=== PATIENT | male | born 1965 | race Caucasian/White ===

== ENCOUNTER 2016-05-14 14:32 | Inpatient (IN) | payer OTHER ==
[2016-05-14] MEDS ORDERED: RX INFO: IV CONTRAST WAS GIVEN 1 EACH MISC MISCELLANE PRN (15:06)
--- NOTE | 2016-05-14 15:10 | ED ---
General Adult HPI - General Chief complaint: Shortness of Breath Stated complaint: SOB Time Seen by Provider: 05/14/16 14:45 Source: EMS, RN notes reviewed, old records reviewed Mode of arrival: ambulatory Limitations: altered mental status - History of Present Illness Initial comments: This is a 50-year-old male who comes to us from [facility]. Patient was sent was because they diagnosed him with pneumonia and altered mental status. According to the report that I received the patient to breathing and staff stated though he is mentally delayed he is altered mentally to them. Patient is unable to give any history because of his condition and there is no family or caregiver with the patient. Patient's x-ray results and lab work were sent with him I will review those. - Related Data Home Medications Medication Instructions Recorded Confirmed Benztropine Mesylate 0.5 mg PO TID 05/14/16 05/14/16 Cetirizine HCl [Zyrtec] 10 mg PO DAILY 05/14/16 05/14/16 Cholecalciferol [Vitamin D3] 2,000 unit PO BID 05/14/16 05/14/16 Gemfibrozil [Lopid] 600 mg PO BID 05/14/16 05/14/16 Multivitamins, Thera [Multivitamin] 1 tab PO DAILY 05/14/16 05/14/16 Propranolol [Inderal] 40 mg PO BID 05/14/16 05/14/16 QUEtiapine FUMARATE [SEROquel] 400 mg PO HS 05/14/16 05/14/16 Ranitidine HCl [Zantac] 150 mg PO BID 05/14/16 05/14/16 clonazePAM [KlonoPIN] 1 mg PO TID@0900,1600,199905/14/16 05/14/16 Allergies Allergy/AdvReac Type Severity Reaction Status Date / Time No Known Allergies Allergy Verified 05/14/16 15:43 Review of Systems ROS Statement: Those systems with pertinent positive or pertinent negative responses have been documented in the HPI. ROS Other: All systems not noted in ROS Statement are negative. General Exam - General Exam Comments Initial Comments: GENERAL: Patient is well-developed and well-nourished. Patient is nontoxic and well- hydrated and is in no acute distress. Patient is somewhat lethargic but does wake up with some stimulation he is unable to answer any questions or ENT: Neck is soft and supple. No significant lymphadenopathy is noted. Oropharynx is clear. Moist mucous membranes. Neck has full range of motion without eliciting any pain. EYES: The sclera were anicteric and conjunctiva were pink and moist. Extraocular movements were intact and pupils were equal round and reactive to light. Eyelids were unremarkable. PULMONARY: Patient is significantly diminished breath sounds on the right side CARDIOVASCULAR: There is a regular rate and rhythm without any murmurs gallops or rubs. ABDOMEN: Soft and nontender with normal bowel sounds. SKIN: Skin is clear with no lesions or rashes and otherwise unremarkable. NEUROLOGIC: Patient is alert and oriented 0. Cranial nerves II through XII are grossly intact. MUSCULOSKELETAL: Normal extremities with adequate strength and full range of motion. No lower extremity swelling or edema. No calf tenderness. PSYCHIATRIC: Unable to assess Limitations: altered mental status Course Vital Signs 05/14/16 05/14/16 05/14/16 14:39 14:48 16:17 Temperature 98.3 F 99.2 F Pulse Rate 80 80 Respiratory 14 14 18 Rate Blood Pressure 112/61 114/58 O2 Sat by Pulse 94 L 95 Oximetry Medical Decision Making - Medical Decision Making I did a computed tomography scan to rule out PE there was no PE found however they saw bilateral infiltrates. - Lab Data Lab Results 05/14/16 Range/Units 15:40 Sample Site rbrach ABG pH 7.36 (7.35-7.45) ABG pCO2 47 H (35-45) mmHg ABG pO2 89 (83-108) mmHg ABG HCO3 26 H (21-25) mmol/L ABG Total CO2 27 H (19-24) mmol/L ABG O2 Saturation 96.0 (94-97) % ABG Base Excess 1.0 mmol/L FiO2 50 % Disposition Clinical Impression: Pneumonia Disposition: ADMITTED IP TO THIS [facility] Time of Disposition: 16:32
[2016-05-14 15:47] LABS: ABG PCO2 47 mmHg (35-45); ABG PH 7.36 (7.35-7.45); ABG PO2 89 mmHg (83-108)
[2016-05-14 15:48] LABS: ABG HCO3 26 mmol/L (21-25); ABG TCO2 27 mmol/L (19-24)
--- NOTE | 2016-05-14 16:21 | CT ---
CT CHEST FOR PULMONARY EMBOLISM. EXAMINATION TYPE: CT chest angio for PE DATE OF EXAM: 05/14/2016 4:02 PM INDICATION: Patient poor historian (special needs). Patient unable to follow directions. Patient le thargic. CT DLP: 672 mGycm, Automated exposure control for dose reduction was used. CONTRAST: Patient injected with 100 mL of Omnipaque 350. COMPARISON: NONE TECHNIQUE: CT of the chest is performed on a spiral scan at 2 mm thick sections. Study is performed with intravenous contrast timed for evaluation for pulmonary embolism. This will limit additional po rtions of the evaluation. 3-D MIP images reconstructed by the technologist are reviewed on the compu ter in the coronal and sagittal planes. FINDINGS: No persistent filling defects are evident to suggest an acute pulmonary embolism. No mediastinal or hilar adenopathy enlarged by CT criteria is evident. Mediastinum shifted to the le ft. There is elevation of the right diaphragm. There are small pretracheal lymph nodes present not la rger than 1 cm. The ascending aorta diameter at the level of the main pulmonary artery is 3.4 cm. Th e main pulmonary artery diameter at the bifurcation is 3.7 cm. Correlate for pulmonary hypertension There is a 1.3 cm density in the posterior right apex. This appears pleural-based. There is a large c onsolidation in the right lower lobe. Correlate for atelectasis and pneumonia. There is a left lower lobe consolidation. Correlate for pneumonia Limited CT section through the upper abdomen are unremarkable. IMPRESSIONS: 1. No acute pulmonary embolism. 2. Bibasilar consolidations. Correlate for pneumonia. 3. There are some additional subtle areas of increased density such as a 1.3 cm density adjacent to t he pleural margin at the right apex. Underlying abnormality such as neoplasm cannot be excluded. Foll ow-up can be performed.
[2016-05-14] MEDS ORDERED: PNEUMONIA PROTOCOL UTILIZED 1 EACH MISC PO PRN (16:33)
[2016-05-14] MEDS: IPRATROPIUM-ALBUTEROL 3 ML NEB INHALATION PRN (16:59)
[2016-05-14] MEDS ORDERED: ACETAMINOPHEN TAB 500 MG TAB PO STA (19:47)
[2016-05-14] MEDS: PROPRANOLOL 40 MG TAB PO SCH (21:30)
[2016-05-14] MEDS: GEMFIBROZIL 600 MG TAB PO SCH (21:30)
[2016-05-14] MEDS: FAMOTIDINE 20 MG TAB PO SCH (21:30)
[2016-05-14] MEDS: CHOLECALCIFEROL 1,000 UNIT TAB PO SCH (21:30)
[2016-05-14] MEDS: TERAZOSIN 5 MG CAP PO SCH (21:30)
[2016-05-14] MEDS: QUEtiapine 400 MG TAB PO SCH (21:32)
[2016-05-15] MEDS ORDERED: FUROSEMIDE 10 MG/ML 4 ML VIAL IV STA ×2 (00:45→18:25)
[2016-05-15 00:50] LABS: Basophils % (A) 0 %; CH 29.4; CHCM 33.5; Eosinophils % (A) 0 %; HDW 3.07; Luc # (Auto) 0.11; Luc % (Auto) 2; Lymphocytes # (A) 0.7 k/uL (1.0-4.8); Lymphocytes % (A) 14 %; MCH 29.6 pg (25.0-35.0); MCHC 33.4 g/dL (31.0-37.0); MCV 88.4 fL (80.0-100.0); Mean Platelet Volume 8.7; Monocytes # (A) 0.1 k/uL (0-1.0); Monocytes % (A) 2 %; Neutrophils # (A) 4.2 k/uL (1.3-7.7); Neutrophils % (A) 82 %; RDW 14.1 % (11.5-15.5); WBC 5.1 k/uL (3.8-10.6); WBC (Perox) 5.21
[2016-05-15 00:54] LABS: Glucose,Whole Blood 146 mg/dL (75-99)
[2016-05-15 00:58] LABS: Anion Gap 13 mmol/L; Blood Urea Nitrogen 18 mg/dL (9-20); Calcium 7.1 mg/dL (8.4-10.2); Carbon Dioxide 27 mmol/L (22-30); Chloride 98 mmol/L (98-107); Glucose 151 mg/dL (74-99); Non-African American GFR(MDRD) >60 (>60 ml/min/1.73 sqM); Sodium 138 mmol/L (137-145)
[2016-05-15 01:08] LABS: Manual Review Performed
[2016-05-15 01:11] LABS: ABG HCO3 29 mmol/L (21-25); ABG PCO2 64 mmHg (35-45); ABG PH 7.27 (7.35-7.45); ABG PO2 81 mmHg (83-108); ABG TCO2 31 mmol/L (19-24)
[2016-05-15 01:12] LABS: ABG Base Excess 2.3 mmol/L; ABG Oxygen Saturation 93.8 % (94-97)
[2016-05-15] MEDS: GEMFIBROZIL 600 MG TAB PO SCH ×2 (06:04→16:43)
--- NOTE | 2016-05-15 07:47 | XR ---
EXAMINATION TYPE: XR chest 2V DATE OF EXAM: 05/15/2016 6:49 AM HISTORY: Pneumonia. REFERENCE: Previous study dated 05/14/2016. FINDINGS: There is apparent elevation of the right hemidiaphragm. There is colonic interposition on t he right. There is right basilar airspace disease. This likely represents atelectasis. The left lung is clear. Heart size is obscured. No definite pleural fluid is seen. IMPRESSION: 1. MARKED ELEVATION RIGHT HEMIDIAPHRAGM. THIS MAY BE DUE TO DIAPHRAGMATIC PARALYSIS. 2. RIGHT BASILAR AIRSPACE DISEASE EITHER REPRESENTING ATELECTASIS OR PNEUMONIA. THIS HAS WORSENED FRO M PREVIOUS.
[2016-05-15] MEDS: LORATADINE 10 MG TAB PO SCH (09:33)
[2016-05-15] MEDS: CHOLECALCIFEROL 1,000 UNIT TAB PO SCH ×2 (09:33→21:24)
[2016-05-15] MEDS: FAMOTIDINE 20 MG TAB PO SCH ×2 (09:33→21:24)
[2016-05-15] MEDS: clonazePAM 1 MG TAB PO SCH ×3 (09:33→20:29)
[2016-05-15] MEDS: MULTIVITAMINS, THERA 1 EACH TAB PO SCH (09:33)
[2016-05-15] MEDS: PROPRANOLOL 40 MG TAB PO SCH ×2 (09:33→21:24)
--- NOTE | 2016-05-15 12:34 | P.CNPUL ---
History of Present Illness Consult date: 05/15/16 Reason for consult: dyspnea, cough, pneumonia Chief complaint: Shortness of breath History of present illness: This is a 50-year-old gentleman with a history of COPD exacerbation and right basilar pneumonia. He was transferred down from [facility]. I was called last night. We recommended some BiPAP therapy for him. Apparently did not want to wear the mask. He is not a particularly good historian. He rambles on and on. Takes a long time to answer questions. The patient is apparently mentally delayed and that explains his poor history. Anyway does not appear to be in any distress at all. Again his chest x-ray shows some right basilar infiltrate in the chronically elevated right hemidiaphragm. It was not clear to us what his complaints were. No additional history can be reliably obtained from this patient. Review of Systems ROS unobtainable: due to mental status Past Medical History Past Medical History: Hypertension Additional Past Medical History / Comment(s): developmentally delayed History of Any Multi-Drug Resistant Organisms: None Reported Past Surgical History: Hernia Repair Additional Past Surgical History / Comment(s): breast reconstructive surgery, hernia surgery x4 Past Anesthesia/Blood Transfusion Reactions: No Reported Reaction Past Psychological History: No Psychological Hx Reported Smoking Status: Former smoker Medications and Allergies Home Medications Medication Instructions Recorded Confirmed Type Cetirizine HCl [Zyrtec] 10 mg PO DAILY 05/14/16 05/14/16 History Cholecalciferol [Vitamin D3] 2,000 unit PO BID 05/14/16 05/14/16 History Gemfibrozil [Lopid] 600 mg PO BID 05/14/16 05/14/16 History Multivitamins, Thera [Multivitamin] 1 tab PO DAILY 05/14/16 05/14/16 History Propranolol [Inderal] 40 mg PO BID 05/14/16 05/14/16 History QUEtiapine FUMARATE [SEROquel] 400 mg PO HS 05/14/16 05/14/16 History Ranitidine HCl [Zantac] 150 mg PO BID 05/14/16 05/14/16 History Terazosin [Hytrin] 5 mg PO HS 05/14/16 05/14/16 History clonazePAM [KlonoPIN] 1 mg PO TID@0900,1600,199905/14/16 05/14/16 History Allergies Allergy/AdvReac Type Severity Reaction Status Date / Time No Known Allergies Allergy Verified 05/14/16 15:43 Physical Exam Osteopathic Statement: *. No significant issues noted on an osteopathic structural exam other than those noted in the History and Physical/Consult. Vitals: Vital Signs Temp Pulse Pulse Resp BP BP Pulse Ox 05/15/16 08:00 98.5 F 76 25 H 123/73 83 L 05/15/16 04:00 98.3 F 67 20 110/62 89 L 05/15/16 02:15 20 90 L 05/15/16 00:45 68 20 104/70 94 L 05/15/16 00:00 97.1 F L 69 20 109/78 97 05/14/16 20:00 97.6 F 86 20 127/80 90 L 05/14/16 19:42 101.5 F H 83 20 123/73 95 05/14/16 18:37 97.8 F 84 14 123/73 95 05/14/16 17:10 78 05/14/16 17:00 98.9 F 80 14 118/67 96 Intake and Output 05/14/16 05/15/16 05/15/16 22:59 06:59 14:59 Intake Total 150 Output Total 1650 Balance -1500 Intake: Intake, IV Titration 150 Amount Levofloxacin 750Mg-D5w 150 Pmx 750 mg In Dextrose/ Water 1 150ml.bag @ 100 mls/hr IVPB Q24H [facility] Rx#: [id number] Output: Urine 1650 Other: Voiding Method Toilet Toilet Toilet Urinal Urinal Urinal # Voids 1 Weight 94.2 kg 94.2 kg No acute distress, oriented 2. No respiratory distress. No audible wheezing. HEENT examination is grossly unremarkable. Neck is Supple. Full range of motion. Cardiovascular examination reveals regular rhythm rate. S1 and S2 normal. Lungs reveal diminished breath sounds on the right. A few scattered rhonchi. No wheezes. Abdomen soft. Extremities are intact. He's getting a well-healed scar over his right breast area. Results - Laboratory Findings CBC and BMP: 05/15/16 00:35 05/15/16 00:35 ABG ABG pH 7.27 (7.35-7.45) L 05/15/16 00:58 ABG pCO2 64 mmHg (35-45) H 05/15/16 00:58 ABG pO2 81 mmHg (83-108) L 05/15/16 00:58 ABG O2 Saturation 93.8 % (94-97) L 05/15/16 00:58 Abnormal lab findings: Abnormal Labs 05/15/16 05/15/16 05/15/16 00:35 00:35 00:42 Plt Count 99 L Lymphocytes # 0.7 L ABG pH ABG pCO2 ABG pO2 ABG HCO3 ABG Total CO2 ABG O2 Saturation Glucose 151 H POC Glucose (mg/dL) 146 H Calcium 7.1 L 05/15/16 00:58 Plt Count Lymphocytes # ABG pH 7.27 L ABG pCO2 64 H ABG pO2 81 L ABG HCO3 29 H ABG Total CO2 31 H ABG O2 Saturation 93.8 L Glucose POC Glucose (mg/dL) Calcium - Diagnostic Findings Chest x-ray: image reviewed Assessment and Plan (1) COPD (chronic obstructive pulmonary disease) Status: Acute (2) Pneumonia Status: Acute Plan: Plan Medications are reviewed. We'll make sure that he is on appropriate medications including DuoNeb and performance with Pulmicort. Also he should be on antibiotics either ceftriaxone and azithromycin or another appropriate combination for community-acquired pneumonia. He is not Particularly Bronchospastic so Steroids Are Not Indicated. We'll Continue to Follow. Follow -Up Chest X-Ray Should Be on a Day or so. Time with Patient: Greater than 30
[2016-05-15] MEDS ORDERED: ACETAMINOPHEN TAB 500 MG TAB PO PRN (14:04)
[2016-05-15] MEDS ORDERED: HYDROcodone/APAP 5-325MG 1 EACH TAB PO PRN (14:04)
--- NOTE | 2016-05-15 14:30 | HP ---
DATE OF ADMISSION: 05/15/2016 CHIEF COMPLAINT: Shortness of breath and cough. HISTORY OF PRESENT ILLNESS: This 50-year-old gentleman with past medical history of multiple medical problems including hypertension, history of developmental delay, history of hernia repair, in the [facility] home was being followed by Dr. Guzmán in the outpatient setting. The patient presented to [facility] with fever, cough, shortness of breath and change in mental status. Patient was diagnosed to have pneumonia. The patient was subsequently transferred to [facility] and admitted for further evaluation and treatment. The patient unable to give a coherent history. The patient had features of respiratory failure. Dr. Hoang was consulted. BIPAP was recommended but apparently the patient refused and the patient trying to take the oxygen away also. Pulse ox was 83 on room air last night. PAST MEDICAL HISTORY: History of hypertension, history of developmental delay, history of hernia repair. Medications prior to admission include home medications are: 1. Hytrin 5 mg p.o. q.h.s. 2. Klonopin 1 mg p.o. t.i.d. 3. Multivitamin 1 p.o. daily. 4. Lopid 600 mg p.o. b.i.d. 6. Zantac 150 mg p.o. b.i.d. 7. Seroquel 400 mg p.o. q.h.s. 8. Vitamin D3 2000 b.i.d. 9. Inderal 40 mg p.o. b.i.d. ALLERGIES: None. FAMILY HISTORY: No history of heart disease or strokes in the family. SOCIAL HISTORY: Previous history of smoking. No history of alcohol intake. REVIEW OF SYSTEMS: Could not be taken at length because of the patient change in mental status and developmental delay. PHYSICAL EXAMINATION: Patient is conscious, confused. Pulse 76, blood pressure 120/70, respirations 16, temperature 98.5. Pulse ox is 90% on 2 liters and down up to 83 on room air. HEENT: Conjunctivae normal. Oral mucosa moist. NECK: no jugular venous distention. No carotid bruit. No lymph node enlargement. CARDIOVASCULAR: S1, S2 muffled. No S3, no S4. RESPIRATORY: Breath sounds diminished at the bases. Breathing efforts are marked increased. Bilateral scattered rhonchi and crackles. Respiratory wheezing also present. ABDOMEN: Soft, nontender. No mass palpable. Legs: No edema. No swelling. Nervous system: Higher function as mentioned. Moves all 4 limbs. No focal motor or sensory deficits. LYMPHATICS: No lymph nodes palpable in the neck, axillae or groin. SKIN: No ulcer, rash or bleeding. LABS: WBC 5.1, hemoglobin is 13. Otherwise, ABGs noted. BMP glucose 146, calcium 7.1. ASSESSMENT: 1. Chronic obstructive pulmonary disease, acute exacerbation, with bibasilar pneumonia, possibly gram-negative with acute hypoxic hypercarbic respiratory failure. 2. Acute respiratory acidosis. 3. Noncompliance with treatment. 4. Thrombocytopenia undetermined etiology. 5. History of hypertension. 6. History of developmental delay. 7. History of hernia repair. 8. History of breast reconstruction surgery. 9. Remote history of nicotine dependence. 10. FULL CODE. RECOMMENDATIONS AND DISCUSSION: In this 50-year-old male who presented with multiple complex medical issues, we will monitor the patient closely. Continue the current medications and continue symptomatic treatment. We will optimize bronchodilator treatment. Consult Dr. Hoang. Empiric antibiotics. DVT prophylaxis. Otherwise, I would also recommend resume the home medications. Follow cultures. Repeat labs will be ordered. ABG's noted. Guarded prognosis because of multiple complex medical issues. Further recommendations to follow. A copy of dictation forwarded to Dr. Guzmán who is the primary care physician. RA
[2016-05-15] MEDS: IPRATROPIUM-ALBUTEROL 3 ML NEB INHALATION SCH ×2 (15:57→19:18)
[2016-05-15] MEDS: LEVOFLOXACIN 750MG-D5W PMX 750 MG in DEXTROSE/WATER 1 150ML.BAG IVPB SCH (16:48)
[2016-05-15 18:56] LABS: ABG Base Excess 5.2 mmol/L; ABG HCO3 29 mmol/L (21-25); ABG PCO2 45 mmHg (35-45); ABG PH 7.43 (7.35-7.45); ABG PO2 58 mmHg (83-108); ABG TCO2 31 mmol/L (19-24)
[2016-05-15 18:59] LABS: Glucose,Whole Blood 192 mg/dL (75-99)
[2016-05-15] MEDS: BUDESONIDE 1 MG/2 ML NEBU INHALATION SCH (19:18)
[2016-05-15] MEDS: FORMOTEROL FUMARATE 20 MCG/2 ML NEBU INHALATION SCH (19:19)
[2016-05-15] MEDS ORDERED: NALOXONE 0.4 MG/ML 1 ML VIAL IV PRN (19:20)
[2016-05-15] MEDS ORDERED: ONDANSETRON 4 MG/2 ML VIAL IVP PRN (19:24)
[2016-05-15] MEDS: methylPREDNISolone SOD SUCCI 40 MG/ML 1 ML VIAL IV SCH ×2 (20:13→23:10)
[2016-05-15 20:34] LABS: Appearance,Urine Clear (Clear); Bilirubin,Urine Negative (Negative); Glucose,Urine (UA) Negative (Negative); Ketones,Urine Negative (Negative); Leukocyte Esterase,Urine Negative (Negative); Mucus,Urine Rare /hpf; Nitrite,Urine Negative (Negative); Particle Count 5187; Protein,Urine Trace (Negative); Specific Gravity,Urine 1.006 (1.001-1.035); Squamous Epithelial Cell,Urine <1 /hpf (0-4); UA Billing (MACRO vs. MICRO) MICRO; Urobilinogen,Urine <2.0 mg/dL (<2.0)
[2016-05-15] MEDS: ALPRAZolam 0.25 MG TAB PO PRN (20:53)
[2016-05-15] MEDS: TERAZOSIN 5 MG CAP PO SCH (21:24)
[2016-05-15] MEDS: QUEtiapine 400 MG TAB PO SCH (21:24)
[2016-05-16] MEDS: ALPRAZolam 0.25 MG TAB PO PRN (04:15)
[2016-05-16 05:07] LABS: Basophils % (A) 1 %; CH 29.5; CHCM 32.5; Eosinophils % (A) 0 %; HCT 43.2 % (39.0-53.0); HDW 2.93; Luc # (Auto) 0.15; Luc % (Auto) 3; Lymphocytes # (A) 0.5 k/uL (1.0-4.8); Lymphocytes % (A) 11 %; MCH 29.6 pg (25.0-35.0); MCHC 32.5 g/dL (31.0-37.0); MCV 91.3 fL (80.0-100.0); Mean Platelet Volume 9.7; Monocytes # (A) 0.2 k/uL (0-1.0); Monocytes % (A) 4 %; Neutrophils # (A) 3.5 k/uL (1.3-7.7); Neutrophils % (A) 80 %; RBC 4.73 m/uL (4.30-5.90); RDW 14.2 % (11.5-15.5); WBC 4.3 k/uL (3.8-10.6); WBC (Perox) 4.52
[2016-05-16 05:12] LABS: Anion Gap 16 mmol/L; Blood Urea Nitrogen 19 mg/dL (9-20); Calcium 7.8 mg/dL (8.4-10.2); Carbon Dioxide 27 mmol/L (22-30); Chloride 99 mmol/L (98-107); Glucose 153 mg/dL (74-99); Magnesium 2.3 mg/dL (1.6-2.3); Non-African American GFR(MDRD) >60 (>60 ml/min/1.73 sqM); Phosphorous 2.8 mg/dL (2.5-4.5); Sodium 142 mmol/L (137-145)
[2016-05-16 05:14] LABS: Potassium 4.6 mmol/L (3.5-5.1)
[2016-05-16] MEDS: methylPREDNISolone SOD SUCCI 40 MG/ML 1 ML VIAL IV SCH ×3 (06:18→18:18)
--- NOTE | 2016-05-16 07:06 | XR ---
EXAMINATION TYPE: XR chest 1V DATE OF EXAM: 05/16/2016 6:42 AM CLINICAL HISTORY: Difficulty breathing an pneumonia progress study. TECHNIQUE: Single AP portable upright view of the chest is obtained. COMPARISON: Chest x-ray from one day earlier. CTA chest 2 days earlier. FINDINGS: There is persistent markedly elevated right hemidiaphragm. There is persistent right media l basilar atelectasis and/or consolidation. There is new right midlung linear atelectasis. There is p ersistent left perihilar opacity. No new pleural effusion or pneumothorax is seen bilaterally. Cardia c silhouette size is within normal limits. Osseous structures are intact. IMPRESSION: There is elevated right hemidiaphragm with right medial basilar atelectasis and/or consol idation and left perihilar infiltrate all redemonstrated. New right midlung lateral linear atelectasi s is noted.
[2016-05-16] MEDS ORDERED: PANTOPRAZOLE 40 MG TABLET PO SCH (07:30)
[2016-05-16] MEDS: PROPRANOLOL 40 MG TAB PO SCH ×2 (08:11→22:06)
[2016-05-16] MEDS: CHOLECALCIFEROL 1,000 UNIT TAB PO SCH ×2 (08:11→22:06)
[2016-05-16] MEDS: LORATADINE 10 MG TAB PO SCH (08:12)
[2016-05-16] MEDS: FAMOTIDINE 20 MG TAB PO SCH ×2 (08:12→22:06)
[2016-05-16] MEDS: GEMFIBROZIL 600 MG TAB PO SCH ×2 (08:12→18:17)
[2016-05-16] MEDS: IPRATROPIUM-ALBUTEROL 3 ML NEB INHALATION SCH ×4 (08:23→19:29)
[2016-05-16] MEDS: FORMOTEROL FUMARATE 20 MCG/2 ML NEBU INHALATION SCH ×2 (08:23→19:29)
[2016-05-16] MEDS: BUDESONIDE 1 MG/2 ML NEBU INHALATION SCH ×2 (08:23→19:29)
--- NOTE | 2016-05-16 09:20 | P.PN ---
Subjective Progress note dated 05/16/2016 This is a 50-year-old gentleman that we moved over here from the sixth floor yesterday. He apparently was very agitated and confused. He is a mentally delayed anyway and the patient was a pulling off his oxygen point office BiPAP. His saturations were low. I moved him over here just for closer monitoring and observation. Currently he is either between room air in 2 L. His saturations are okay today. He is getting appointment 9 IV at [facility]. I came to the ICU yesterday on the . Currently we place him on DuoNeb's. He's also on Perforomist and Pulmicort updrafts twice a day Solu-Medrol 40 every 6. He received Lasix yesterday. His head CT was initially negative. He seemed to be a bit more comfortable right now. Chest x-ray shows bibasilar and bilateral infiltrates. Objective - Vital Signs Vital signs: Vital Signs Temp 98.9 F 05/16/16 04:00 Pulse 79 05/16/16 08:48 Resp 20 05/16/16 07:00 BP 104/58 05/16/16 07:00 Pulse Ox 92 L 05/16/16 07:00 Intake & Output 05/15/16 05/16/16 05/16/16 18:59 06:59 18:59 Intake Total 422 240 Output Total 1830 Balance 422 -1590 Weight 91.6 kg Intake: IV 240 0.9 240 Oral 422 Output: Urine 1830 Other: Voiding Method Toilet Indwelling Catheter Urinal # Voids 2 2 - Exam No acute distress. Lying on his side. No respiratory difficulty. No audible wheezing. HEENT examination is grossly unremarkable. Mucous membranes are moist. No oral lesions. Neck supple. Full range of motion. No adenopathy or thyromegaly. Cardiovascular examination reveals regular rhythm rate. Not tachycardic. His heart rates regular. Lungs reveal some mild coarse rhonchi. No wheezes. A few crackles. Doesn't take deep breaths. Abdomen soft bowel sounds are heard. Extremities are intact. - Labs CBC & Chem 7: 05/16/16 04:39 05/16/16 04:39 Labs: Abnormal Lab Results - Last 24 Hours (Table) 05/15/16 05/15/16 05/15/16 Range/Units 18:08 18:42 20:00 Plt Count (150-450) k/uL Lymphocytes # (1.0-4.8) k/uL ABG pO2 58 L (83-108) mmHg ABG HCO3 29 H (21-25) mmol/L ABG Total CO2 31 H (19-24) mmol/L ABG O2 Saturation 90.0 L (94-97) % Glucose (74-99) mg/dL POC Glucose (mg/dL) 192 H (75-99) mg/dL Calcium (8.4-10.2) mg/dL Urine Protein Trace H (Negative) Urine Blood Trace H (Negative) Urine Mucus Rare H (None) /hpf 05/16/16 05/16/16 Range/Units 04:39 04:39 Plt Count 102 L (150-450) k/uL Lymphocytes # 0.5 L (1.0-4.8) k/uL ABG pO2 (83-108) mmHg ABG HCO3 (21-25) mmol/L ABG Total CO2 (19-24) mmol/L ABG O2 Saturation (94-97) % Glucose 153 H (74-99) mg/dL POC Glucose (mg/dL) (75-99) mg/dL Calcium 7.8 L (8.4-10.2) mg/dL Urine Protein (Negative) Urine Blood (Negative) Urine Mucus (None) /hpf Microbiology - Last 24 Hours (Table) 05/15/16 20:00 Urine Culture - Preliminary Urine,Catheterized 05/14/16 20:33 Blood Culture - Preliminary Blood No Growth after 24 hours 05/14/16 20:09 Blood Culture - Preliminary Blood No Growth after 24 hours Assessment and Plan (1) COPD (chronic obstructive pulmonary disease) Status: Acute (2) Pneumonia Status: Acute Plan: Plan Medications are reviewed. We'll make sure that he is on appropriate medications including DuoNeb and performance with Pulmicort. Also he should be on antibiotics either ceftriaxone and azithromycin or another appropriate combination for community-acquired pneumonia. He is not Particularly Bronchospastic so Steroids Are Not Indicated. We'll Continue to Follow. Follow -Up Chest X-Ray Should Be on a Day or so. Plan dated 05/16/2016 Medications are reviewed. Additional recommendations suggestions are forthcoming. Later today. Remained stable we consented back out to the floor. No additional recommendations are made. We'll continue to follow. We'll review the x-rays labs and medications. Prognosis is guarded. Time with Patient: Greater than 30
[2016-05-16] MEDS: clonazePAM 1 MG TAB PO SCH ×3 (12:30→20:23)
[2016-05-16] MEDS: MULTIVITAMINS, THERA 1 EACH TAB PO SCH (12:44)
[2016-05-16] MEDS: LEVOFLOXACIN 750MG-D5W PMX 750 MG in DEXTROSE/WATER 1 150ML.BAG IVPB SCH (16:13)
--- NOTE | 2016-05-16 19:39 | PN ---
DATE OF SERVICE: 05/16/2016 This 50-year-old gentleman admitted with COPD, acute exacerbation, as well as acute hypoxic hypercarbic respiratory failure also has a feeling of being restless. The patient also is developing delirium. The patient keeps on taking the oxygen away. Patient had desaturation last night and was transferred to ICU and is being closely monitored. Chest x-ray showed elevated right hemidiaphragm as well as right basilar lesions and consolidation. Dr. Hoang's evaluation is in progress at this time. The patient is confused and sedated at this time. Patient is on IV steroids as well. Past medical history reviewed. Review of systems could not be taken. Current medications are reviewed and include: 1. Tylenol 500 mg q.6 p.r.n. 2. DuoNeb q.i.d. and p.r.n. 3. Pulmicort 1 mg b.i.d. 4. Vitamin D3 2000 b.i.d. 5. Klonopin 1 mg p.o. t.i.d. 6. Pepcid 20 mg p.o. b.i.d. 7. Perforomist 20 mcg b.i.d. 8. Lopid 600 mg daily. 9. Levaquin 750 q.24 hours. 10. Solu-Medrol 40 IV q.6. 11. Multivitamins 1 p.o. daily. 12. Narcan. 13. Zofran. 14. Inderal. 15. Seroquel 400 mg at bedtime. 16. Hytrin 5 mg p.o. at bedtime. PHYSICAL EXAMINATION: Patient is confused. Pulse is 60. Blood pressure is 94/48, respiration 18, temperature normal, pulse ox 94% on 2 L. Last night the ABG showed pH of 7.27, pCO2 of 64, and pO2 of 81. HEENT: Conjunctivae normal. Oral mucosa moist. NECK: No jugular venous distention. No carotid bruit. No lymph node enlargement. CARDIOVASCULAR SYSTEM: S1, S2 muffled. No S3. No S4. RESPIRATORY SYSTEM: Breath sounds diminished at the bases. Bilateral scattered rhonchi and crackles. ABDOMEN: Soft, non-tender. No mass palpable. LEGS: No edema. No swelling. NERVOUS SYSTEM: Diffusely weak. LABS: CBC within normal limits. Platelets are 102. Other labs are noted. UA noted. ASSESSMENT: 1. Chronic obstructive pulmonary disease, acute exacerbation, with acute bibasilar pneumonia, possibly Gram-negative, with acute hypoxic hypercarbic respiratory failure. 2. Acute respiratory acidosis. 3. Noncompliance with treatment. 4. Thrombocytopenia, mild, of undetermined etiology. 5. History of hypertension. 6. History of developmental delay. 7. History of hernia repair. 8. History of breast reconstruction surgery. 9. Remote history of nicotine dependence. 10. Change in mental status, metabolic encephalopathy, multifactorial. 11. Gait dysfunction. 12. FULL CODE. RECOMMENDATIONS AND DISCUSSION: In this 50-year-old gentleman who presented with multiple complex medical issues, we will monitor the patient closely, continue the current medications, continue symptomatic treatment, continue with bronchodilators, antibiotics as well as IV steroids. Closely follow with Dr. Hoang. Monitor closely in ICU. Guarded prognosis because of multiple complex medical issues. Further recommendations to follow.
[2016-05-16] MEDS: QUEtiapine 400 MG TAB PO SCH (22:05)
[2016-05-16] MEDS: TERAZOSIN 5 MG CAP PO SCH (22:05)
[2016-05-17] MEDS: methylPREDNISolone SOD SUCCI 40 MG/ML 1 ML VIAL IV SCH ×2 (01:34→06:59)
[2016-05-17 01:39] LABS: Glucose,Whole Blood 138 mg/dL (75-99)
[2016-05-17] MEDS ORDERED: RX INFO: IV CONTRAST WAS GIVEN 1 EACH MISC MISCELLANE PRN (02:39)
--- NOTE | 2016-05-17 04:34 | CT ---
EXAMINATION TYPE: CT brain wo con DATE OF EXAM: 05/17/2016 4:11 AM COMPARISON: 05/14/2016 CT brain outside exam. HISTORY: AMS CT DLP: 1998.10 mGycm Automated exposure control for dose reduction was used. FINDINGS: There is no acute intracranial hemorrhage, mass effect, or midline shift identified. The ventricles and sulci are within normal limits in size. The globes are intact. Mucosal thickening is noted in th e ethmoid sinuses and maxillary sinuses with chronic sinusitis changes. IMPRESSION: No acute intracranial hemorrhage, mass effect, or midline shift is seen. If clinical symptoms persist a follow-up in [address] scan or MRI study would be helpful . The study is limited due to multiple artifacts.
--- NOTE | 2016-05-17 04:58 | CT ---
EXAMINATION TYPE: CT angio head neck DATE OF EXAM: 05/17/2016 4:11 AM COMPARISON: CT brain 05/17/2016. HISTORY: AMS CT DLP: 1997.10 mGycm CONTRAST: Performed with IV Contrast, patient injected with 100 mL of Omnipaque 350. Combination Contrast CTA cervical carotids and [place] of [place] CTA cervical carotids with 3-D recons truction Contrast CTA of the cervical carotids was performed 3-D reconstruction imaging obtained at a separate workstation. FINDINGS: THE STUDY IS EXTREMELY LIMITED DUE TO MOTION ARTIFACTS ESPECIALLY INVOLVING [place] OF WILLI S STUDY. Right carotid system: No significant plaque is seen of the right common carotid artery. There is no significant plaque is noted at the carotid bulb and proximal ICA. No significant diameter reduction. ECA is patent. Right vertebral artery appears unremarkable. Left carotid system: No significant plaque is seen of the left common carotid artery. There is mild plaque also noted at the carotid bulb and proximal ICS. No significant diameter reduction. ECA is p atent. Left vertebral artery appears unremarkable. Others: Mild emphysematous changes are suggested in the upper lung madrigal. There is evidence of mild- to-moderate right-sided pleural effusion and atelectatic changes in the visualized right upper lung f ield. Faint benign-appearing nodularity is noted in the right upper lung field. Mild left-sided pleur al effusion and scarring is suggested. Moderate degenerative changes are present in the cervical spine with reversal of normal cervical lord osis. IMPRESSION: 1. No significant diameter reduction to account for the patient's symptoms in this limited study. CTA [place] with 3-D reconstruction Contrast CTA of the [place] was performed 3-D reconstruction imaging obtained at a separate workstation. Vertebrobasilar system as well as intracranial portions of the internal carotid arteries and their ma harjinder tributaries are patent. I do not see evidence for sizable aneurysm or vascular malformation. Pl ease note MRI provides greater sensitivity and specificity. Visualized brain appears grossly unremar kable. IMPRESSION: 1. No siginificant abnormality in this limited study of the [place]. A repeat study is recom mended.
[2016-05-17 05:05] LABS: Aty Lym Flag Slight; CHCM 31.7; HCT 44.9 % (39.0-53.0); HDW 2.89; HGB 14.1 gm/dL (13.0-17.5); Hypochromasia Slight; MCH 28.8 pg (25.0-35.0); MCHC 31.3 g/dL (31.0-37.0); MCV 91.9 fL (80.0-100.0); Mean Platelet Volume 9.4; RBC 4.89 m/uL (4.30-5.90); RDW 13.8 % (11.5-15.5); WBC 4.1 k/uL (3.8-10.6)
[2016-05-17 05:17] LABS: Anion Gap 10 mmol/L; Calcium 7.9 mg/dL (8.4-10.2); Carbon Dioxide 35 mmol/L (22-30); Chloride 98 mmol/L (98-107); Glucose 146 mg/dL (74-99); Non-African American GFR(MDRD) >60 (>60 ml/min/1.73 sqM); Sodium 143 mmol/L (137-145)
[2016-05-17 05:20] LABS: Blood Urea Nitrogen 21 mg/dL (9-20); Potassium 5.1 mmol/L (3.5-5.1)
[2016-05-17 05:21] LABS: Magnesium 2.8 mg/dL (1.6-2.3); Phosphorous 2.7 mg/dL (2.5-4.5)
[2016-05-17 05:32] LABS: Add Differential Manual Differential
[2016-05-17 05:34] LABS: Manual Review Performed; Nucleated Red Blood Cells 0 /100 WBC (0-0); Total Cells Counted 100
[2016-05-17] MEDS: FORMOTEROL FUMARATE 20 MCG/2 ML NEBU INHALATION SCH ×2 (07:25→19:22)
[2016-05-17] MEDS: IPRATROPIUM-ALBUTEROL 3 ML NEB INHALATION SCH ×4 (07:25→19:22)
[2016-05-17] MEDS: BUDESONIDE 1 MG/2 ML NEBU INHALATION SCH ×2 (07:25→19:22)
--- NOTE | 2016-05-17 08:03 | XR ---
EXAMINATION TYPE: XR chest 1V portable DATE OF EXAM: 05/17/2016 6:51 AM CLINICAL HISTORY: Difficulty breathing progress study. TECHNIQUE: Single AP portable upright view of the chest is obtained. COMPARISON: Chest x-ray from one day earlier FINDINGS: There is persistent markedly elevated right hemidiaphragm. There is persistent right media l basilar atelectasis and/or consolidation. There is improved right midlung linear atelectasis. There is worsening central left lung opacity. No new pleural effusion or pneumothorax is seen bilaterally. Cardiac silhouette size is within normal limits. Osseous structures are intact. IMPRESSION: Elevated right hemidiaphragm with associated right basilar atelectasis and/or infiltrate redemonstrated. Worsening central left lung edema and/or infiltrate is felt present.
[2016-05-17 08:10] LABS: ABG Base Excess 10.6 mmol/L; ABG HCO3 36 mmol/L (21-25); ABG PCO2 62 mmHg (35-45); ABG PH 7.38 (7.35-7.45); ABG PO2 69 mmHg (83-108); ABG TCO2 38 mmol/L (19-24)
[2016-05-17 08:31] LABS: Glucose,Whole Blood 165 mg/dL (75-99)
[2016-05-17] MEDS: INSULIN LISPRO (humaLOG) 300 UNIT/3 ML VIAL SQ SCH ×4 (09:11→22:15)
[2016-05-17] MEDS: ENOXAPARIN 40 MG/0.4 ML SYRINGE SQ SCH (10:32)
--- NOTE | 2016-05-17 10:42 | P.PN ---
Subjective Progress note dated 05/16/2016 This is a 50-year-old gentleman that we moved over here from the sixth floor yesterday. He apparently was very agitated and confused. He is a mentally delayed anyway and the patient was a pulling off his oxygen point office BiPAP. His saturations were low. I moved him over here just for closer monitoring and observation. Currently he is either between room air in 2 L. His saturations are okay today. He is getting appointment 9 IV at [facility]. I came to the ICU yesterday on the . Currently we place him on DuoNeb's. He's also on Perforomist and Pulmicort updrafts twice a day Solu-Medrol 40 every 6. He received Lasix yesterday. His head CT was initially negative. He seemed to be a bit more comfortable right now. Chest x-ray shows bibasilar and bilateral infiltrates. Progress note dated 05/17/2016 This 50-year-old male was moved to the ICU a couple days back. He became very agitated and confused and had some difficulty was respiratory status. Currently though, his mental status is declined significantly. I asked the nurse to go ahead and get a neurology consult and also an EEG. Anyway the patient's very hypoactive at this time. I'm not sure whether or not it represents delirium or some other more ominous process. The patient is currently on oxygen at 4 L. Also getting appointment 9 IV at [facility]. Blood gases were done last night. It was apparently ordered by the primary service. PO2 is 69 pCO2 of 62 and pH was essentially normal. Objective - Vital Signs Vital signs: Vital Signs Temp 99.9 F H 05/17/16 08:00 Pulse 83 05/17/16 09:00 Resp 20 05/17/16 07:00 BP 144/73 05/17/16 09:00 Pulse Ox 92 L 05/17/16 09:00 Intake & Output 05/16/16 05/17/16 05/17/16 18:59 06:59 18:59 Intake Total 340 260 60 Output Total 094 7935 250 Balance -475 -855 -190 Weight 86.4 kg Intake: IV 240 260 60 0.9 240 260 60 Intake, IV Titration 100 Amount Levofloxacin 750Mg-D5w 100 Pmx 750 mg In Dextrose/ Water 1 150ml.bag @ 100 mls/hr IVPB Q24H [facility] Rx#: [id number] Output: Urine 815 1115 250 Other: Voiding Method Indwelling Catheter Indwelling Catheter # Bowel Movements 1 - Exam No acute distress. Lying on his side. No respiratory difficulty. No audible wheezing. HEENT examination is grossly unremarkable. Mucous membranes are moist. No oral lesions. Neck supple. Full range of motion. No adenopathy or thyromegaly. Cardiovascular examination reveals regular rhythm rate. Not tachycardic. His heart rates regular. Lungs reveal some mild coarse rhonchi. No wheezes. A few crackles. Doesn't take deep breaths. Abdomen soft bowel sounds are heard. Extremities are intact. - Labs CBC & Chem 7: 05/17/16 04:33 05/17/16 04:33 Labs: Abnormal Lab Results - Last 24 Hours (Table) 05/17/16 05/17/16 05/17/16 Range/Units 01:36 04:33 04:33 Plt Count 131 L (150-450) k/uL Lymphocytes # (Manual) 0.9 L (1.0-4.8) k/uL ABG pCO2 (35-45) mmHg ABG pO2 (83-108) mmHg ABG HCO3 (21-25) mmol/L ABG Total CO2 (19-24) mmol/L ABG O2 Saturation (94-97) % Carbon Dioxide 35 H (22-30) mmol/L BUN 21 H (9-20) mg/dL Glucose 146 H (74-99) mg/dL POC Glucose (mg/dL) 138 H (75-99) mg/dL Calcium 7.9 L (8.4-10.2) mg/dL Magnesium 2.8 H (1.6-2.3) mg/dL 05/17/16 05/17/16 Range/Units 08:05 08:23 Plt Count (150-450) k/uL Lymphocytes # (Manual) (1.0-4.8) k/uL ABG pCO2 62 H (35-45) mmHg ABG pO2 69 L (83-108) mmHg ABG HCO3 36 H (21-25) mmol/L ABG Total CO2 38 H (19-24) mmol/L ABG O2 Saturation 92.0 L (94-97) % Carbon Dioxide (22-30) mmol/L BUN (9-20) mg/dL Glucose (74-99) mg/dL POC Glucose (mg/dL) 165 H (75-99) mg/dL Calcium (8.4-10.2) mg/dL Magnesium (1.6-2.3) mg/dL Microbiology - Last 24 Hours (Table) 05/14/16 20:33 Blood Culture - Preliminary Blood No Growth after 48 hours 05/14/16 20:09 Blood Culture - Preliminary Blood No Growth after 48 hours 05/15/16 20:00 Urine Culture - Final Urine,Catheterized Assessment and Plan (1) COPD (chronic obstructive pulmonary disease) Status: Acute (2) Pneumonia Status: Acute Plan: Plan Medications are reviewed. We'll make sure that he is on appropriate medications including DuoNeb and performance with Pulmicort. Also he should be on antibiotics either ceftriaxone and azithromycin or another appropriate combination for community-acquired pneumonia. He is not Particularly Bronchospastic so Steroids Are Not Indicated. We'll Continue to Follow. Follow -Up Chest X-Ray Should Be on a Day or so. Plan dated 05/16/2016 Medications are reviewed. Additional recommendations suggestions are forthcoming. Later today. Remained stable we consented back out to the floor. No additional recommendations are made. We'll continue to follow. We'll review the x-rays labs and medications. Prognosis is guarded. Plan dated 05/17/2016 The patient will have a neurology consult and and also an EEG. He may benefit from a lumbar puncture. A CT of the brain was not really diagnostic. The patient's mental status has declined. I'm not sure whether it's drug-related or encephalopathic. It could be infectious as well. Anyway neurology will help sort that out. We'll continue on current medications. Labs x-rays medications are all reviewed. We'll hold all sedatives hypnotics narcotics tranquilizers so that he doesn't confuse the picture. Time with Patient: Less than 30
[2016-05-17 12:39] LABS: Glucose,Whole Blood 149 mg/dL (75-99)
[2016-05-17] MEDS: MULTIVITAMINS, THERA 1 EACH TAB PO SCH (12:59)
[2016-05-17] MEDS: CHOLECALCIFEROL 1,000 UNIT TAB PO SCH ×2 (12:59→21:48)
[2016-05-17] MEDS: PROPRANOLOL 40 MG TAB PO SCH ×2 (12:59→21:48)
[2016-05-17] MEDS: GEMFIBROZIL 600 MG TAB PO SCH ×2 (12:59→17:34)
[2016-05-17] MEDS: FAMOTIDINE 20 MG TAB PO SCH ×2 (12:59→22:11)
--- NOTE | 2016-05-17 16:29 | MR ---
MR brain without contrast HISTORY: Altered mental status, right facial droop Multiplanar multisequence imaging through the brain and correlated to CT brain same date There is motion on the exam, fast brain protocol was utilized. There is no restricted diffusion. There is no hemorrhage or hydrocephalus. Corpus callosum, pituitary , cervical medullary junction, cerebellopontine angles are within normal limits. There are normal vas cular flow voids. Inflammatory change noted in the maxillary sinus right greater than left. Orbits sh ow symmetric appearance. IMPRESSION: Exam somewhat limited. Sinus disease. No acute brain abnormality evident
[2016-05-17 17:31] LABS: Glucose,Whole Blood 138 mg/dL (75-99)
[2016-05-17] MEDS: LEVOFLOXACIN 750MG-D5W PMX 750 MG in DEXTROSE/WATER 1 150ML.BAG IVPB SCH (17:34)
--- NOTE | 2016-05-17 19:32 | PN ---
DATE OF SERVICE: 05/17/2016 This 50-year-old gentleman who presented with COPD acute exacerbation as well as bibasilar pneumonia with acute respiratory failure, also had some change in mental status, metabolic encephalopathy. The patient also had history of noncompliance. Not wearing oxygen mask. Subsequently patient was transferred to ICU and currently the patient is off any multiple sedations and the patient is still drowsy and not arousable. Neurology has been consulted. CAT scan and other neurovascular work-up is also underway. Dr. Hoang is following the patient closely. The patient did have features of hypercarbic respiratory failure in the ABGs, but most of the ABGs interestingly are improving. The patient is sating about 97% on 2 to 3 L oxygen. Past medical history reviewed. Review of systems could not be taken, the patient is sedated. Current medications are: 1. Tylenol 500 mg q.6 p.r.n. 2. DuoNeb q.i.d. and p.r.n. 3. Pulmicort 1 mg b.i.d. 4. Vitamin D3 2000 b.i.d. 5. Lovenox 40 mg subcu daily. 6. Pepcid 20 mg p.o. b.i.d. 7. Perforomist 20 mg b.i.d. 8. Lopid 600 mg b.i.d. 9. Humalog scale. 10. Levaquin 750 q.24 hours. 11. Multivitamins 1 p.o. daily. 12. Narcan 0.2 q.2 p.r.n. 13. Zofran 4 mg q.6 p.r.n. 14. Inderal 40 mg p.o. b.i.d. 15. Seroquel 400 mg q.h.s. 16. Terazosin. 17. Hytrin 5 mg p.o. q.h.s. PHYSICAL EXAMINATION: The patient is sedated. Pulse 75, blood pressure 104/61. Respiratory rate 15, temperature 95.8, temperature is normal, pulse ox 95% on 2 liters. HEENT: Conjunctivae normal. Pupils are constricted. CARDIOVASCULAR SYSTEM: S1, S2 muffled. No S3, no S4. RESPIRATORY: Breath sounds diminished at the bases. A few scattered rhonchi and crackles. No jugular venous distention. ABDOMEN: Soft. Nontender. No mass palpable. No hepatosplenomegaly. LEGS: No edema. No swelling. CENTRAL NERVOUS SYSTEM: Higher functions as mentioned earlier. Moves all four limbs. No focal deficits. LYMPHATICS: No lymph nodes palpable in the neck, axillae or groin. SKIN: No ulcer, rash or bleeding. LABS: Platelets 131. ABGs noted. pH 7.38, and PCO2 62. Otherwise, Accu-Cheks 165, magnesium is 2.8. Chest x-ray noted. ASSESSMENT: 1. Chronic obstructive pulmonary disease, acute exacerbation, with acute bibasilar pneumonia, possibly gram-negative with acute hypoxic hypercarbic respiratory failure, status post BiPAP. 2. Acute respiratory acidosis. 3. Noncompliance with treatment. 4. Thrombocytopenia, mild, undetermined etiology. 5. History of hypertension. 6. History of developmental delay. 7. History of hernia repair. 8. History of surgery. 9. Remote history nicotine dependence. 10. Change in mental status, metabolic encephalopathy, multifactorial. 11. Gait dysfunction. 12. Elevated right hemidiaphragm. 13. FULL CODE. RECOMMENDATIONS AND DISCUSSION: In this 50-year-old gentleman who presented with multiple complex medical issues, we will monitor the patient closely. Continue with current medications. Continue symptomatic treatment. Continue the bronchodilators. Continue with the rest of the medications. Follow closely with Dr. Hoang. Otherwise, neurovascular evaluation. CT angio showed no significant abnormality in the [place] of Max. Chest x-ray noted, still showed persistent elevated right hemidiaphragm and infiltrates . Otherwise, see orders for details. Repeat labs will be ordered. Guarded prognosis. Further recommendations to follow. [facility]
[2016-05-17] MEDS ORDERED: ACETAMINOPHEN IV (For NPO) 1,000 MG in EMPTY BAG 1 BAG IVPB PRN (21:40)
[2016-05-17] MEDS: TERAZOSIN 5 MG CAP PO SCH (21:48)
[2016-05-17] MEDS: QUEtiapine 400 MG TAB PO SCH (21:48)
[2016-05-17 22:17] LABS: Glucose,Whole Blood 130 mg/dL (75-99)
[2016-05-17] MEDS: clonazePAM 1 MG TAB PO SCH (22:21)
[2016-05-17] MEDS ORDERED: SODIUM CHLORIDE 0.65% NASAL SPRAY 44 ML BTL NASAL PRN (23:27)
[2016-05-18 05:17] LABS: Aty Lym Flag Slight; CH 28.9; HCT 39.7 % (39.0-53.0); HDW 2.85; HGB 12.6 gm/dL (13.0-17.5); Hypochromasia Slight; MCH 28.8 pg (25.0-35.0); MCHC 31.7 g/dL (31.0-37.0); MCV 90.9 fL (80.0-100.0); Mean Platelet Volume 8.5; RBC 4.37 m/uL (4.30-5.90); RDW 13.7 % (11.5-15.5); WBC (Perox) 4.17
[2016-05-18 05:28] LABS: Anion Gap 10 mmol/L; Blood Urea Nitrogen 26 mg/dL (9-20); Calcium 8.3 mg/dL (8.4-10.2); Carbon Dioxide 38 mmol/L (22-30); Chloride 101 mmol/L (98-107); Glucose 158 mg/dL (74-99); Magnesium 2.9 mg/dL (1.6-2.3); Non-African American GFR(MDRD) >60 (>60 ml/min/1.73 sqM); Phosphorous 2.4 mg/dL (2.5-4.5); Sodium 149 mmol/L (137-145)
[2016-05-18 06:11] LABS: Add Differential Manual Differential
[2016-05-18] MEDS ORDERED: Phosphorus Replacement Protoco 1 EACH MISC MISCELLANE PRN (06:21)
[2016-05-18] MEDS ORDERED: SODIUM PHOSPHATE 10 MMOL in SODIUM CHLORIDE 0.9% 250 ML IVPB ONE (06:21)
[2016-05-18 06:23] LABS: Large Platelets Present; Manual Review Performed; Nucleated Red Blood Cells 0 /100 WBC (0-0); Total Cells Counted 100
[2016-05-18 06:24] LABS: Reactive Lymphocytes Present
--- NOTE | 2016-05-18 07:33 | XR ---
EXAMINATION TYPE: XR chest 1V portable DATE OF EXAM: 05/18/2016 6:42 AM COMPARISON: Prior chest x-ray April 2016 HISTORY: Abnormal chest x-ray, follow-up TECHNIQUE: Single frontal view of the chest is obtained. FINDINGS: Patient is rotated and there are overlying cardiac leads persistent elevation of the right hemidiaphragm. Bibasilar density is again noted, central vascularity is prominent. Interstitium may be slightly improved. No evident pneumothorax. IMPRESSION: Similar findings. There may be basilar atelectasis or pneumonia versus edema, there may be some slight interval improvement in aeration. Additional follow-up recommended.
[2016-05-18] MEDS: BUDESONIDE 1 MG/2 ML NEBU INHALATION SCH (07:34)
[2016-05-18] MEDS: FORMOTEROL FUMARATE 20 MCG/2 ML NEBU INHALATION SCH (07:34)
[2016-05-18] MEDS: IPRATROPIUM-ALBUTEROL 3 ML NEB INHALATION SCH ×5 (07:34→19:23)
[2016-05-18] MEDS: CHOLECALCIFEROL 1,000 UNIT TAB PO SCH ×2 (08:07→21:44)
[2016-05-18] MEDS: GEMFIBROZIL 600 MG TAB PO SCH ×2 (08:07→19:02)
[2016-05-18] MEDS: PROPRANOLOL 40 MG TAB PO SCH ×2 (08:08→21:44)
[2016-05-18] MEDS: ENOXAPARIN 40 MG/0.4 ML SYRINGE SQ SCH (08:08)
[2016-05-18 08:11] LABS: Glucose,Whole Blood 129 mg/dL (75-99)
[2016-05-18 08:12] LABS: Glucose,Whole Blood 138 mg/dL (75-99)
[2016-05-18] MEDS: INSULIN LISPRO (humaLOG) 300 UNIT/3 ML VIAL SQ SCH ×4 (08:12→21:44)
[2016-05-18] MEDS ORDERED: FAMOTIDINE 20 MG/2 ML VIAL IV SCH (09:00)
--- NOTE | 2016-05-18 10:56 | P.PN ---
Subjective Progress note dated 05/16/2016 This is a 50-year-old gentleman that we moved over here from the sixth floor yesterday. He apparently was very agitated and confused. He is a mentally delayed anyway and the patient was a pulling off his oxygen point office BiPAP. His saturations were low. I moved him over here just for closer monitoring and observation. Currently he is either between room air in 2 L. His saturations are okay today. He is getting appointment 9 IV at [facility]. I came to the ICU yesterday on the . Currently we place him on DuoNeb's. He's also on Perforomist and Pulmicort updrafts twice a day Solu-Medrol 40 every 6. He received Lasix yesterday. His head CT was initially negative. He seemed to be a bit more comfortable right now. Chest x-ray shows bibasilar and bilateral infiltrates. Progress note dated 05/17/2016 This 50-year-old male was moved to the ICU a couple days back. He became very agitated and confused and had some difficulty was respiratory status. Currently though, his mental status is declined significantly. I asked the nurse to go ahead and get a neurology consult and also an EEG. Anyway the patient's very hypoactive at this time. I'm not sure whether or not it represents delirium or some other more ominous process. The patient is currently on oxygen at 4 L. Also getting appointment 9 IV at [facility]. Blood gases were done last night. It was apparently ordered by the primary service. PO2 is 69 pCO2 of 62 and pH was essentially normal. Progress note dated 05/18/2016 This 50-year-old male was moved to the ICU couple days back because of mental status changes agitation and confusion. He also some abnormal respiratory issues which have improved. His mental status actually has improved over the last 24 hours. I had neurology come and see him. A CT of the head was negative. An MRI did not show anything acute. Anyway he is improved somewhat from the mental status standpoint. I did ask them to consider a lumbar puncture. Other than that the patient's getting O2 at 4 L. Getting appointment 9 IV at 50 mL an hour. Chest x-ray has improved. He's got some bibasilar infiltrates which have improved. This may be on the basis of some fluid overload and/or some infiltrate/pneumonia. One consideration to him might be posterior reversible encephalopathy syndrome. Objective - Vital Signs Vital signs: Vital Signs Temp 97.5 F L 05/18/16 08:00 Pulse 91 05/18/16 08:00 Resp 18 05/18/16 08:00 BP 138/88 05/18/16 08:00 Pulse Ox 93 L 05/18/16 08:00 Intake & Output 05/17/16 05/18/16 05/18/16 18:59 06:59 18:59 Intake Total 240 340 70 Output Total 825 865 115 Balance -585 -525 -45 Weight 84.6 kg Intake: IV 240 240 70 0.9 240 240 70 Intake, IV Titration 100 Amount ACETAMINOPHEN IV (For NPO 100 ) 1,000 mg In Empty Bag 1 bag @ 400 mls/hr IVPB Q6HR [facility] Rx#:[id number] Output: Urine 825 865 115 Other: Voiding Method Indwelling Catheter Indwelling Catheter # Voids 2 - Exam No acute distress. Lying on his side. No respiratory difficulty. No audible wheezing. HEENT examination is grossly unremarkable. Mucous membranes are moist. No oral lesions. Neck supple. Full range of motion. No adenopathy or thyromegaly. Cardiovascular examination reveals regular rhythm rate. Not tachycardic. His heart rates regular. Lungs reveal some mild coarse rhonchi. No wheezes. A few crackles. Doesn't take deep breaths. Abdomen soft bowel sounds are heard. Extremities are intact. - Labs CBC & Chem 7: 05/18/16 04:45 05/18/16 04:45 Labs: Abnormal Lab Results - Last 24 Hours (Table) 05/17/16 05/17/16 05/17/16 Range/Units 12:16 17:27 22:15 Hgb (13.0-17.5) gm/dL Lymphocytes # (Manual) (1.0-4.8) k/uL Sodium (137-145) mmol/L Carbon Dioxide (22-30) mmol/L BUN (9-20) mg/dL Creatinine (0.66-1.25) mg/dL Glucose (74-99) mg/dL POC Glucose (mg/dL) 149 H 138 H 130 H (75-99) mg/dL Calcium (8.4-10.2) mg/dL Phosphorus (2.5-4.5) mg/dL Magnesium (1.6-2.3) mg/dL 05/18/16 05/18/16 05/18/16 Range/Units 04:45 04:45 07:42 Hgb 12.6 L (13.0-17.5) gm/dL Lymphocytes # (Manual) 0.5 L (1.0-4.8) k/uL Sodium 149 H (137-145) mmol/L Carbon Dioxide 38 H (22-30) mmol/L BUN 26 H (9-20) mg/dL Creatinine 0.64 L (0.66-1.25) mg/dL Glucose 158 H (74-99) mg/dL POC Glucose (mg/dL) 129 H (75-99) mg/dL Calcium 8.3 L (8.4-10.2) mg/dL Phosphorus 2.4 L (2.5-4.5) mg/dL Magnesium 2.9 H (1.6-2.3) mg/dL 05/18/16 Range/Units 08:10 Hgb (13.0-17.5) gm/dL Lymphocytes # (Manual) (1.0-4.8) k/uL Sodium (137-145) mmol/L Carbon Dioxide (22-30) mmol/L BUN (9-20) mg/dL Creatinine (0.66-1.25) mg/dL Glucose (74-99) mg/dL POC Glucose (mg/dL) 138 H (75-99) mg/dL Calcium (8.4-10.2) mg/dL Phosphorus (2.5-4.5) mg/dL Magnesium (1.6-2.3) mg/dL Microbiology - Last 24 Hours (Table) 05/14/16 20:33 Blood Culture - Preliminary Blood No Growth after 72 hours 05/14/16 20:09 Blood Culture - Preliminary Blood No Growth after 72 hours Assessment and Plan (1) COPD (chronic obstructive pulmonary disease) Status: Acute (2) Pneumonia Status: Acute Plan: Plan Medications are reviewed. We'll make sure that he is on appropriate medications including DuoNeb and performance with Pulmicort. Also he should be on antibiotics either ceftriaxone and azithromycin or another appropriate combination for community-acquired pneumonia. He is not Particularly Bronchospastic so Steroids Are Not Indicated. We'll Continue to Follow. Follow -Up Chest X-Ray Should Be on a Day or so. Plan dated 05/16/2016 Medications are reviewed. Additional recommendations suggestions are forthcoming. Later today. Remained stable we consented back out to the floor. No additional recommendations are made. We'll continue to follow. We'll review the x-rays labs and medications. Prognosis is guarded. Plan dated 05/17/2016 The patient will have a neurology consult and and also an EEG. He may benefit from a lumbar puncture. A CT of the brain was not really diagnostic. The patient's mental status has declined. I'm not sure whether it's drug-related or encephalopathic. It could be infectious as well. Anyway neurology will help sort that out. We'll continue on current medications. Labs x-rays medications are all reviewed. We'll hold all sedatives hypnotics narcotics tranquilizers so that he doesn't confuse the picture. Plan dated 05/18/2016 The patient will have a possible lumbar puncture today. We asked for an EEG as well. MRI was not too remarkable. CT was negative. I'm considering posterior reversible encephalopathy syndrome is one possibility. Other than that the patient seemed to be a bit more stable and a bit more awake and alert. Chest x- rays improved. His hemodynamic status is stable. We'll continue to follow closely. Time with Patient: Less than 30
[2016-05-18] MEDS: MULTIVITAMINS, THERA 1 EACH TAB PO SCH (14:05)
[2016-05-18 14:09] LABS: Glucose,Whole Blood 135 mg/dL (75-99)
--- NOTE | 2016-05-18 14:19 | P.CONS ---
History of Present Illness - Reason for Consult Consult date: 05/17/16 Altered mental status - History of Present Illness This 50-year-old male being evaluated by the neurology service for worsening mental status. He was transferred from [facility] on May 14, where he was being treated for pneumonia and altered mental status. She has a history of mental delay and has a caregiver. She was initially admitted to an observation floor where he was pulling off his oxygen and is saturations became low he was then brought up to the ICU on the . He became very agitated and confused and his mental status declined significantly. An initial CT of the brain was done, and showed no acute intracranial abnormalities and a CTA was also done that showed no significant abnormalities, although there was significant movement artifact. His mental status is due to continued to decline. Or nursing staff says that he is no longer responding to commands. He is being treated with broad-spectrum antibiotics for pneumonia. Review of Systems All systems: negative Past Medical History Past Medical History: Hypertension Additional Past Medical History / Comment(s): developmentally delayed History of Any Multi-Drug Resistant Organisms: None Reported Past Surgical History: Hernia Repair Additional Past Surgical History / Comment(s): breast reconstructive surgery, hernia surgery x4 Past Anesthesia/Blood Transfusion Reactions: No Reported Reaction Past Psychological History: No Psychological Hx Reported Smoking Status: Former smoker Medications and Allergies Home Medications Medication Instructions Recorded Confirmed Type Cetirizine HCl [Zyrtec] 10 mg PO DAILY 05/14/16 05/14/16 History Cholecalciferol [Vitamin D3] 2,000 unit PO BID 05/14/16 05/14/16 History Gemfibrozil [Lopid] 600 mg PO BID 05/14/16 05/14/16 History Multivitamins, Thera [Multivitamin] 1 tab PO DAILY 05/14/16 05/14/16 History Propranolol [Inderal] 40 mg PO BID 05/14/16 05/14/16 History QUEtiapine FUMARATE [SEROquel] 400 mg PO HS 05/14/16 05/14/16 History Ranitidine HCl [Zantac] 150 mg PO BID 05/14/16 05/14/16 History Terazosin [Hytrin] 5 mg PO HS 05/14/16 05/14/16 History clonazePAM [KlonoPIN] 1 mg PO TID@0900,1600,199905/14/16 05/14/16 History Allergies Allergy/AdvReac Type Severity Reaction Status Date / Time No Known Allergies Allergy Verified 05/14/16 15:43 Physical Exam Vitals: Vital Signs Temp Pulse Pulse Resp BP Pulse Ox 05/17/16 13:00 75 15 104/61 95 05/17/16 12:00 75 86 15 146/72 96 05/17/16 11:06 77 05/17/16 11:00 85 18 94 L 05/17/16 10:49 68 05/17/16 10:00 98.2 F 100 19 144/73 93 L 05/17/16 09:00 83 144/73 92 L 05/17/16 08:00 99.9 F H 82 86 20 146/80 95 05/17/16 07:55 80 05/17/16 07:36 80 05/17/16 07:28 81 05/17/16 07:00 85 20 127/63 98 05/17/16 06:00 93 18 136/71 89 L 05/17/16 05:00 89 14 104/65 96 05/17/16 04:00 99.4 F 82 86 18 135/70 92 L 05/17/16 03:34 16 91 L 05/17/16 01:00 79 24 106/49 93 L 05/17/16 00:00 97.0 F L 82 16 112/53 94 L 05/16/16 23:13 78 19 123/67 93 L 05/16/16 23:00 81 20 123/67 94 L 05/16/16 22:00 73 24 120/60 92 L 05/16/16 21:00 74 15 130/66 93 L 05/16/16 20:00 98.3 F 79 20 98/53 93 L 05/16/16 19:39 69 05/16/16 19:30 69 18 111/50 95 05/16/16 19:29 69 05/16/16 19:23 67 05/16/16 19:00 67 17 107/62 95 05/16/16 18:30 75 22 119/53 75 L 05/16/16 18:00 28 H 125/66 90 L 05/16/16 17:30 76 29 H 119/66 92 L 05/16/16 17:00 73 23 126/63 93 L 05/16/16 16:30 72 20 124/67 93 L 05/16/16 16:00 72 86 43 H 118/62 94 L 05/16/16 15:31 73 05/16/16 15:30 73 35 H 113/49 92 L 05/16/16 15:21 71 05/16/16 15:00 69 33 H 118/66 95 05/16/16 14:30 68 107/54 87 L Intake and Output 05/16/16 05/17/16 05/17/16 22:59 06:59 14:59 Intake Total 300 160 140 Output Total 735 805 450 Balance -435 -645 -310 Intake: IV 200 160 140 0.9 200 160 140 Intake, IV Titration 100 Amount Levofloxacin 750Mg-D5w 100 Pmx 750 mg In Dextrose/ Water 1 150ml.bag @ 100 mls/hr IVPB Q24H [facility] Rx#: [id number] Output: Urine 735 805 450 Other: Voiding Method Indwelling Catheter Indwelling Catheter Indwelling Catheter # Bowel Movements 1 Weight 86.4 kg - Constitutional General appearance: average body habitus - EENT Eyes: no abnormal pupil, PERRLA, no ptosis - Neck Neck: rigidity - Respiratory Respiratory: negative: prolonged expiration, prolonged inspiration - Cardiovascular Rhythm: regular - Gastrointestinal General gastrointestinal: no distended, no tenderness - Neurologic The patient is lying still in bed and seems in no acute distress. He does not respond to commands. He does withdraw from painful stimuli. Plantar reflexes downgoing. No lateralizing weakness is appreciated. There is a possible mild right facial droop, although nursing staff is unsure if this is his baseline or not. Upon manipulation of the head and neck, he does wince a bit with palpation of the posterior cervical area and there is some nuchal rigidity. Results CBC & Chem 7: 05/17/16 04:33 05/17/16 04:33 Labs: Abnormal Lab Results - Last 24 Hours (Table) 05/17/16 05/17/16 05/17/16 Range/Units 01:36 04:33 04:33 Plt Count 131 L (150-450) k/uL Lymphocytes # (Manual) 0.9 L (1.0-4.8) k/uL ABG pCO2 (35-45) mmHg ABG pO2 (83-108) mmHg ABG HCO3 (21-25) mmol/L ABG Total CO2 (19-24) mmol/L ABG O2 Saturation (94-97) % Carbon Dioxide 35 H (22-30) mmol/L BUN 21 H (9-20) mg/dL Glucose 146 H (74-99) mg/dL POC Glucose (mg/dL) 138 H (75-99) mg/dL Calcium 7.9 L (8.4-10.2) mg/dL Magnesium 2.8 H (1.6-2.3) mg/dL 05/17/16 05/17/16 05/17/16 Range/Units 08:05 08:23 12:16 Plt Count (150-450) k/uL Lymphocytes # (Manual) (1.0-4.8) k/uL ABG pCO2 62 H (35-45) mmHg ABG pO2 69 L (83-108) mmHg ABG HCO3 36 H (21-25) mmol/L ABG Total CO2 38 H (19-24) mmol/L ABG O2 Saturation 92.0 L (94-97) % Carbon Dioxide (22-30) mmol/L BUN (9-20) mg/dL Glucose (74-99) mg/dL POC Glucose (mg/dL) 165 H 149 H (75-99) mg/dL Calcium (8.4-10.2) mg/dL Magnesium (1.6-2.3) mg/dL Microbiology - Last 24 Hours (Table) 05/14/16 20:33 Blood Culture - Preliminary Blood No Growth after 48 hours 05/14/16 20:09 Blood Culture - Preliminary Blood No Growth after 48 hours 05/15/16 20:00 Urine Culture - Final Urine,Catheterized Assessment and Plan (1) Nuchal rigidity Status: Acute (2) Unresponsiveness Status: Chronic (3) Acute encephalopathy Status: Acute (4) Mental deficiency Status: Chronic (5) Pneumonia Status: Acute Plan: 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 Mention was made of ordering lumbar puncture with CSF studies. We do recommend proceeding with this to rule out meningitis. Continue respiratory support as needed continue neurological checks. Continue treatment for his infectious process. His prognosis is guarded. We will continue to follow and make further recommendations based on the above studies. I have performed a history and physical on the above patient. I have reviewed the above note, and agree.
--- NOTE | 2016-05-18 14:30 | P.PN ---
Subjective Principal diagnosis: Altered mental status This 50-year-old male being evaluated by the neurology service for worsening mental status. He was transferred from [facility] on May 14, where he was being treated for pneumonia and altered mental status. He has a history of mental delay and has a caregiver. He was initially admitted to an observation floor where he was pulling off his oxygen and his saturations became low. He was then brought up to the ICU on the . He became very agitated and confused and his mental status declined significantly. An initial CT of the brain was done, and showed no acute intracranial abnormalities and a CTA was also done that showed no significant abnormalities, although there was significant movement artifact. His mental status continued to decline, the lumbar puncture was ordered to rule out meningitis. In the last 24 hours his mental status is significantly better, and possibly close to baseline. He has been afebrile with a normal white count at last check. He is being treated with antibiotics for pneumonia. At the time of my exam he is laying on his right side in bed slightly agitated, and in no acute distress. Objective - Vital Signs Vital signs: Vital Signs Temp 97.5 F L 05/18/16 12:00 Pulse 62 05/18/16 14:00 Resp 26 H 05/18/16 14:00 BP 140/78 05/18/16 14:00 Pulse Ox 92 L 05/18/16 14:00 Intake & Output 05/17/16 05/18/16 05/18/16 18:59 06:59 18:59 Intake Total 240 340 520 Output Total 825 865 515 Balance -585 -525 5 Weight 84.6 kg Intake: IV 240 240 520 0.9 240 240 520 Intake, IV Titration 100 Amount ACETAMINOPHEN IV (For NPO 100 ) 1,000 mg In Empty Bag 1 bag @ 400 mls/hr IVPB Q6HR [facility] Rx#:[id number] Output: Urine 825 865 515 Other: Voiding Method Indwelling Catheter Indwelling Catheter Indwelling Catheter # Voids 2 - Constitutional General appearance: Present: average body habitus, no acute distress. Absent: cooperative - EENT Eyes: Present: EOMI, PERRLA. Absent: abnormal pupil, ptosis - Neck Neck: Present: normal ROM. Absent: rigidity - Respiratory Respiratory: negative: prolonged expiration, prolonged inspiration - Cardiovascular Rhythm: regular - Gastrointestinal General gastrointestinal: Absent: distended, tenderness - Neurologic Neurologic Comment(s): Patient is awake and will respond to simple commands intermittently. He will look when his name is called. He is agitated somewhat but overall in no acute distress. There is no lateralizing weakness seen no response to painful stimuli. Plantar reflex downgoing. - Labs CBC & Chem 7: 05/18/16 04:45 05/18/16 04:45 Labs: Abnormal Lab Results - Last 24 Hours (Table) 05/17/16 05/17/16 05/18/16 Range/Units 17:27 22:15 04:45 Hgb 12.6 L (13.0-17.5) gm/dL Lymphocytes # (Manual) 0.5 L (1.0-4.8) k/uL Sodium (137-145) mmol/L Carbon Dioxide (22-30) mmol/L BUN (9-20) mg/dL Creatinine (0.66-1.25) mg/dL Glucose (74-99) mg/dL POC Glucose (mg/dL) 138 H 130 H (75-99) mg/dL Calcium (8.4-10.2) mg/dL Phosphorus (2.5-4.5) mg/dL Magnesium (1.6-2.3) mg/dL 05/18/16 05/18/16 05/18/16 Range/Units 04:45 07:42 08:10 Hgb (13.0-17.5) gm/dL Lymphocytes # (Manual) (1.0-4.8) k/uL Sodium 149 H (137-145) mmol/L Carbon Dioxide 38 H (22-30) mmol/L BUN 26 H (9-20) mg/dL Creatinine 0.64 L (0.66-1.25) mg/dL Glucose 158 H (74-99) mg/dL POC Glucose (mg/dL) 129 H 138 H (75-99) mg/dL Calcium 8.3 L (8.4-10.2) mg/dL Phosphorus 2.4 L (2.5-4.5) mg/dL Magnesium 2.9 H (1.6-2.3) mg/dL 05/18/16 Range/Units 14:08 Hgb (13.0-17.5) gm/dL Lymphocytes # (Manual) (1.0-4.8) k/uL Sodium (137-145) mmol/L Carbon Dioxide (22-30) mmol/L BUN (9-20) mg/dL Creatinine (0.66-1.25) mg/dL Glucose (74-99) mg/dL POC Glucose (mg/dL) 135 H (75-99) mg/dL Calcium (8.4-10.2) mg/dL Phosphorus (2.5-4.5) mg/dL Magnesium (1.6-2.3) mg/dL Microbiology - Last 24 Hours (Table) 05/14/16 20:33 Blood Culture - Preliminary Blood No Growth after 72 hours 05/14/16 20:09 Blood Culture - Preliminary Blood No Growth after 72 hours Assessment and Plan (1) Nuchal rigidity Status: Resolved (2) Unresponsiveness Status: Chronic (3) Acute encephalopathy Status: Acute (4) Mental deficiency Status: Chronic (5) Pneumonia Status: Acute Plan: Given his significant improvement over the past 24 hours, and normal MRI of the brain , I will discontinue the order for lumbar puncture with CSF studies for now. An EEG has been ordered. Continue respiratory support as needed, and continue neurological checks. Continue treatment for his infectious process. His prognosis is guarded. We will continue to follow and make further recommendations based on the above studies. Suspecting acute encephalopathy due to his infection and other metabolic factors. We will continue to follow. I have performed a history and physical on the above patient. I have reviewed the above note, and agree.
[2016-05-18] MEDS ORDERED: LEVOFLOXACIN 750 MG TAB PO SCH (17:00)
[2016-05-18] MEDS: LEVOFLOXACIN 750MG-D5W PMX 750 MG in DEXTROSE/WATER 1 150ML.BAG IVPB SCH (19:03)
[2016-05-18] MEDS: DEXTROSE 5% IN WATER 1,000 ML IV SCH (19:05)
[2016-05-18 19:06] LABS: Glucose,Whole Blood 147 mg/dL (75-99)
--- NOTE | 2016-05-18 19:09 | PN ---
DATE OF SERVICE: 05/18/2016 This 50-year-old gentleman was admitted with COPD acute exacerbation as well as possible pneumonia and acute hypoxic hypercarbic respiratory failure, also change in mental status also. The patient was more yesterday. Today, the patient is much more alert and restless per staff. Currently, the patient is slightly more sedated. A brain MRI was done per Neurology. Recommendations showed no acute lesions. A chest x-ray was also done, which showed similar findings. Patient will be closely monitored in the ICU. Dr. Hoang is following the patient closely. PAST MEDICAL HISTORY: Reviewed. REVIEW OF SYSTEMS: Could not be taken, the patient is . Medications are reviewed and include: 1. Tylenol 500 mg q.6 p.r.n. 2. DuoNeb q.i.d. and p.r.n. 3. Vitamin D3 two thousand b.i.d. 4. Lovenox 40 mg subQ daily. 5. Pepcid 20 mg b.i.d. 6. Lopid 600 mg p.o. b.i.d. 7. Humalog scale a.c. and at bedtime. 8. Levaquin 750 mg p.o. daily. 9. Replacement protocol. 10. Multivitamin 1 p.o. daily. 11. Narcan 0.2 q.2 p.r.n. 12. Zofran. 13. Intolerance of regular Seroquel. 14. Sodium chloride. 15. Hytrin 5 mg p.o. q.h.s. PHYSICAL EXAMINATION: Patient is stuporous. Pulse is 96, blood pressure 140/78, respiration 30, temperatures is 97.4, pulse ox 94% on 2 L nasal cannula. HEENT: Conjunctivae normal, oral mucosal moist. NECK: No jugular venous distention. No carotid bruit, no lymph node enlargement. CARDIOVASCULAR SYSTEM: S1, S2, muffled. No S3, no S4. LUNGS: Breath sounds diminished at the bases, bilateral scattered rhonchi, no crackles. ABDOMEN: Soft, nontender. No mass palpable. EXTREMITIES: Legs no edema, no swelling. NERVOUS SYSTEM: Higher functions as mentioned earlier, moves all 4 limbs. No focal motor or sensory deficits. LYMPHATICS: No lymph node enlargement in the neck, axillae or groin. SKIN: No ulcer, rash, bleeding. LABS: WBC is 4, hemoglobin is 12.6. Sodium is 149. Accu-Cheks are noted. ASSESSMENT: 1. Chronic obstructive pulmonary disease acute exacerbation, with acute bibasilar pneumonia, possibly gram-negative with acute hypoxic hypercarbic respiratory failure, status post BiPAP with change in mental status, metabolic encephalopathy, multifactorial. 2. Acute respiratory acidosis and noncompliance with treatment. 3. Thrombocytopenia, mild, undetermined etiology. 4. Hypernatremia. 5. History of hypertension. 6. History of developmental delay. 7. History of hernia surgery. 8. Remote history nicotine dependence. 9. Gait dysfunction. 10. Elevated right hemidiaphragm. 11. FULL CODE. RECOMMENDATION: In this 50-year-old gentleman who presented with multiple complex medical issues, will monitor the patient closely. Continue with the current medication and symptomatic treatment. Otherwise, at this time, continue the bronchodilators, empiric antibiotics, continue the rest of the medications. Otherwise, I would also recommend a psychiatry consultation as well. See orders for further details. I would recommend repeat labs in the morning and continue to monitor. Guarded prognosis. Further recommendations to follow. MTDD
[2016-05-18 21:44] LABS: Glucose,Whole Blood 121 mg/dL (75-99)
[2016-05-18] MEDS: TERAZOSIN 5 MG CAP PO SCH (21:44)
[2016-05-18] MEDS: QUEtiapine 400 MG TAB PO SCH (21:44)
[2016-05-18] MEDS: FAMOTIDINE 20 MG TAB PO SCH (21:44)
[2016-05-19 05:04] LABS: Basophils % (A) 1 %; CH 29.1; CHCM 31.4; Eosinophils % (A) 0 %; HCT 40.4 % (39.0-53.0); HDW 2.68; HGB 12.6 gm/dL (13.0-17.5); Hypochromasia Slight; Luc # (Auto) 0.17; Luc % (Auto) 4; Lymphocytes # (A) 0.7 k/uL (1.0-4.8); Lymphocytes % (A) 15 %; MCHC 31.2 g/dL (31.0-37.0); MCV 92.9 fL (80.0-100.0); Mean Platelet Volume 8.9; Monocytes # (A) 0.5 k/uL (0-1.0); Monocytes % (A) 10 %; Neutrophils # (A) 3.4 k/uL (1.3-7.7); Neutrophils % (A) 72 %; RBC 4.35 m/uL (4.30-5.90); RDW 13.7 % (11.5-15.5); WBC 4.8 k/uL (3.8-10.6); WBC (Perox) 4.92
[2016-05-19 05:12] LABS: Anion Gap 11 mmol/L; Blood Urea Nitrogen 19 mg/dL (9-20); Calcium 8.3 mg/dL (8.4-10.2); Carbon Dioxide 38 mmol/L (22-30); Chloride 98 mmol/L (98-107); Glucose 144 mg/dL (74-99); Magnesium 2.4 mg/dL (1.6-2.3); Non-African American GFR(MDRD) >60 (>60 ml/min/1.73 sqM); Phosphorous 2.8 mg/dL (2.5-4.5); Potassium 3.7 mmol/L (3.5-5.1); Sodium 147 mmol/L (137-145)
[2016-05-19] MEDS ORDERED: Potassium Replacement Protocol 1 EACH MISC MISCELLANE PRN (05:58)
[2016-05-19] MEDS: POTASSIUM CHLORIDE 10 MEQ, LIDOCAINE 2% INJ 10 MG in SODIUM CHLORIDE 0.9% 100 ML IV SCH ×2 (06:23→12:53)
[2016-05-19] MEDS: DEXTROSE 5% IN WATER 1,000 ML IV SCH ×2 (06:23→19:50)
[2016-05-19] MEDS: IPRATROPIUM-ALBUTEROL 3 ML NEB INHALATION SCH ×5 (08:10→20:31)
[2016-05-19] MEDS: GEMFIBROZIL 600 MG TAB PO SCH ×2 (08:30→18:19)
[2016-05-19] MEDS: CHOLECALCIFEROL 1,000 UNIT TAB PO SCH ×2 (08:31→21:39)
[2016-05-19] MEDS: ENOXAPARIN 40 MG/0.4 ML SYRINGE SQ SCH (08:32)
[2016-05-19] MEDS: PROPRANOLOL 40 MG TAB PO SCH ×2 (08:33→21:39)
[2016-05-19] MEDS: FAMOTIDINE 20 MG TAB PO SCH ×2 (08:33→21:39)
[2016-05-19] MEDS: INSULIN LISPRO (humaLOG) 300 UNIT/3 ML VIAL SQ SCH ×4 (08:35→20:30)
[2016-05-19 08:37] LABS: Glucose,Whole Blood 128 mg/dL (75-99)
[2016-05-19 12:03] LABS: Glucose,Whole Blood 122 mg/dL (75-99)
[2016-05-19] MEDS: MULTIVITAMINS, THERA 1 EACH TAB PO SCH (12:49)
[2016-05-19] MEDS: PIPERACILLIN-TAZOBACTAM 3.375 GM in DEXTROSE/WATER 1 50ML.BAG IVPB SCH ×2 (12:52→20:33)
[2016-05-19] MEDS: LORazepam 2 MG/ML SYRINGE IV SCH ×2 (15:25→23:20)
--- NOTE | 2016-05-19 16:51 | P.PN ---
Subjective Principal diagnosis: Altered mental status This 50-year-old male continues to be evaluated by the neurology service for worsening mental status. He was transferred from [facility] on May 14, where he was being treated for pneumonia and altered mental status. He has a history of mental delay and has a caregiver. He was initially admitted to an observation floor where he was pulling off his oxygen and his saturations became low. He was then brought up to the ICU on the . He became very agitated and confused and his mental status declined significantly. An initial CT of the brain was done, and showed no acute intracranial abnormalities and a CTA was also done that showed no significant abnormalities, although there was significant movement artifact. His mental status continued to decline. In the last 24 hours his mental status is slightly better, but after talking with his caregiver is not back to baseline. He has been afebrile with a normal white count at last check. He is being treated with antibiotics for pneumonia. At the time of my exam he is lying in bed and in no acute distress. An EEG was performed and showed mild encephalopathy and some rare sharp waves. He is on no antiepileptic medication either here or at home. Objective - Vital Signs Vital signs: Vital Signs Temp 97.8 F 05/19/16 16:00 Pulse 68 05/19/16 16:00 Resp 23 05/19/16 16:00 BP 153/82 05/19/16 16:00 Pulse Ox 99 05/19/16 16:00 Intake & Output 05/18/16 05/19/16 05/19/16 18:59 06:59 18:59 Intake Total 920 1300 1150 Output Total 770 723 448 Balance 150 577 702 Weight 84.6 kg 83.7 kg Intake: IV 920 1300 900 0.9 920 Dextrose 5% in Water 1, 1300 900 000 ml @ 100 mls/hr IV . Q10H [facility] Rx#:[id number] Intake, IV Titration 250 Amount Piperacillin-Tazobactam 3 50 .375 gm In Dextrose/Water 1 50ml.bag @ 12.5 mls/hr IVPB Q8H [facility] Rx#: [id number] Potassium Chloride 10 meq 200 Lidocaine 2% Inj 10 mg In Sodium Chloride 0.9% 100 ml @ 100 mls/hr IV Q1HR [facility] Rx#:[id number] Output: Urine 770 723 448 Other: Voiding Method Indwelling Catheter Indwelling Catheter Indwelling Catheter # Voids 2 2 - Constitutional General appearance: Present: average body habitus - EENT Eyes: Present: PERRLA. Absent: abnormal pupil, ptosis - Neck Neck: Present: normal ROM. Absent: rigidity - Respiratory Respiratory: negative: prolonged expiration, prolonged inspiration - Cardiovascular Rhythm: regular - Gastrointestinal General gastrointestinal: Absent: distended, tenderness - Neurologic Neurologic Comment(s): Patient is awake. He will look when his name is called but is not following even simple commands. He has purposeful movements of his upper and lower extremities. When wanting to move his leg he did reach down to reposition his catheter and collection bag. Nursing staff do indicate he is spoken a couple words, but usually simple yes no to direct questions. There is no lateralizing weakness seen. There is no tremor or seizure-like activity seen. There is possibility of a mild right mouth droop. This is been present since admission and his CT and MRIs have been normal. Plantar reflexes downgoing. - Labs CBC & Chem 7: 05/19/16 04:39 05/19/16 04:39 Labs: Abnormal Lab Results - Last 24 Hours (Table) 05/18/16 05/18/16 05/19/16 Range/Units 19:04 21:42 04:39 Hgb 12.6 L (13.0-17.5) gm/dL Lymphocytes # 0.7 L (1.0-4.8) k/uL Sodium (137-145) mmol/L Carbon Dioxide (22-30) mmol/L Glucose (74-99) mg/dL POC Glucose (mg/dL) 147 H 121 H (75-99) mg/dL Calcium (8.4-10.2) mg/dL Magnesium (1.6-2.3) mg/dL 05/19/16 05/19/16 05/19/16 Range/Units 04:39 08:35 12:02 Hgb (13.0-17.5) gm/dL Lymphocytes # (1.0-4.8) k/uL Sodium 147 H (137-145) mmol/L Carbon Dioxide 38 H (22-30) mmol/L Glucose 144 H (74-99) mg/dL POC Glucose (mg/dL) 128 H 122 H (75-99) mg/dL Calcium 8.3 L (8.4-10.2) mg/dL Magnesium 2.4 H (1.6-2.3) mg/dL Microbiology - Last 24 Hours (Table) 05/14/16 20:33 Blood Culture - Preliminary Blood No Growth after 96 hours 05/14/16 20:09 Blood Culture - Preliminary Blood No Growth after 96 hours Assessment and Plan (1) Unresponsiveness Status: Chronic (2) Acute encephalopathy Status: Acute (3) Mental deficiency Status: Chronic (4) Pneumonia Status: Acute Plan: He is likely experiencing encephalopathy from his respiratory infection. Given his significant improvement and normal MRI of the brain , I did discontinue the order for lumbar puncture with CSF studies. Continue respiratory support as needed, and continue neurological checks. Continue treatment for his infectious process. His prognosis is guarded. If this neurological condition does not improve with resolution of his respiratory infection a repeat CT could be accomplished. We will continue to follow. I have performed a history and physical on the above patient. I have reviewed the above note, and agree.
[2016-05-19 17:15] LABS: Glucose,Whole Blood 120 mg/dL (75-99)
--- NOTE | 2016-05-19 18:03 | P.PN ---
Subjective This 50-year-old male continues to be evaluated by the neurology service for worsening mental status. He was transferred from [facility] on May 14, where he was being treated for pneumonia and altered mental status. He has a history of mental delay and has a caregiver. He was initially admitted to an observation floor where he was pulling off his oxygen and his saturations became low. He was then brought up to the ICU on the . He became very agitated and confused and his mental status declined significantly. An initial CT of the brain was done, and showed no acute intracranial abnormalities and a CTA was also done that showed no significant abnormalities, although there was significant movement artifact. His mental status continued to decline. In the last 24 hours his mental status is slightly better, but after talking with his caregiver is not back to baseline. He has been afebrile with a normal white count at last check. He is being treated with antibiotics for pneumonia. At the time of my exam he is lying in bed and in no acute distress. An EEG was performed and showed mild encephalopathy and some rare sharp waves. On 05/19/2016 the patient is being seen in follow-up in the intensive care unit. The patient has no significant rest or distress. 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 His mentation is not recovered yet. He is not fully comprehending although he was able to answer some short questions. He refused to take his oral antibiotics. I stressed this patient to a combination of IV Levaquin and IV Zosyn in regards to potential aspiration pneumonia. No fever. No chills. Hemodynamically stable. He is on Lovenox for DVT prophylaxis. Neurology is following up the case and there is no indication for any acute DETECTIVE SERGEANT infection or an acute stroke and his EKG showing some mild encephalopathy. Objective - Vital Signs Vital signs: Vital Signs Temp 97.8 F 05/19/16 16:00 Pulse 84 05/19/16 17:00 Resp 20 05/19/16 17:00 BP 151/77 05/19/16 17:00 Pulse Ox 95 05/19/16 17:00 Intake & Output 05/18/16 05/19/16 05/19/16 18:59 06:59 18:59 Intake Total 920 1300 1250 Output Total 770 723 478 Balance 150 577 772 Weight 84.6 kg 83.7 kg Intake: IV 920 1300 1000 0.9 920 Dextrose 5% in Water 1, 1300 1000 000 ml @ 100 mls/hr IV . Q10H [facility]I Rx#:[id number] Intake, IV Titration 250 Amount Piperacillin-Tazobactam 3 50 .375 gm In Dextrose/Water 1 50ml.bag @ 12.5 mls/hr IVPB Q8H [facility]STI Rx#: [id number] Potassium Chloride 10 meq 200 Lidocaine 2% Inj 10 mg In Sodium Chloride 0.9% 100 ml @ 100 mls/hr IV Q1HR K[facility]STI Rx#:[id number] Output: Urine 770 723 478 Other: Voiding Method Indwelling Catheter Indwelling Catheter Indwelling Catheter # Voids 2 2 - Exam Head exam was generally normal. There was no scleral icterus or corneal arcus. Mucous membranes were moist.Neck was supple and without jugular venous distension, thyromegaly, or carotid bruits. Carotids were easily palpable bilaterally. There was no adenopathy. Lung sounds are diminished on the right compared to the left along with some few bibasilar crackles.Cardiac exam revealed the PMI to be normally situated and sized. The rhythm was regular and no extrasystoles were noted during several minutes of auscultation. The first and second heart sounds were normal and physiologic splitting of the second heart sound was noted. There were no murmurs, rubs, clicks, or gallops.Abdominal exam revealed normal bowel sounds. The abdomen was soft, non- tender, and without masses, organomegaly, or appreciable enlargement of the abdominal aorta.Examination of the extremities revealed easily palpable radial, femoral and pedal pulses. There was no cyanosis, clubbing or edema. - Labs CBC & Chem 7: 05/19/16 04:39 05/19/16 04:39 Labs: Abnormal Lab Results - Last 24 Hours (Table) 05/18/16 05/18/16 05/19/16 Range/Units 19:04 21:42 04:39 Hgb 12.6 L (13.0-17.5) gm/dL Lymphocytes # 0.7 L (1.0-4.8) k/uL Sodium (137-145) mmol/L Carbon Dioxide (22-30) mmol/L Glucose (74-99) mg/dL POC Glucose (mg/dL) 147 H 121 H (75-99) mg/dL Calcium (8.4-10.2) mg/dL Magnesium (1.6-2.3) mg/dL 05/19/16 05/19/16 05/19/16 Range/Units 04:39 08:35 12:02 Hgb (13.0-17.5) gm/dL Lymphocytes # (1.0-4.8) k/uL Sodium 147 H (137-145) mmol/L Carbon Dioxide 38 H (22-30) mmol/L Glucose 144 H (74-99) mg/dL POC Glucose (mg/dL) 128 H 122 H (75-99) mg/dL Calcium 8.3 L (8.4-10.2) mg/dL Magnesium 2.4 H (1.6-2.3) mg/dL 05/19/16 Range/Units 17:13 Hgb (13.0-17.5) gm/dL Lymphocytes # (1.0-4.8) k/uL Sodium (137-145) mmol/L Carbon Dioxide (22-30) mmol/L Glucose (74-99) mg/dL POC Glucose (mg/dL) 120 H (75-99) mg/dL Calcium (8.4-10.2) mg/dL Magnesium (1.6-2.3) mg/dL Microbiology - Last 24 Hours (Table) 05/14/16 20:33 Blood Culture - Preliminary Blood No Growth after 96 hours 05/14/16 20:09 Blood Culture - Preliminary Blood No Growth after 96 hours Assessment and Plan Plan: Assessment 1 acute bilateral pneumonia with limited bibasilar pulmonary infiltrate and chronic elevation of the right hemidiaphragm 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 2 hypoxic respiratory failure, stable. 3 altered mental status, related to sepsis/metabolic encephalopathy. Workup has been completed including a normal MRI and some mild encephalopathy on the EEG without evidence of seizure activity. The patient was not found to be needing a lumbar puncture per neurology. 4 developmental delay/mental retardation 5 previous history of right breast reconstruction surgery Plan We'll put the patient IV antibiotics including a combination of IV Zosyn and Levaquin. Monitor the patient's history status. Monitor the patient's neurological status. The patient was placed on Seroquel high dose which is with used to take at home. Clonazepam was replaced with Ativan here in the hospital. Aspiration precautions. We'll continue to follow make further recommendations based on his progress.
[2016-05-19] MEDS: LEVOFLOXACIN 750MG-D5W PMX 750 MG in DEXTROSE/WATER 1 150ML.BAG IVPB SCH (19:05)
--- NOTE | 2016-05-19 20:13 | CONS ---
DATE OF CONSULTATION: REASON FOR CONSULTATION: Altered mental status condition. As the patient is very confused very restless in his bed and he could not answer any question. I did review all his records since this admission in addition, I did review records from previous admission to our mental health unit. HISTORY OF PRESENT ILLNESS: Patient is a 50 year old male who is developmentally disabled and was admitted with chief complaint of altered mental status and possibly pneumonia. Patient has a caregiver. Initially patient was admitted to the observation floor; however, he was pulling off his oxygen and his saturation was getting low. So he was transferred to the ICU on May 15. Patient became very agitated and confused and he did start refusing most of his oral medication since May 17. According to the record, his mental status has been declining since then. Neurology saw the patient on May [address] of the brain was done and does not show any acute intracranial hemorrhage and currently patient has been treated for pneumonia, and the chest x-ray shows he has acute bibasilar pneumonia, possibly gram-negative with acute hypoxic hypercarbic respiratory failure. His home medication was: 1. Klonopin 1 mg 1-3 times a day and he has been on Klonopin for more than one year. 2. Seroquel 400 mg at bedtime. 3. Zyrtec 10 mg daily. 4. Vitamin D3 2000 units twice a day. 5. Multivitamin. 6. Inderal 40 twice a day. 7. Hytrin 5 milligrams at bedtime. 8. Lopid 600 twice a day. 'Allergies. There no known allergy. Regarding his past psychiatric, patient had at least between 3 to 4 previous admission on the mental health unit. His last admission was in April 2012. Each time he was admitted for homicidal ideation. His previous diagnosis states schizoaffective disorder bipolar type with developmental disable and behavior disorder. He tried different psychotropic medication including Celexa, Risperdal, Lamictal, even he was on Depakote for behavior problem. Drug and alcohol history from the record: He denied any. Brief social history: Patient is developmentally disabled and he never had been and no children and he has been living in prison or with caregiver and he has a guardian. IMPRESSION: 1. Patient has multifactorial encephalopathy or delirious reaction. 2. Sedative hypnotic withdrawal symptoms. 3. Pneumonia. 4. Respiratory acidosis. PLAN: Please treat underlying reason for pneumonia and hypoplastic hypercarbia respiratory failure. I will start him on low dose of Ativan 0.5 IV 3 times a day and I will monitor his vital signs as his blood pressure currently is 163/98 with pulse 84. I will continue to follow up with you. I will not start him on any Seroquel for now until he will be more alert. Regarding benzodiazepine withdrawal. We will need to monitor vital signs every couple of hours, monitor any psychomotor agitation or seizure disorder and seizure problem, patient might experiencing some visual or tactile hallucinations with withdrawal; However, covering him with Ativan it will help him to get over this delirious reaction from benzodiazepine withdrawal. For now, I will continue to follow up as long as he is on the medical floor. Prognosis guarded.
[2016-05-19 20:29] LABS: Glucose,Whole Blood 120 mg/dL (75-99)
[2016-05-19] MEDS: TERAZOSIN 5 MG CAP PO SCH (21:39)
[2016-05-19] MEDS: QUEtiapine 400 MG TAB PO SCH (21:39)
[2016-05-20] MEDS: DEXTROSE 5% IN WATER 1,000 ML IV SCH ×3 (00:29→20:07)
[2016-05-20] MEDS: PIPERACILLIN-TAZOBACTAM 3.375 GM in DEXTROSE/WATER 1 50ML.BAG IVPB SCH ×3 (04:21→20:15)
[2016-05-20 05:03] LABS: Basophils % (A) 0 %; CH 29.1; CHCM 32.4; Eosinophils % (A) 0 %; HCT 43.5 % (39.0-53.0); HDW 2.69; HGB 13.9 gm/dL (13.0-17.5); Luc # (Auto) 0.14; Luc % (Auto) 4; Lymphocytes # (A) 0.7 k/uL (1.0-4.8); Lymphocytes % (A) 18 %; MCH 28.9 pg (25.0-35.0); MCV 90.2 fL (80.0-100.0); Mean Platelet Volume 7.9; Monocytes # (A) 0.3 k/uL (0-1.0); Monocytes % (A) 7 %; Neutrophils # (A) 2.8 k/uL (1.3-7.7); Neutrophils % (A) 70 %; RBC 4.82 m/uL (4.30-5.90); RDW 13.7 % (11.5-15.5); WBC (Perox) 4.44
[2016-05-20 05:12] LABS: Anion Gap 8 mmol/L; Blood Urea Nitrogen 18 mg/dL (9-20); Calcium 8.3 mg/dL (8.4-10.2); Carbon Dioxide 34 mmol/L (22-30); Chloride 98 mmol/L (98-107); Glucose 120 mg/dL (74-99); Magnesium 2.3 mg/dL (1.6-2.3); Non-African American GFR(MDRD) >60 (>60 ml/min/1.73 sqM); Phosphorous 3.1 mg/dL (2.5-4.5); Sodium 140 mmol/L (137-145)
[2016-05-20 05:20] LABS: Potassium 4.2 mmol/L (3.5-5.1)
--- NOTE | 2016-05-20 07:27 | XR ---
EXAMINATION TYPE: XR chest 1V portable DATE OF EXAM: 05/20/2016 6:14 AM HISTORY: Shortness of breath. COMPARISON: 05/18/2016 TECHNIQUE: Single view of the chest is submitted. FINDINGS: Demonstrated are scattered senescent parenchymal change. Continued moderate elevation right hemidiaphragm. Patchy infiltrate left lower lobe and to a lesser e xtent right lower lobe. Overall appearance is stable. The heart is stable. Hilar and mediastinal structures are within normal limits. Degenerative changes are seen of the dorsal spine. IMPRESSION: 1. Stable chest.
[2016-05-20] MEDS: IPRATROPIUM-ALBUTEROL 3 ML NEB INHALATION SCH ×4 (08:28→19:42)
[2016-05-20 08:45] LABS: Glucose,Whole Blood 113 mg/dL (75-99)
[2016-05-20] MEDS: GEMFIBROZIL 600 MG TAB PO SCH ×2 (09:11→17:32)
[2016-05-20] MEDS: INSULIN LISPRO (humaLOG) 300 UNIT/3 ML VIAL SQ SCH ×4 (09:11→23:11)
[2016-05-20] MEDS: PROPRANOLOL 40 MG TAB PO SCH ×2 (09:12→20:17)
[2016-05-20] MEDS: FAMOTIDINE 20 MG TAB PO SCH (09:12)
[2016-05-20] MEDS: CHOLECALCIFEROL 1,000 UNIT TAB PO SCH ×2 (09:12→20:16)
[2016-05-20] MEDS: LORazepam 2 MG/ML SYRINGE IV SCH (09:25)
[2016-05-20] MEDS: ENOXAPARIN 40 MG/0.4 ML SYRINGE SQ SCH (09:25)
[2016-05-20 09:58] VITALS: BMI 26.6
--- NOTE | 2016-05-20 09:58 | PN ---
DATE OF SERVICE: 05/19/2016 This 50-year-old gentleman who was admitted with COPD acute exacerbation, acute bibasilar pneumonia, also had acute respiratory acidosis. The patient also had noncompliance with treatment. The patient is sedated at this time. Dr. Solano and Neurology are following the patient closely. PAST MEDICAL HISTORY: Reviewed. Review of systems could not be taken; the patient is confused. The patient is monitored in ICU. Current medications are: 1. Tylenol 500 mg q.6 p.r.n. 2. DuoNeb q.i.d. and p.r.n. 3. Vitamin D3. 4. Lovenox 40 mg subcu daily. 5. Lopid. 6. Humalog. 7. Levaquin 750 q.24 hours. 8. Multivitamins. 9. Narcan. 10. Zosyn 3.375 IV q.8. 12. Seroquel. 13. Hytrin. PHYSICAL EXAMINATION: The patient is sedated. Pulse 89, blood point 155/85, respirations 14, temperature 97.8, pulse ox 96% on 2-L. HEENT: Conjunctivae normal. Oral mucosa moist. NECK: No jugular venous distention. No thyroid enlargement or carotid bruit. No lymph node enlargement. CARDIOVASCULAR: S1 and S2. No S1, S2. RESPIRATORY: Breath sounds diminished at the bases. Bilateral scattered rhonchi and crackles. ABDOMEN: Soft, nontender. LEGS: No edema, no swelling. NERVOUS SYSTEM: No focal deficits. LABS: WBC 4.8, hemoglobin 12.6, sodium 147. Accu-Cheks are noted. Magnesium 2.4. ASSESSMENT: 1. Chronic obstructive pulmonary disease, acute exacerbation with acute bibasilar pneumonia, possibly gram-negative with acute hypoxic hypercarbic respiratory failure, status post BiPAP. 2. Change in mental status, metabolic encephalopathy, multifactorial. 3. Acute respiratory acidosis. 4. Noncompliance with treatment. 5. Thrombocytopenia, mild, undetermined etiology. 6. Hypernatremia. 7. History of hypertension. 8. History of development delay. 9. History of hernia surgery. 10. Remote history of nicotine dependence. 11. Gait dysfunction. 12. Elevated right hemidiaphragm. 13. FULL CODE. RECOMMENDATIONS AND DISCUSSION: I recommend to continue the current medications, continue monitoring and symptomatic treatment. Continue with bronchodilators, continue antibiotics. Resume the rest of the medications. Ensure oxygenation. Neurology input appreciated. Closely follow with Dr. Solano. Guarded prognosis. Further recommendations to follow. MTDD
[2016-05-20] MEDS: FAMOTIDINE 20 MG/2 ML VIAL IV SCH ×2 (10:18→20:17)
--- NOTE | 2016-05-20 11:00 | EEG ---
DATE OF SERVICE: 05/19/2016 REASON FOR TESTING: Altered mental status. AGE: 50Y DESCRIPTION OF THE PROCEDURE: This EEG was performed using a 21-channel digital electroencephalograph, following the international 10 - 20 system. DESCRIPTION OF THE RECORDING: From the beginning of the tracing, and with the patient's eyes closed, the background rhythm was mostly consisting of 7 Hz theta frequency in the posterior occipital leads. No obvious asymmetry is seen. Photic stimulation was performed with a minimal driving response seen. No pathological waves were elicited. Hyperventilation was not performed. Frequent muscle and movement artifacts are seen. Rare sharp wave activity is noticed. No generalized epileptiform discharges were seen. The patient remains awake throughout the tracing. His EKG lead showed a regular rate and rhythm. INTERPRETATION: This awake EEG is abnormal due to the presence of generalized slowing of the background rhythm, mostly in the theta range. This is consistent with mild encephalopathy. Occasional sharp wave activity was seen. This could be consistent with a reduced seizure threshold. Clinical correlation is recommended.
[2016-05-20] MEDS: MULTIVITAMINS, THERA 1 EACH TAB PO SCH (11:51)
[2016-05-20 11:54] LABS: Glucose,Whole Blood 115 mg/dL (75-99)
--- NOTE | 2016-05-20 12:37 | XR ---
EXAMINATION TYPE: XR chest 1V portable DATE OF EXAM: 05/20/2016 11:50 AM COMPARISON: 05/20/2016 HISTORY: SOB, Follow Up FINDINGS: NG tube is noted coiled within the stomach. No change in bibasilar opacities. Stable appearance of the cardio-mediastinal structures at this time. Pleural effusion unchanged. IMPRESSION: 1. Stable portable chest. Clinical correlation and follow up until resolution is recommended. NG tu be appropriately placed.
--- NOTE | 2016-05-20 14:26 | P.PN ---
Subjective Principal diagnosis: Patient is a 50-year-old male who is being followed by the neurology service for altered mental status. Patient was previously being treated for pneumonia and altered mental status it another facility. He was transferred here for further evaluation. Patient does have history of mental delay and has a caregiver. Patient is being evaluated in the intensive care unit. Patient was noted to have mental status changes including confusion and agitation. His CT of the brain was negative for any acute intracranial process. CTA was also done which showed no significant abnormalities. On exam today, mentation appears to be slightly improved. Patient does respond to name by opening his eyes. He does not follow any commands. Patient remains afebrile with normal white count. He is currently being treated with antibiotics for pneumonia. At the time of my evaluation, patient is resting comfortably in bed and appears to be in no acute distress. Objective - Vital Signs Vital signs: Vital Signs Temp 98.2 F 05/20/16 12:00 Pulse 70 05/20/16 13:00 Resp 12 05/20/16 13:00 BP 164/87 05/20/16 13:00 Pulse Ox 96 05/20/16 13:00 Intake & Output 05/19/16 05/20/16 05/20/16 18:59 06:59 18:59 Intake Total 1350 1450 650 Output Total 513 715 246 Balance 837 735 404 Weight 86.5 kg 86.5 kg Intake: IV 1100 1300 600 Dextrose 5% in Water 1, 1100 1300 600 000 ml @ 100 mls/hr IV . Q10H [facility] Rx#:[id number] Intake, IV Titration 250 150 50 Amount Levofloxacin 750Mg-D5w 150 Pmx 750 mg In Dextrose/ Water 1 150ml.bag @ 100 mls/hr IVPB Q24H [facility] Rx#: [id number] Piperacillin-Tazobactam 3 50 50 .375 gm In Dextrose/Water 1 50ml.bag @ 12.5 mls/hr IVPB Q8H [facility]I Rx#: [id number] Potassium Chloride 10 meq 200 Lidocaine 2% Inj 10 mg In Sodium Chloride 0.9% 100 ml @ 100 mls/hr IV Q1HR [facility]I Rx#:[id number] Output: Urine 513 715 246 Other: Voiding Method Indwelling Catheter Indwelling Catheter Indwelling Catheter # Voids 2 2 - Exam PHYSICAL EXAM: GENERAL APPEARANCE: Patient is a well-developed, male who appears to be in no acute distress. HEENT: Normocephalic, atraumatic, mild right facial droop is seen. Neck is supple with no masses felt. CARDIOVASCULAR: Regular rate and rhythm. ABDOMEN: Nontender, nondistended. EXTREMITIES: Show no edema or clubbing. NEUROLOGICAL EXAM: Patient awakens to verbal stimulation. Patient does not follow simple commands. He does display purposeful movement of upper and lower extremities. Nursing staff reports he did speak few words to painful stimulation. No lateralizing weakness is seen. No tremors or seizure-like activity noted. A slight right sided facial droop is seen. This has been present since admission and his CT and MRIs been normal. Plantar reflexes downgoing. - Labs CBC & Chem 7: 05/20/16 04:35 05/20/16 04:35 Labs: Abnormal Lab Results - Last 24 Hours (Table) 05/19/16 05/19/16 05/20/16 Range/Units 17:13 20:08 04:35 Lymphocytes # 0.7 L (1.0-4.8) k/uL Carbon Dioxide (22-30) mmol/L Creatinine (0.66-1.25) mg/dL Glucose (74-99) mg/dL POC Glucose (mg/dL) 120 H 120 H (75-99) mg/dL Calcium (8.4-10.2) mg/dL 05/20/16 05/20/16 05/20/16 Range/Units 04:35 08:42 11:52 Lymphocytes # (1.0-4.8) k/uL Carbon Dioxide 34 H (22-30) mmol/L Creatinine 0.60 L (0.66-1.25) mg/dL Glucose 120 H (74-99) mg/dL POC Glucose (mg/dL) 113 H 115 H (75-99) mg/dL Calcium 8.3 L (8.4-10.2) mg/dL Microbiology - Last 24 Hours (Table) 05/14/16 20:33 Blood Culture - Preliminary Blood No Growth after 120 hours 05/14/16 20:09 Blood Culture - Preliminary Blood No Growth after 120 hours Assessment and Plan (1) Acute encephalopathy Status: Acute (2) Pneumonia Status: Acute (3) Mental deficiency Status: Chronic Plan: Patient's acute encephalopathy most likely from infectious process. As you recall, patient had normal MRI of the brain. Given patient's slow improvement in mentation, I will hold off on the lumbar puncture with CSF studies for now. No nuchal rigidity on exam. Continue respiratory support as needed and continue neurological checks. Continue antibiotics. Prognosis remains guarded. If any decline in neurological condition a repeat CT would be warranted and possibly go forward with lumbar puncture. I will continue to follow with you. Further recommendations to follow. I performed an examination of the patient and discussed the management with the INTERNATIONAL RECRUITER. I have reviewed the INTERNATIONAL RECRUITER notes and agree with the findings and plan of care.
--- NOTE | 2016-05-20 15:40 | P.PN ---
Progress Note - Text PATIENT WAS SEEN FOR PSYCHIATRIC FOLLOW_UP: As patient was sleeping , I talked with nursing staff and reviewed record: Patient is still confused ,difficult to wake him up ,not his basic function level ,no agitation or aggressive behavior ,CT of brain :no acute process Currently on feeding tube PLAN:Discontinue IV Ativan ,start oral Klonopin 0.5 mg BID ,I will discontinue his Seroquel for now to minimize sedation ,will continue to follow-up
[2016-05-20 17:37] LABS: Glucose,Whole Blood 129 mg/dL (75-99)
--- NOTE | 2016-05-20 17:50 | P.PN ---
Subjective This 50-year-old male continues to be evaluated by the neurology service for worsening mental status. He was transferred from [facility] on May 14, where he was being treated for pneumonia and altered mental status. He has a history of mental delay and has a caregiver. He was initially admitted to an observation floor where he was pulling off his oxygen and his saturations became low. He was then brought up to the ICU on the . He became very agitated and confused and his mental status declined significantly. An initial CT of the brain was done, and showed no acute intracranial abnormalities and a CTA was also done that showed no significant abnormalities, although there was significant movement artifact. His mental status continued to decline. In the last 24 hours his mental status is slightly better, but after talking with his caregiver is not back to baseline. He has been afebrile with a normal white count at last check. He is being treated with antibiotics for pneumonia. At the time of my exam he is lying in bed and in no acute distress. An EEG was performed and showed mild encephalopathy and some rare sharp waves. On 05/19/2016 the patient is being seen in follow-up in the intensive care unit. The patient has no significant rest or distress. 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 His mentation is not recovered yet. He is not fully comprehending although he was able to answer some short questions. He refused to take his oral antibiotics. I stressed this patient to a combination of IV Levaquin and IV Zosyn in regards to potential aspiration pneumonia. No fever. No chills. Hemodynamically stable. He is on Lovenox for DVT prophylaxis. Neurology is following up the case and there is no indication for any acute EDGE BASTER infection or an acute stroke and his EKG showing some mild encephalopathy. The patient is seen again today 05/20/2016 in follow-up in the intensive care unit. His mental status remains essentially unchanged. He did respond with a near complete sentence after load verbal stimuli. Otherwise, he remains nonverbal. He follows some simple commands at times requires significant encouragement. He is refusing anything by mouth. Is using oral medications. Not taking any nourishment. Blood cultures remain negative. No leukocytosis. He is afebrile. Objective - Vital Signs Vital signs: Vital Signs Temp 98.6 F 05/20/16 16:00 Pulse 67 05/20/16 17:00 Resp 12 05/20/16 17:00 BP 140/74 05/20/16 17:00 Pulse Ox 96 05/20/16 17:00 Intake & Output 05/19/16 05/20/16 05/20/16 18:59 06:59 18:59 Intake Total 1350 1450 1050 Output Total 513 715 420 Balance 837 735 630 Weight 86.5 kg 84.5 kg Intake: IV 1100 1300 1000 Dextrose 5% in Water 1, 1100 1300 1000 000 ml @ 100 mls/hr IV . Q10H [facility]STI Rx#:[id number] Intake, IV Titration 250 150 50 Amount Levofloxacin 750Mg-D5w 150 Pmx 750 mg In Dextrose/ Water 1 150ml.bag @ 100 mls/hr IVPB Q24H [facility]STI Rx#: [id number] Piperacillin-Tazobactam 3 50 50 .375 gm In Dextrose/Water 1 50ml.bag @ 12.5 mls/hr IVPB Q8H [facility]I Rx#: [id number] Potassium Chloride 10 meq 200 Lidocaine 2% Inj 10 mg In Sodium Chloride 0.9% 100 ml @ 100 mls/hr IV Q1HR KRISTI Rx#:[id number] Output: Urine 513 715 420 Other: Voiding Method Indwelling Catheter Indwelling Catheter Indwelling Catheter # Voids 2 2 - Exam Head exam was generally normal. There was no scleral icterus or corneal arcus. Mucous membranes were moist.Neck was supple and without jugular venous distension, thyromegaly, or carotid bruits. Carotids were easily palpable bilaterally. There was no adenopathy. Lung sounds are diminished on the right compared to the left along with some few bibasilar crackles.Cardiac exam revealed the PMI to be normally situated and sized. The rhythm was regular and no extrasystoles were noted during several minutes of auscultation. The first and second heart sounds were normal and physiologic splitting of the second heart sound was noted. There were no murmurs, rubs, clicks, or gallops.Abdominal exam revealed normal bowel sounds. The abdomen was soft, non- tender, and without masses, organomegaly, or appreciable enlargement of the abdominal aorta.Examination of the extremities revealed easily palpable radial, femoral and pedal pulses. There was no cyanosis, clubbing or edema. - Labs CBC & Chem 7: 05/20/16 04:35 05/20/16 04:35 Labs: Abnormal Lab Results - Last 24 Hours (Table) 05/19/16 05/20/16 05/20/16 Range/Units 20:08 04:35 04:35 Lymphocytes # 0.7 L (1.0-4.8) k/uL Carbon Dioxide 34 H (22-30) mmol/L Creatinine 0.60 L (0.66-1.25) mg/dL Glucose 120 H (74-99) mg/dL POC Glucose (mg/dL) 120 H (75-99) mg/dL Calcium 8.3 L (8.4-10.2) mg/dL 05/20/16 05/20/16 05/20/16 Range/Units 08:42 11:52 17:35 Lymphocytes # (1.0-4.8) k/uL Carbon Dioxide (22-30) mmol/L Creatinine (0.66-1.25) mg/dL Glucose (74-99) mg/dL POC Glucose (mg/dL) 113 H 115 H 129 H (75-99) mg/dL Calcium (8.4-10.2) mg/dL Microbiology - Last 24 Hours (Table) 05/14/16 20:33 Blood Culture - Preliminary Blood No Growth after 120 hours 05/14/16 20:09 Blood Culture - Preliminary Blood No Growth after 120 hours Assessment and Plan Plan: Impression: 1 acute bilateral pneumonia with limited bibasilar pulmonary infiltrate and chronic elevation of the right hemidiaphragm 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 2 hypoxic respiratory failure, stable. 3 altered mental status, related to sepsis/metabolic encephalopathy. Workup has been completed including a normal MRI and some mild encephalopathy on the EEG without evidence of seizure activity. The patient was not found to be needing a lumbar puncture per neurology. 4 developmental delay/mental retardation 5 previous history of right breast reconstruction surgery Plan The patient was seen and evaluated by Dr. Solano. We'll continue the patient' s current antibiotics in the form of Zosyn and Levaquin. Psychiatric services in any case as well. He remains on Seroquel and Ativan today. Neurology is on the case as well. There are no plans for lumbar puncture at this point. We are concerned regarding poor oral intake and a nasogastric tube was inserted and will plan for tube feedings. We'll continue to follow make further recommendations based on his clinical status.
[2016-05-20] MEDS: LEVOFLOXACIN 750MG-D5W PMX 750 MG in DEXTROSE/WATER 1 150ML.BAG IVPB SCH (18:00)
--- NOTE | 2016-05-20 19:28 | PN ---
DATE OF SERVICE: 05/20/2016 This 50-year-old gentleman admitted with COPD acute exacerbation, bibasilar pneumonia, possibly gram-negative with acute hypoxic respiratory failure and possible sepsis, also had change in mental status. The patient is closely monitored in the ICU at this time. Dr. Solano is following the patient closely. Psychiatry is also following the patient is as well as neurology. The most recent chest x-ray done today showed stable NG tube in situ at this time. The patient continues to be restless and combative and sensorium is improved from yesterday. PAST MEDICAL HISTORY: Reviewed. Review of systems could not be taken because of the change in mental status. Current medications are: 1. Tylenol 500 mg q.6 p.r.n. 2. DuoNeb q.i.d. and p.r.n. 3. Vitamin D3 2000 b.i.d. 4. Lovenox 40 mg subcu daily. 5. Pepcid 40 mg b.i.d. 6. Lopid 600 mg a.c. b.i.d. 7. Humalog scale. 8. Levaquin 750 daily. 9. Multivitamins one p.o. daily. 10. Narcan. 11. Zofran. 12. Zosyn 3.75 q.8. 13. Inderal 40 mg b.i.d. 14. Seroquel 400 mg q.h.s. 15. Hytrin 5 mg p.o. q.h.s. PHYSICAL EXAMINATION: The patient is stuporous. Pulse 70, blood pressure is 165/87, respirations 12, temperature normal, pulse ox 97% on 2-L. HEENT: Conjunctivae normal. NECK: No jugular venous distention. CARDIOVASCULAR: S1 and S2, muffled. RESPIRATORY: Breath sounds diminished at the bases. A few scattered rhonchi and crackles. ABDOMEN: Soft, nontender. LEGS: No edema, no swelling. NERVOUS SYSTEM: Diffusely weak. LABS: CBC within normal limits. Accu-Cheks are noted. Calcium is 8.3. ASSESSMENT: 1. Chronic obstructive pulmonary disease acute exacerbation with acute bibasilar pneumonia, possibly gram-negative with acute hypoxic hypercarbic respiratory failure and as well as sepsis, status post BiPAP. 2. Change in mental status, metabolic encephalopathy, multifactorial. 3. Acute respiratory acidosis. 4. Noncompliance with treatment. 5. Thrombocytopenia, mild of undetermined etiology. 6. Hypernatremia. 7. Hypertension. 8. History developmental delay. 9. History of hernia surgery. 10. Remote history of nicotine dependence. 11. Gait dysfunction. 12. Elevated right hemidiaphragm. 13. FULL CODE. RECOMMENDATIONS AND DISCUSSION: In this 50-year-old gentleman who presented with multiple complex medical issues. Will monitor the patient closely, continue the current medications. Continue symptomatic treatment. Continue with bronchodilators and empiric antibiotics. Otherwise, continue to monitor. Guarded prognosis because of multiple complex medical issues. Further recommendations to follow.
[2016-05-20] MEDS: clonazePAM 0.5 MG TAB PO SCH (20:15)
[2016-05-20] MEDS: TERAZOSIN 5 MG CAP PO SCH (20:17)
[2016-05-20 20:21] LABS: Glucose,Whole Blood 106 mg/dL (75-99)
[2016-05-21 04:51] LABS: Anion Gap 8 mmol/L; Blood Urea Nitrogen 18 mg/dL (9-20); Calcium 8.7 mg/dL (8.4-10.2); Carbon Dioxide 31 mmol/L (22-30); Chloride 97 mmol/L (98-107); Glucose 119 mg/dL (74-99); Magnesium 2.2 mg/dL (1.6-2.3); Non-African American GFR(MDRD) >60 (>60 ml/min/1.73 sqM); Phosphorous 3.4 mg/dL (2.5-4.5); Potassium 4.1 mmol/L (3.5-5.1); Sodium 136 mmol/L (137-145)
[2016-05-21 04:56] LABS: CH 29.7; CHCM 33.2; HCT 40.5 % (39.0-53.0); HDW 2.63; HGB 13.4 gm/dL (13.0-17.5); MCH 29.8 pg (25.0-35.0); MCHC 33.1 g/dL (31.0-37.0); MCV 89.9 fL (80.0-100.0); RBC 4.51 m/uL (4.30-5.90); RDW 13.8 % (11.5-15.5); WBC 4.9 k/uL (3.8-10.6)
--- NOTE | 2016-05-21 06:45 | XR ---
EXAMINATION TYPE: XR chest 1V portable DATE OF EXAM: 05/21/2016 6:38 AM CLINICAL HISTORY: Difficulty breathing and pneumonia progress study. TECHNIQUE: Single AP portable semiupright view of the chest is obtained. COMPARISON: Chest x-ray from one day earlier FINDINGS: A nasogastric tube is stable in appearance. There is persistent elevated right hemidiaphra gm with associated right basilar atelectasis and/or infiltrate. Left basilar opacity is felt slightly improved. No significant pleural effusion or pneumothorax is seen bilaterally. Cardiac silhouette si ze is stable and within normal limits. Osseous structures are intact. IMPRESSION: Persistent elevated right hemidiaphragm with right basilar atelectasis and/or infiltrate. Improving left basilar atelectasis and/or infiltrate is present. No new infiltrate is seen.
[2016-05-21] MEDS: IPRATROPIUM-ALBUTEROL 3 ML NEB INHALATION SCH ×4 (07:25→19:44)
[2016-05-21 07:49] LABS: Glucose,Whole Blood 113 mg/dL (75-99)
[2016-05-21] MEDS: INSULIN LISPRO (humaLOG) 300 UNIT/3 ML VIAL SQ SCH ×4 (09:21→23:24)
[2016-05-21] MEDS: CHOLECALCIFEROL 1,000 UNIT TAB PO SCH ×2 (09:21→20:31)
[2016-05-21] MEDS: ENOXAPARIN 40 MG/0.4 ML SYRINGE SQ SCH (09:21)
[2016-05-21] MEDS: PIPERACILLIN-TAZOBACTAM 3.375 GM in DEXTROSE/WATER 1 50ML.BAG IVPB SCH ×3 (09:21→20:31)
[2016-05-21] MEDS: PROPRANOLOL 40 MG TAB PO SCH ×2 (09:22→20:31)
[2016-05-21] MEDS: FAMOTIDINE 20 MG/2 ML VIAL IV SCH ×2 (09:22→20:31)
[2016-05-21] MEDS: GEMFIBROZIL 600 MG TAB PO SCH ×2 (09:22→18:32)
[2016-05-21] MEDS: MULTIVITAMINS, THERA 1 EACH TAB PO SCH (09:22)
[2016-05-21] MEDS: clonazePAM 0.5 MG TAB PO SCH ×3 (09:24→21:38)
[2016-05-21] MEDS: DEXTROSE 5% IN WATER 1,000 ML IV SCH ×2 (11:31→23:25)
[2016-05-21 12:54] LABS: Glucose,Whole Blood 104 mg/dL (75-99)
--- NOTE | 2016-05-21 13:58 | P.PN ---
Progress Note - Text SUBJECTIVE: Patient ia awake ,slight improvement in his mental status ,able to tell me his name and being in mental unit "MAYBE THREE OR FOUR",long reaction time , requires significant encouragement ,otherwise he was staring at me ,non verbal He was watching TV cartoon but when I asked him about it he could not tell me Recent Chest X ray:some infiltration of lungs bases ,bilaterally EEG: encephalopathy ,mild Blood culture :negative VITALS:Pulse:67,Resp:12,BP:140/74,Pulse OX:96 ASSESSMENT:Encephalopathy ,multifactorial HX of schizoaffective disorder ,DD disorder PLAN: Increase Klonopin to 0.5 mg TID ,was on 3 mg daily for 2-3 years , continue follow-up and monitor his thought process and his need to be back on his Seroquel
--- NOTE | 2016-05-21 15:15 | P.PN ---
Subjective Principal diagnosis: Patient is a 50-year-old male who is being followed by the neurology service for altered mental status. Patient mental status is slowly improving. Patient is much more awake and alert today. Patient does follow commands. Patient is conversant. Patient does speak in short phrases and answers appropriately to questions asked. As you recall, his CT of the brain was negative for any acute intracranial process. CTA was also done which showed no significant abnormalities. As mentioned above, patient is much more responsive today. At the time of my exam, he is resting comfortably and appears to be in no acute distress. Objective - Vital Signs Vital signs: Vital Signs Temp 97.4 F L 05/21/16 12:00 Pulse 75 05/21/16 14:48 Resp 22 05/21/16 14:00 BP 109/66 05/21/16 14:00 Pulse Ox 92 L 05/21/16 14:00 Intake & Output 05/20/16 05/21/16 05/21/16 18:59 06:59 18:59 Intake Total 1290 1770 990 Output Total 598 282 3613 Balance 805 1400 -290 Weight 84.5 kg Intake: IV 1200 1000 500 Dextrose 5% in Water 1, 1200 1000 500 000 ml @ 100 mls/hr IV . Q10H [facility] Rx#:[id number] Intake, IV Titration 50 150 50 Amount Dextrose 5% in Water 1, 100 000 ml @ 100 mls/hr IV . Q10H [facility]STI Rx#:[id number] Piperacillin-Tazobactam 3 50 50 50 .375 gm In Dextrose/Water 1 50ml.bag @ 12.5 mls/hr IVPB Q8H [facility]STI Rx#: [id number] Tube Feeding 40 300 440 Other 320 Output: Urine 243 592 8221 Other: Voiding Method Indwelling Catheter Indwelling Catheter Indwelling Catheter # Voids 2 - Exam PHYSICAL EXAM: GENERAL APPEARANCE: Patient is a well-developed, male who appears to be in no acute distress. HEENT: Normocephalic, atraumatic, mild right facial droop is seen. Neck is supple with no masses felt. CARDIOVASCULAR: Regular rate and rhythm. ABDOMEN: Nontender, nondistended. EXTREMITIES: Show no edema or clubbing. NEUROLOGICAL EXAM: Patient awakens to verbal stimulation. Patient does follow simple commands. No lateralizing weakness is seen. Sensory exam to light touch is normal in all 4 extremities. No obvious facial asymmetry is seen. No tremors or seizure-like activity is noted. - Labs CBC & Chem 7: 05/21/16 04:07 05/21/16 04:07 Labs: Abnormal Lab Results - Last 24 Hours (Table) 05/20/16 05/20/16 05/21/16 Range/Units 17:35 20:19 04:07 Sodium 136 L (137-145) mmol/L Chloride 97 L (98-107) mmol/L Carbon Dioxide 31 H (22-30) mmol/L Creatinine 0.60 L (0.66-1.25) mg/dL Glucose 119 H (74-99) mg/dL POC Glucose (mg/dL) 129 H 106 H (75-99) mg/dL 05/21/16 05/21/16 Range/Units 07:48 12:52 Sodium (137-145) mmol/L Chloride (98-107) mmol/L Carbon Dioxide (22-30) mmol/L Creatinine (0.66-1.25) mg/dL Glucose (74-99) mg/dL POC Glucose (mg/dL) 113 H 104 H (75-99) mg/dL Microbiology - Last 24 Hours (Table) 05/14/16 20:33 Blood Culture - Final Blood No Growth after 144 hours 05/14/16 20:09 Blood Culture - Final Blood No Growth after 144 hours Assessment and Plan (1) Acute encephalopathy Narrative/Plan: Patient's acute encephalopathy is multifactorial. His you recall, patient had normal MRI of the brain. Patient is showing improvement. No nuchal rigidity on my exam. Continue current medical support. Continue neurological checks. Prognosis remains guarded. If any decline in neurological condition a repeat CT would be warranted. I will continue to follow with you on an as-needed basis. Feel free to call with any questions or concerns. I performed an examination of the patient and discussed the management with the CONTRACT DESIGNER. I have reviewed the CONTRACT DESIGNER notes and agree with the findings and plan of care. Status: Acute (2) Pneumonia Status: Acute (3) Mental deficiency Status: Chronic
--- NOTE | 2016-05-21 16:48 | P.PN ---
Subjective This 50-year-old male continues to be evaluated by the neurology service for worsening mental status. He was transferred from [facility] on May 14, where he was being treated for pneumonia and altered mental status. He has a history of mental delay and has a caregiver. He was initially admitted to an observation floor where he was pulling off his oxygen and his saturations became low. He was then brought up to the ICU on the . He became very agitated and confused and his mental status declined significantly. An initial CT of the brain was done, and showed no acute intracranial abnormalities and a CTA was also done that showed no significant abnormalities, although there was significant movement artifact. His mental status continued to decline. In the last 24 hours his mental status is slightly better, but after talking with his caregiver is not back to baseline. He has been afebrile with a normal white count at last check. He is being treated with antibiotics for pneumonia. At the time of my exam he is lying in bed and in no acute distress. An EEG was performed and showed mild encephalopathy and some rare sharp waves. on 05/21/2016 the patient is being seen in follow-up in intensive care unit. There has been improvement in his neurological function today. The patient was taken off this adequate and he was placed on clonazepam. This probably helped and I suspect that the patient's obtundation was probably a drug effect specially related to his sacral intake. The patient is doing much better. He is communicating. His verbal. His answering questions appropriately. He denies having any respiratory distress. Note that earlier an NG tube was inserted for enteral feeding and this will be ultimately removed and the patient will be resumed back on his oral diet. He remains on a combination of Zosyn and Levaquin being treated for a right lower lobe pneumonia. No chills. No fever. No hemodynamic instability. No other complaints otherwise. Chest x- ray findings are essentially stable with a elevated right hemidiaphragm. Objective - Vital Signs Vital signs: Vital Signs Temp 97.4 F L 05/21/16 12:00 Pulse 75 05/21/16 14:48 Resp 22 05/21/16 14:00 BP 109/66 05/21/16 14:00 Pulse Ox 92 L 05/21/16 14:00 Intake & Output 05/20/16 05/21/16 05/21/16 18:59 06:59 18:59 Intake Total 1290 1770 990 Output Total 824 006 0590 Balance 805 1400 -290 Weight 84.5 kg Intake: IV 1200 1000 500 Dextrose 5% in Water 1, 1200 1000 500 000 ml @ 100 mls/hr IV . Q10H [facility]I Rx#:[id number] Intake, IV Titration 50 150 50 Amount Dextrose 5% in Water 1, 100 000 ml @ 100 mls/hr IV . Q10H [facility]I Rx#:[id number] Piperacillin-Tazobactam 3 50 50 50 .375 gm In Dextrose/Water 1 50ml.bag @ 12.5 mls/hr IVPB Q8H [facility]STI Rx#: [id number] Tube Feeding 40 300 440 Other 320 Output: Urine 112 186 2615 Other: Voiding Method Indwelling Catheter Indwelling Catheter Indwelling Catheter # Voids 2 - Exam Head exam was generally normal. There was no scleral icterus or corneal arcus. Mucous membranes were moist.Neck was supple and without jugular venous distension, thyromegaly, or carotid bruits. Carotids were easily palpable bilaterally. There was no adenopathy. Lung sounds are diminished on the right compared to the left along with some few bibasilar crackles.Cardiac exam revealed the PMI to be normally situated and sized. The rhythm was regular and no extrasystoles were noted during several minutes of auscultation. The first and second heart sounds were normal and physiologic splitting of the second heart sound was noted. There were no murmurs, rubs, clicks, or gallops.Abdominal exam revealed normal bowel sounds. The abdomen was soft, non- tender, and without masses, organomegaly, or appreciable enlargement of the abdominal aorta.Examination of the extremities revealed easily palpable radial, femoral and pedal pulses. There was no cyanosis, clubbing or edema.neurologically, the patient is moving all 4 extremities and communicating. - Labs CBC & Chem 7: 05/21/16 04:07 05/21/16 04:07 Labs: Abnormal Lab Results - Last 24 Hours (Table) 05/20/16 05/20/16 05/21/16 Range/Units 17:35 20:19 04:07 Sodium 136 L (137-145) mmol/L Chloride 97 L (98-107) mmol/L Carbon Dioxide 31 H (22-30) mmol/L Creatinine 0.60 L (0.66-1.25) mg/dL Glucose 119 H (74-99) mg/dL POC Glucose (mg/dL) 129 H 106 H (75-99) mg/dL 05/21/16 05/21/16 Range/Units 07:48 12:52 Sodium (137-145) mmol/L Chloride (98-107) mmol/L Carbon Dioxide (22-30) mmol/L Creatinine (0.66-1.25) mg/dL Glucose (74-99) mg/dL POC Glucose (mg/dL) 113 H 104 H (75-99) mg/dL Microbiology - Last 24 Hours (Table) 05/14/16 20:33 Blood Culture - Final Blood No Growth after 144 hours 05/14/16 20:09 Blood Culture - Final Blood No Growth after 144 hours Assessment and Plan Plan: Assessment 1 acute bilateral pneumonia with limited bibasilar pulmonary infiltrate and chronic elevation of the right hemidiaphragm 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 on 05/21/2016, the patient remains to be on a combination of Zosyn and Levaquin. Chest x-ray findings are essentially stable. Right hemidiaphragm is significantly elevated and this is a chronic finding. 2 hypoxic respiratory failure, stable. 3 altered mental status, related to sepsis/metabolic encephalopathy, related to drug effect. The patient has had a an extensive neuro workup including an MRI of the brain and EEG results were essentially nonrevealing. He was taken off Seroquel and he is currently communicating his neurologic exam is nonfocal. 4 developmental delay/mental retardation 5 previous history of right breast reconstruction surgery Plan remove the NG tube and provide the patient oral feeds. Continue the same antibiotic coverage. Monitor the neurologic function over the next 24 hours here in the ICU. We'll continue to follow and we'll move the patient out of the intensive care unit he remains stable for another 24 hours.
--- NOTE | 2016-05-21 17:10 | PN ---
DATE OF SERVICE: 05/21/2016 This 50-year-old gentleman admitted with bibasilar pneumonia, also had possible sepsis and acute hypoxic respiratory failure. The patient with change in mental status, metabolic encephalopathy. The mentation is improving at this time. The patient has NG tube feeds at this time. Dr. Solano is planning to transition to p.o. feeds once the patient's sensorium and cooperation level improves. The patient was removed from oxygen previously. The patient is being closely monitored. The patient is on broad-spectrum IV antibiotics. Past medical history reviewed. Review of systems could not be taken. The patient is much more alert though today. Current medications are: 1. Tylenol 500 mg every 6 hours p.r.n. 2. DuoNeb q.i.d. and p.r.n. 3. Vitamin D3 2000 b.i.d. 4. Klonopin 0.5 mg p.o. daily. 5. Dextrose 5%. 6. Lovenox 40 mg subcu daily. 7. Pepcid 20 mg b.i.d. 8. Lopid 600 mg b.i.d. 9. Humalog scale. 10. Levaquin 750 IV daily 11. P.r.n. replacement protocols. 12. Multivitamins 1 p.o. daily. 13. Narcan 0.2 q.2 p.r.n. 14. Zofran 4 mg every 6 hours p.r.n. 15. Zosyn 3.375 IV q.8. 16. Inderal 40 mg b.i.d. 17. Hytrin 5 mg q.h.s. PHYSICAL EXAM: Patient is alert, but confused. Pulse 78, blood pressure 104/76, respirations 18, temperature 97.4, pulse ox 94% on 2L. HEENT: Conjunctivae normal. Oral mucosa moist. NECK: No jugular venous distention. No carotid bruits. No lymph node enlargement. No thyroid enlargement. CARDIOVASCULAR: S1 and S2 muffled. No S3. No S4. RESPIRATORY: Breath sounds diminished in the bases. Bilateral scattered rhonchi and crackles. Abdomen is soft, nontender. No mass palpable. LEGS: No edema. No swelling. NERVOUS SYSTEM: Diffusely weak, confused. The labs are CBC within normal limits. Sodium is 136 and creatinine 0.6. Accu-Cheks noted. The most recent chest x-ray done today showed persistent elevated right hemidiaphragm and atelectasis, infiltrate. ASSESSMENT: 1. Chronic obstructive pulmonary disease acute exacerbation with acute bibasilar pneumonia, possibly gram-negative and with acute hypoxic hypercarbic respiratory failure as well as sepsis, status post bi-level positive airway pressure. 2. Change in mental status, metabolic encephalopathy, multifactorial. 3. Acute respiratory acidosis, present on admission. 4. Noncompliance with treatment. 5. Thrombocytopenia, mild, of undetermined etiology. 6. Hyponatremia. 7. Hypertension. 8. History of developmental delay. 9. History of hernia surgery. 10. History of nicotine dependence. 11. Gait dysfunction. 12. History of elevated right hemidiaphragm. 13. FULL CODE. RECOMMENDATIONS AND DISCUSSION: In this 50-year-old gentleman who presented with multiple complex medical issues, we will monitor the patient closely. Continue the current medications and symptomatic treatment. Otherwise, continue with the bronchodilators, continue with incentive spirometry. Guarded prognosis because of multiple complex medical issues. Further recommendations to follow. See orders for further details. Closely follow with Pulmonary and Psychiatry has also adjusted the medication. The patient is back on Klonopin. Otherwise, once the sensorium improves and the patient is able to take p.o. food, NG tube may be removed.
[2016-05-21 17:20] LABS: Glucose,Whole Blood 120 mg/dL (75-99)
[2016-05-21] MEDS: LEVOFLOXACIN 750MG-D5W PMX 750 MG in DEXTROSE/WATER 1 150ML.BAG IVPB SCH (18:33)
[2016-05-21] MEDS: TERAZOSIN 5 MG CAP PO SCH (20:31)
[2016-05-21 21:40] LABS: Glucose,Whole Blood 93 mg/dL (75-99)
[2016-05-22 05:14] LABS: CHCM 32.7; HCT 42.9 % (39.0-53.0); HDW 2.67; HGB 13.7 gm/dL (13.0-17.5); MCH 28.4 pg (25.0-35.0); MCV 88.8 fL (80.0-100.0); Mean Platelet Volume 7.9; RBC 4.83 m/uL (4.30-5.90); RDW 13.9 % (11.5-15.5); WBC 5.6 k/uL (3.8-10.6)
[2016-05-22 05:43] LABS: Anion Gap 8 mmol/L; Blood Urea Nitrogen 21 mg/dL (9-20); Calcium 8.9 mg/dL (8.4-10.2); Carbon Dioxide 32 mmol/L (22-30); Chloride 96 mmol/L (98-107); Glucose 98 mg/dL (74-99); Magnesium 2.3 mg/dL (1.6-2.3); Non-African American GFR(MDRD) >60 (>60 ml/min/1.73 sqM); Potassium 4.4 mmol/L (3.5-5.1); Sodium 136 mmol/L (137-145)
--- NOTE | 2016-05-22 06:52 | XR ---
EXAMINATION TYPE: XR chest 1V portable DATE OF EXAM: 05/22/2016 6:36 AM HISTORY: Difficulty breathing. REFERENCE: Previous study dated 05/21/2016. FINDINGS: The patient NG tube is been removed. There is persistent apparent elevation of the right hemidiaphragm. There is right basilar airspace di sease and a lesser degree of left basilar airspace disease. The heart is not enlarged. IMPRESSION: 1. CONTINUED APPARENT ELEVATION RIGHT HEMIDIAPHRAGM. 2. BIBASILAR ATELECTASIS.
[2016-05-22] MEDS: PIPERACILLIN-TAZOBACTAM 3.375 GM in DEXTROSE/WATER 1 50ML.BAG IVPB SCH ×3 (06:53→20:20)
[2016-05-22 07:08] LABS: Glucose,Whole Blood 98 mg/dL (75-99)
[2016-05-22] MEDS: IPRATROPIUM-ALBUTEROL 3 ML NEB INHALATION SCH ×4 (07:51→18:47)
[2016-05-22 07:54] LABS: Glucose,Whole Blood 101 mg/dL (75-99)
[2016-05-22] MEDS: INSULIN LISPRO (humaLOG) 300 UNIT/3 ML VIAL SQ SCH ×4 (08:05→21:48)
[2016-05-22] MEDS: clonazePAM 0.5 MG TAB PO SCH ×3 (08:21→20:20)
[2016-05-22] MEDS: ENOXAPARIN 40 MG/0.4 ML SYRINGE SQ SCH (08:21)
[2016-05-22] MEDS: CHOLECALCIFEROL 1,000 UNIT TAB PO SCH ×2 (08:21→20:21)
[2016-05-22] MEDS: GEMFIBROZIL 600 MG TAB PO SCH ×2 (08:21→18:22)
[2016-05-22] MEDS: FAMOTIDINE 20 MG/2 ML VIAL IV SCH ×2 (08:21→20:21)
[2016-05-22] MEDS: PROPRANOLOL 40 MG TAB PO SCH ×2 (08:22→20:21)
--- NOTE | 2016-05-22 10:06 | P.PN ---
Progress Note - Text Patient was seen for psychiatric follow-up :I saw the patient and I discussed his case with his RN There has been improvement in his cognitive function today. Enteric tube was removed ,able to drink ,oral intake is improving. The patient is doing much better. He is communicating. His verbal. His answering questions appropriately. He was able to use TV remote on his own when I asked him to lower the volume,he denies any current suicidal or homicidal ideation,denies any hallucination ,no aggressive or combative behavior ,he is alert to person only Patient is able to comprehend most of questions ,delayed reaction time ,speech is not slurred but limited in productivity ,affect is flat ASSESSMENT :Patient is improving ,no evidence for psychosis ,I will continue him on Klonopin for now and we will monitor any recurrence of thought disorder on daily basis
[2016-05-22 11:59] LABS: Glucose,Whole Blood 89 mg/dL (75-99)
[2016-05-22] MEDS: MULTIVITAMINS, THERA 1 EACH TAB PO SCH (12:12)
--- NOTE | 2016-05-22 16:37 | P.PN ---
Subjective This 50-year-old male continues to be evaluated by the neurology service for worsening mental status. He was transferred from [facility] on May 14, where he was being treated for pneumonia and altered mental status. He has a history of mental delay and has a caregiver. He was initially admitted to an observation floor where he was pulling off his oxygen and his saturations became low. He was then brought up to the ICU on the . He became very agitated and confused and his mental status declined significantly. An initial CT of the brain was done, and showed no acute intracranial abnormalities and a CTA was also done that showed no significant abnormalities, although there was significant movement artifact. His mental status continued to decline. In the last 24 hours his mental status is slightly better, but after talking with his caregiver is not back to baseline. He has been afebrile with a normal white count at last check. He is being treated with antibiotics for pneumonia. At the time of my exam he is lying in bed and in no acute distress. An EEG was performed and showed mild encephalopathy and some rare sharp waves. on 05/21/2016 the patient is being seen in follow-up in intensive care unit. There has been improvement in his neurological function today. The patient was taken off this adequate and he was placed on clonazepam. This probably helped and I suspect that the patient's obtundation was probably a drug effect specially related to his sacral intake. The patient is doing much better. He is communicating. His verbal. His answering questions appropriately. He denies having any respiratory distress. Note that earlier an NG tube was inserted for enteral feeding and this will be ultimately removed and the patient will be resumed back on his oral diet. He remains on a combination of Zosyn and Levaquin being treated for a right lower lobe pneumonia. No chills. No fever. No hemodynamic instability. No other complaints otherwise. Chest x- ray findings are essentially stable with a elevated right hemidiaphragm. On 05/19/2016 the patient is alert and awake and he is following simple commands. NG tube was removed. The patient was provided oral diet. He'll be moved to a chair. No nausea. No vomiting. No emesis per nostril distress. No seizure activity. No focal neurological deficits. He seems to be slowly recovering. Objective - Vital Signs Vital signs: Vital Signs Temp 97.5 F L 05/22/16 12:00 Pulse 77 05/22/16 16:03 Resp 15 05/22/16 15:00 BP 86/59 05/22/16 15:00 Pulse Ox 95 05/22/16 15:51 Intake & Output 05/21/16 05/22/16 05/22/16 18:59 06:59 18:59 Intake Total 1400 120 160 Output Total 1880 60 665 Balance -480 60 -505 Weight 83.2 kg Intake: IV 560 20 160 Dextrose 5% in Water 1, 560 20 160 000 ml @ 100 mls/hr IV . Q10H KRISTI Rx#:[id number] Intake, IV Titration 200 Amount Levofloxacin 750Mg-D5w 150 Pmx 750 mg In Dextrose/ Water 1 150ml.bag @ 100 mls/hr IVPB Q24H KRISTI Rx#: [id number] Piperacillin-Tazobactam 3 50 .375 gm In Dextrose/Water 1 50ml.bag @ 12.5 mls/hr IVPB Q8H KRISTI Rx#: [id number] Tube Feeding 640 100 Output: Urine 1880 60 665 Other: Voiding Method Indwelling Catheter Indwelling Catheter Indwelling Catheter # Voids 2 - Exam Head exam was generally normal. There was no scleral icterus or corneal arcus. Mucous membranes were moist.Neck was supple and without jugular venous distension, thyromegaly, or carotid bruits. Carotids were easily palpable bilaterally. There was no adenopathy. Lung sounds are diminished on the right compared to the left along with some few bibasilar crackles.Cardiac exam revealed the PMI to be normally situated and sized. The rhythm was regular and no extrasystoles were noted during several minutes of auscultation. The first and second heart sounds were normal and physiologic splitting of the second heart sound was noted. There were no murmurs, rubs, clicks, or gallops.Abdominal exam revealed normal bowel sounds. The abdomen was soft, non- tender, and without masses, organomegaly, or appreciable enlargement of the abdominal aorta.Examination of the extremities revealed easily palpable radial, femoral and pedal pulses. There was no cyanosis, clubbing or edema.neurologically, the patient is moving all 4 extremities and communicating. 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 on 05/21/2016, the patient remains to be on a combination of Zosyn and Levaquin. Chest x-ray findings are essentially stable. Right hemidiaphragm is significantly elevated and this is a chronic finding. On 05/22/2016 the patient remains on the same antibiotics which included a combination of Zosyn and Levaquin. Chest x-ray findings remain stable. No signs of any respiratory distress. We'll continue to follow. 2 hypoxic respiratory failure, stable. 3 altered mental status, related to sepsis/metabolic encephalopathy, related to drug effect. The patient has had a an extensive neuro workup including an MRI of the brain and EEG results were essentially nonrevealing. He was taken off Seroquel and he is currently communicating his neurologic exam is nonfocal. On 05/22/2016, the patient remains somewhat awake, alert, interactive although still not absolutely coherent. There there is some underlying developmental delay and mental retardation at baseline. 4 developmental delay/mental retardation 5 previous history of right breast reconstruction surgery Plan Advance diet. Physical therapy. Set up the patient on a chair. Continue antibiotics. Transferred out of the intensive care unit if he continues to remain stable.
--- NOTE | 2016-05-22 16:57 | P.PN ---
Subjective This is a 50-year-old woman that is admitted to the hospital with a change in mental status. Patient is apparently transfer from [facility]. Patient was initially treated for pneumonia. It appears that after a significant investigation including MRI of the brain and EEG patient was likely noted to have change in mental status secondary to toxic encephalopathy. Patient was on Klonopin for anxiety and was suddenly titrated off it. There is some concern over excessive use of it. At baseline patient only is able to answer some questions appropriately. Today patient is seen in the ICU vitals are stable. Apparently patient had an incident where patient was agitated overnight. Patient was evaluated by neurology, psychiatry. Patient is stable denies having any additional complaints at this time. Objective - Vital Signs Vital signs: Vital Signs Temp 97.5 F L 05/22/16 12:00 Pulse 77 05/22/16 16:03 Resp 15 05/22/16 15:00 BP 86/59 05/22/16 15:00 Pulse Ox 95 05/22/16 15:51 Intake & Output 05/21/16 05/22/16 05/22/16 18:59 06:59 18:59 Intake Total 1400 120 160 Output Total 1880 60 665 Balance -480 60 -505 Weight 83.2 kg Intake: IV 560 20 160 Dextrose 5% in Water 1, 560 20 160 000 ml @ 100 mls/hr IV . Q10H KRISTI Rx#:[id number] Intake, IV Titration 200 Amount Levofloxacin 750Mg-D5w 150 Pmx 750 mg In Dextrose/ Water 1 150ml.bag @ 100 mls/hr IVPB Q24H KRISTI Rx#: [id number] Piperacillin-Tazobactam 3 50 .375 gm In Dextrose/Water 1 50ml.bag @ 12.5 mls/hr IVPB Q8H KRISTI Rx#: [id number] Tube Feeding 640 100 Output: Urine 1880 60 665 Other: Voiding Method Indwelling Catheter Indwelling Catheter Indwelling Catheter # Voids 2 - Exam Physical exam alert to self Neck is supple no JVD Lungs good air entry clear to auscultation no rhonchi or wheezing Heart S1-S2 heard regular rate and rhythm no murmurs appreciated Abdomen is soft nontender no organomegaly bowel sounds are intact Neurologically cranial nerves II-12 grossly intact no focal motor or sensory deficits noted Skin no abnormalities appreciated Psychiatric flat affect no agitation no hallucinations reported - Labs CBC & Chem 7: 05/22/16 04:48 05/22/16 04:48 Labs: Abnormal Lab Results - Last 24 Hours (Table) 05/21/16 05/22/16 05/22/16 Range/Units 17:18 04:48 07:53 Sodium 136 L (137-145) mmol/L Chloride 96 L (98-107) mmol/L Carbon Dioxide 32 H (22-30) mmol/L BUN 21 H (9-20) mg/dL POC Glucose (mg/dL) 120 H 101 H (75-99) mg/dL Phosphorus 5.0 H (2.5-4.5) mg/dL Assessment and Plan Plan: Acute toxic encephalopathy #2 acute hypoxic respiratory failure secondary to bilateral pneumonia #3 mental retardation #4 right hemidiaphragmatic elevation. Plan Judicious use of narcotics. Appreciate psychiatric reevaluation. Continue ongoing care
[2016-05-22 17:44] LABS: Glucose,Whole Blood 179 mg/dL (75-99)
[2016-05-22] MEDS: LEVOFLOXACIN 750MG-D5W PMX 750 MG in DEXTROSE/WATER 1 150ML.BAG IVPB SCH (20:20)
[2016-05-22] MEDS: TERAZOSIN 5 MG CAP PO SCH (20:21)
[2016-05-22 21:47] LABS: Glucose,Whole Blood 134 mg/dL (75-99)
[2016-05-23] MEDS: PIPERACILLIN-TAZOBACTAM 3.375 GM in DEXTROSE/WATER 1 50ML.BAG IVPB SCH ×3 (03:34→19:59)
[2016-05-23 04:23] LABS: Basophils % (A) 0 %; CH 29.4; Eosinophils # (A) 0.2 k/uL (0-0.7); Eosinophils % (A) 4 %; HCT 38.4 % (39.0-53.0); HDW 2.64; HGB 12.8 gm/dL (13.0-17.5); Luc # (Auto) 0.17; Luc % (Auto) 3; Lymphocytes # (A) 1.2 k/uL (1.0-4.8); Lymphocytes % (A) 21 %; MCHC 33.5 g/dL (31.0-37.0); MCV 86.7 fL (80.0-100.0); Mean Platelet Volume 9.1; Monocytes # (A) 0.4 k/uL (0-1.0); Monocytes % (A) 6 %; Neutrophils # (A) 3.8 k/uL (1.3-7.7); Neutrophils % (A) 66 %; RBC 4.43 m/uL (4.30-5.90); RDW 13.9 % (11.5-15.5); WBC 5.7 k/uL (3.8-10.6); WBC (Perox) 5.89
[2016-05-23 04:48] LABS: Anion Gap 10 mmol/L; Blood Urea Nitrogen 17 mg/dL (9-20); Calcium 8.6 mg/dL (8.4-10.2); Carbon Dioxide 30 mmol/L (22-30); Chloride 96 mmol/L (98-107); Glucose 112 mg/dL (74-99); Magnesium 2.1 mg/dL (1.6-2.3); Non-African American GFR(MDRD) >60 (>60 ml/min/1.73 sqM); Potassium 4.1 mmol/L (3.5-5.1); Sodium 136 mmol/L (137-145)
[2016-05-23] MEDS: IPRATROPIUM-ALBUTEROL 3 ML NEB INHALATION SCH ×4 (07:19→20:41)
--- NOTE | 2016-05-23 07:24 | XR ---
EXAMINATION TYPE: XR chest 1V DATE OF EXAM: 05/23/2016 6:55 AM HISTORY: Shortness of breath. COMPARISON: 05/22/2016 TECHNIQUE: Single view of the chest is submitted. FINDINGS: Demonstrated are scattered senescent parenchymal change. Continued elevation right hemidiaphragm with right basilar infiltrate. The heart is stable. Hilar and mediastinal structures are within normal limits. Degenerative changes are seen of the dorsal spine. IMPRESSION: 1. Stable chest
[2016-05-23 07:55] LABS: Glucose,Whole Blood 106 mg/dL (75-99)
[2016-05-23] MEDS: INSULIN LISPRO (humaLOG) 300 UNIT/3 ML VIAL SQ SCH ×4 (10:00→20:54)
[2016-05-23] MEDS: GEMFIBROZIL 600 MG TAB PO SCH ×2 (10:00→17:35)
[2016-05-23] MEDS: CHOLECALCIFEROL 1,000 UNIT TAB PO SCH ×2 (10:00→20:55)
[2016-05-23] MEDS: clonazePAM 0.5 MG TAB PO SCH ×3 (10:01→20:54)
[2016-05-23] MEDS: FAMOTIDINE 20 MG TAB PO SCH ×2 (10:01→20:56)
[2016-05-23] MEDS: PROPRANOLOL 40 MG TAB PO SCH ×2 (10:01→20:56)
[2016-05-23] MEDS: ENOXAPARIN 40 MG/0.4 ML SYRINGE SQ SCH (10:03)
[2016-05-23 12:20] LABS: Glucose,Whole Blood 105 mg/dL (75-99)
[2016-05-23] MEDS: MULTIVITAMINS, THERA 1 EACH TAB PO SCH (13:13)
--- NOTE | 2016-05-23 14:36 | P.PN ---
Progress Note - Text Patient was seen for psychiatric follow-up :I saw the patient and I discussed his case with his RN: Patient was seating on his recliner ,watching cartoon ,animated ,talked about his floor care technician "JEANNE" and asked when he will be able to go home. He denies any current suicidal or homicidal ideation,denies any hallucination , no aggressive or combative behavior ,he is alert to person ,place but not to exact date ,alert to month and year.He report sleep problem but denies any manic or hypomanic features Patient is able to comprehend most of questions ,delayed reaction time ,speech is coherent ,thought process is linear ,concrete thinking due to his limited intellectual function ASSESSMENT :Patient is improving ,no evidence for psychosis ,I will not restarting him on 400 mg Seroquel , just adding low dose of Seroquel to restore his sleep ,continue Klonopin 0.5 mg TID ,discharge to outpatient when medically cleared
--- NOTE | 2016-05-23 16:13 | P.PN ---
Subjective This 50-year-old male continues to be evaluated by the neurology service for worsening mental status. He was transferred from [facility] on May 14, where he was being treated for pneumonia and altered mental status. He has a history of mental delay and has a caregiver. He was initially admitted to an observation floor where he was pulling off his oxygen and his saturations became low. He was then brought up to the ICU on the . He became very agitated and confused and his mental status declined significantly. An initial CT of the brain was done, and showed no acute intracranial abnormalities and a CTA was also done that showed no significant abnormalities, although there was significant movement artifact. His mental status continued to decline. In the last 24 hours his mental status is slightly better, but after talking with his caregiver is not back to baseline. He has been afebrile with a normal white count at last check. He is being treated with antibiotics for pneumonia. At the time of my exam he is lying in bed and in no acute distress. An EEG was performed and showed mild encephalopathy and some rare sharp waves. On 05/19/2016 the patient is being seen in follow-up in the intensive care unit. The patient has no significant rest or distress. 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 His mentation is not recovered yet. He is not fully comprehending although he was able to answer some short questions. He refused to take his oral antibiotics. I stressed this patient to a combination of IV Levaquin and IV Zosyn in regards to potential aspiration pneumonia. No fever. No chills. Hemodynamically stable. He is on Lovenox for DVT prophylaxis. Neurology is following up the case and there is no indication for any acute [employer] infection or an acute stroke and his EKG showing some mild encephalopathy. The patient is seen again today 05/20/2016 in follow-up in the intensive care unit. His mental status remains essentially unchanged. He did respond with a near complete sentence after load verbal stimuli. Otherwise, he remains nonverbal. He follows some simple commands at times requires significant encouragement. He is refusing anything by mouth. Is using oral medications. Not taking any nourishment. Blood cultures remain negative. No leukocytosis. He is afebrile. on 05/21/2016 the patient is being seen in follow-up in intensive care unit. There has been improvement in his neurological function today. The patient was taken off this adequate and he was placed on clonazepam. This probably helped and I suspect that the patient's obtundation was probably a drug effect specially related to his sacral intake. The patient is doing much better. He is communicating. His verbal. His answering questions appropriately. He denies having any respiratory distress. Note that earlier an NG tube was inserted for enteral feeding and this will be ultimately removed and the patient will be resumed back on his oral diet. He remains on a combination of Zosyn and Levaquin being treated for a right lower lobe pneumonia. No chills. No fever. No hemodynamic instability. No other complaints otherwise. Chest x- ray findings are essentially stable with a elevated right hemidiaphragm. On 05/22/2016 the patient is alert and awake and he is following simple commands. NG tube was removed. The patient was provided oral diet. He'll be moved to a chair. No nausea. No vomiting. No emesis per nostril distress. No seizure activity. No focal neurological deficits. He seems to be slowly recovering. The patient is seen again today 05/23/2016 in the intensive care unit. He has improved daily. He is more awake and alert and speaking more sentences. He still remains somewhat slow to respond but does deny any worsening shortness of breath cough or congestion. He remains borderline with O2 saturations 89-90% on room air. We'll continue home at 2 L/m per nasal cannula. His chest x-ray remains stable. No headache. He's been hemodynamically stable. He is cleared for transfer out of the intensive care unit today. Objective - Vital Signs Vital signs: Vital Signs Temp 98 F 05/23/16 15:17 Pulse 92 05/23/16 15:17 Resp 20 05/23/16 15:17 BP 104/59 05/23/16 15:17 Pulse Ox 90 L 05/23/16 15:17 Intake & Output 05/22/16 05/23/16 05/23/16 18:59 06:59 18:59 Intake Total 200 1150 2100 Output Total 990 2750 1625 Balance -790 -1600 475 Weight 86.6 kg 86.6 kg Intake: IV 200 100 100 0.9 100 100 Dextrose 5% in Water 1, 200 000 ml @ 100 mls/hr IV . Q10H [facility]STI Rx#:[id number] Intake, IV Titration 50 Amount Piperacillin-Tazobactam 3 50 .375 gm In Dextrose/Water 1 50ml.bag @ 12.5 mls/hr IVPB Q8H KRISTI Rx#: [id number] Oral 1000 2000 Output: Urine 990 2750 1625 Other: Voiding Method Indwelling Catheter Indwelling Catheter Indwelling Catheter - Exam Head exam was generally normal. There was no scleral icterus or corneal arcus. Mucous membranes were moist.Neck was supple and without jugular venous distension, thyromegaly, or carotid bruits. Carotids were easily palpable bilaterally. There was no adenopathy. Lung sounds are diminished on the right compared to the left along with some few bibasilar crackles.Cardiac exam revealed the PMI to be normally situated and sized. The rhythm was regular and no extrasystoles were noted during several minutes of auscultation. The first and second heart sounds were normal and physiologic splitting of the second heart sound was noted. There were no murmurs, rubs, clicks, or gallops.Abdominal exam revealed normal bowel sounds. The abdomen was soft, non- tender, and without masses, organomegaly, or appreciable enlargement of the abdominal aorta.Examination of the extremities revealed easily palpable radial, femoral and pedal pulses. There was no cyanosis, clubbing or edema. - Labs CBC & Chem 7: 05/23/16 04:05 05/23/16 04:05 Labs: Abnormal Lab Results - Last 24 Hours (Table) 05/22/16 05/22/16 05/23/16 Range/Units 17:41 21:46 04:05 Hgb 12.8 L (13.0-17.5) gm/dL Hct 38.4 L (39.0-53.0) % Sodium (137-145) mmol/L Chloride (98-107) mmol/L Glucose (74-99) mg/dL POC Glucose (mg/dL) 179 H 134 H (75-99) mg/dL 05/23/16 05/23/16 05/23/16 Range/Units 04:05 07:39 12:19 Hgb (13.0-17.5) gm/dL Hct (39.0-53.0) % Sodium 136 L (137-145) mmol/L Chloride 96 L (98-107) mmol/L Glucose 112 H (74-99) mg/dL POC Glucose (mg/dL) 106 H 105 H (75-99) mg/dL Assessment and Plan Plan: Impression: 1 acute bilateral pneumonia with limited bibasilar pulmonary infiltrate and chronic elevation of the right hemidiaphragm 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 2 hypoxic respiratory failure, stable. 3 altered mental status, related to sepsis/metabolic encephalopathy. Workup has been completed including a normal MRI and some mild encephalopathy on the EEG without evidence of seizure activity. The patient was not found to be needing a lumbar puncture per neurology. 4 developmental delay/mental retardation 5 previous history of right breast reconstruction surgery Plan The patient was seen and evaluated by Dr. Solano. He has continued to improve mentally. Still remains somewhat slow to respond. His medications are being adjusted per psychiatric services. We'll continue the patient's current antibiotics in the form of Zosyn and Levaquin. We will increase his activity as tolerated. We'll continue to follow make further recommendations based on his clinical status.
--- NOTE | 2016-05-23 17:01 | P.PN ---
Subjective This is a 50-year-old woman that is admitted to the hospital with a change in mental status. Patient is apparently transfer from [facility]. Patient was initially treated for pneumonia. It appears that after a significant investigation including MRI of the brain and EEG patient was likely noted to have change in mental status secondary to toxic encephalopathy. Patient was on Klonopin for anxiety and was suddenly titrated off it. There is some concern over excessive use of it. At baseline patient only is able to answer some questions appropriately. Today patient is seen in the ICU vitals are stable. Apparently patient had an incident where patient was agitated overnight. Patient was evaluated by neurology, psychiatry. Patient is stable denies having any additional complaints at this time. 05/23/16 No new overnight events Pt answers questions appropriately Denies chest pain, LISSETH, nausea, vomiting,diarrhea Objective - Vital Signs Vital signs: Vital Signs Temp 98 F 05/23/16 15:17 Pulse 92 05/23/16 15:17 Resp 20 05/23/16 15:17 BP 104/59 05/23/16 15:17 Pulse Ox 90 L 05/23/16 15:17 Intake & Output 05/22/16 05/23/16 05/23/16 18:59 06:59 18:59 Intake Total 200 1150 2100 Output Total 990 2750 1625 Balance -790 -1600 475 Weight 86.6 kg 86.6 kg Intake: IV 200 100 100 0.9 100 100 Dextrose 5% in Water 1, 200 000 ml @ 100 mls/hr IV . Q10H KRISTI Rx#:[id number] Intake, IV Titration 50 Amount Piperacillin-Tazobactam 3 50 .375 gm In Dextrose/Water 1 50ml.bag @ 12.5 mls/hr IVPB Q8H KRISTI Rx#: [id number] Oral 1000 2000 Output: Urine 990 2750 1625 Other: Voiding Method Indwelling Catheter Indwelling Catheter Indwelling Catheter # Voids 1 - Exam Physical exam more arousable Neck is supple no JVD Lungs good air entry clear to auscultation no rhonchi or wheezing Heart S1-S2 heard regular rate and rhythm no murmurs appreciated Abdomen is soft nontender no organomegaly bowel sounds are intact Neurologically cranial nerves II-12 grossly intact no focal motor or sensory deficits noted Skin no abnormalities appreciated Psychiatric flat affect no agitation no hallucinations reported - Labs CBC & Chem 7: 05/23/16 04:05 05/23/16 04:05 Labs: Abnormal Lab Results - Last 24 Hours (Table) 05/22/16 05/22/16 05/23/16 Range/Units 17:41 21:46 04:05 Hgb 12.8 L (13.0-17.5) gm/dL Hct 38.4 L (39.0-53.0) % Sodium (137-145) mmol/L Chloride (98-107) mmol/L Glucose (74-99) mg/dL POC Glucose (mg/dL) 179 H 134 H (75-99) mg/dL 05/23/16 05/23/16 05/23/16 Range/Units 04:05 07:39 12:19 Hgb (13.0-17.5) gm/dL Hct (39.0-53.0) % Sodium 136 L (137-145) mmol/L Chloride 96 L (98-107) mmol/L Glucose 112 H (74-99) mg/dL POC Glucose (mg/dL) 106 H 105 H (75-99) mg/dL Assessment and Plan Plan: Acute toxic encephalopathy #2 acute hypoxic respiratory failure secondary to bilateral pneumonia, improved on room air. #3 mental retardation #4 right hemidiaphragmatic elevation. Plan Judicious use of narcotics. Appreciate psychiatric reevaluation. Continue ongoing care continue abx encourage activity will likely dc home in the next 24 hrs, if deemed safe.
[2016-05-23 17:25] LABS: Glucose,Whole Blood 111 mg/dL (75-99)
[2016-05-23] MEDS: TERAZOSIN 5 MG CAP PO SCH (20:54)
[2016-05-23 20:55] LABS: Glucose,Whole Blood 139 mg/dL (75-99)
[2016-05-23] MEDS: LEVOFLOXACIN 750 MG TAB PO SCH (20:55)
[2016-05-23] MEDS: QUEtiapine 50 MG TAB PO SCH (20:56)
[2016-05-24] MEDS: PIPERACILLIN-TAZOBACTAM 3.375 GM in DEXTROSE/WATER 1 50ML.BAG IVPB SCH ×3 (04:10→19:53)
[2016-05-24] MEDS: IPRATROPIUM-ALBUTEROL 3 ML NEB INHALATION SCH ×4 (07:36→20:38)
[2016-05-24 07:44] LABS: Basophils % (A) 0 %; Eosinophils # (A) 0.2 k/uL (0-0.7); Eosinophils % (A) 3 %; HCT 36.2 % (39.0-53.0); HDW 2.62; Luc # (Auto) 0.18; Luc % (Auto) 3; Lymphocytes # (A) 1.1 k/uL (1.0-4.8); Lymphocytes % (A) 20 %; MCH 29.2 pg (25.0-35.0); MCHC 33.2 g/dL (31.0-37.0); Mean Platelet Volume 8.7; Monocytes # (A) 0.2 k/uL (0-1.0); Monocytes % (A) 4 %; Neutrophils # (A) 3.7 k/uL (1.3-7.7); Neutrophils % (A) 69 %; RBC 4.11 m/uL (4.30-5.90); RDW 13.9 % (11.5-15.5); WBC 5.5 k/uL (3.8-10.6); WBC (Perox) 5.59
[2016-05-24 07:46] LABS: Glucose,Whole Blood 115 mg/dL (75-99)
[2016-05-24 07:52] LABS: ALT 51 U/L (21-72); AST 37 U/L (17-59); Alkaline Phosphatase 61 U/L (38-126); Anion Gap 9 mmol/L; Blood Urea Nitrogen 10 mg/dL (9-20); Calcium 8.8 mg/dL (8.4-10.2); Carbon Dioxide 32 mmol/L (22-30); Chloride 98 mmol/L (98-107); Glucose 118 mg/dL (74-99); Non-African American GFR(MDRD) >60 (>60 ml/min/1.73 sqM); Potassium 3.7 mmol/L (3.5-5.1); Sodium 139 mmol/L (137-145); Total Bilirubin 0.5 mg/dL (0.2-1.3)
[2016-05-24] MEDS: INSULIN LISPRO (humaLOG) 300 UNIT/3 ML VIAL SQ SCH (08:32)
[2016-05-24] MEDS: PROPRANOLOL 40 MG TAB PO SCH ×2 (08:45→20:05)
[2016-05-24] MEDS: FAMOTIDINE 20 MG TAB PO SCH ×2 (08:45→20:06)
[2016-05-24] MEDS: GEMFIBROZIL 600 MG TAB PO SCH ×2 (08:45→17:35)
[2016-05-24] MEDS: ENOXAPARIN 40 MG/0.4 ML SYRINGE SQ SCH (08:45)
[2016-05-24] MEDS: clonazePAM 0.5 MG TAB PO SCH ×3 (08:46→23:35)
[2016-05-24] MEDS: CHOLECALCIFEROL 1,000 UNIT TAB PO SCH ×2 (08:46→20:06)
[2016-05-24 12:07] LABS: Glucose,Whole Blood 105 mg/dL (75-99)
[2016-05-24] MEDS: MULTIVITAMINS, THERA 1 EACH TAB PO SCH (12:49)
--- NOTE | 2016-05-24 19:09 | P.PN ---
Subjective This is a 50-year-old woman that is admitted to the hospital with a change in mental status. Patient is apparently transfer from [facility]. Patient was initially treated for pneumonia. It appears that after a significant investigation including MRI of the brain and EEG patient was likely noted to have change in mental status secondary to toxic encephalopathy. Patient was on Klonopin for anxiety and was suddenly titrated off it. There is some concern over excessive use of it. At baseline patient only is able to answer some questions appropriately. Today patient is seen in the ICU vitals are stable. Apparently patient had an incident where patient was agitated overnight. Patient was evaluated by neurology, psychiatry. Patient is stable denies having any additional complaints at this time. 05/23/16 No new overnight events Pt answers questions appropriately Denies chest pain, LISSETH, nausea, vomiting,diarrhea 05/24/16 doing well no new overnight events answers questions appropriately denies chest pain, n/v, abdominal pain. Objective - Vital Signs Vital signs: Vital Signs Temp 97.8 F 05/24/16 15:00 Pulse 88 05/24/16 16:56 Resp 20 05/24/16 15:00 BP 120/68 05/24/16 15:00 Pulse Ox 96 05/24/16 15:00 Intake & Output 05/24/16 05/24/16 05/25/16 06:59 18:59 06:59 Intake Total 780 Output Total 400 Balance 380 Weight 92 kg Intake: Oral 780 Output: Urine 400 Other: Voiding Method Toilet Toilet # Voids 2 1 - Exam Physical exam more arousable Neck is supple no JVD Lungs good air entry clear to auscultation no rhonchi or wheezing Heart S1-S2 heard regular rate and rhythm no murmurs appreciated Abdomen is soft nontender no organomegaly bowel sounds are intact Neurologically cranial nerves II-12 grossly intact no focal motor or sensory deficits noted Skin no abnormalities appreciated Psychiatric flat affect no agitation no hallucinations reported - Labs CBC & Chem 7: 05/24/16 07:04 05/24/16 07:04 Labs: Abnormal Lab Results - Last 24 Hours (Table) 05/23/16 05/24/16 05/24/16 Range/Units 20:54 07:04 07:04 RBC 4.11 L (4.30-5.90) m/uL Hgb 12.0 L (13.0-17.5) gm/dL Hct 36.2 L (39.0-53.0) % Carbon Dioxide 32 H (22-30) mmol/L Glucose 118 H (74-99) mg/dL POC Glucose (mg/dL) 139 H (75-99) mg/dL Total Protein 6.0 L (6.3-8.2) g/dL Albumin 3.2 L (3.5-5.0) g/dL 05/24/16 05/24/16 Range/Units 07:26 12:03 RBC (4.30-5.90) m/uL Hgb (13.0-17.5) gm/dL Hct (39.0-53.0) % Carbon Dioxide (22-30) mmol/L Glucose (74-99) mg/dL POC Glucose (mg/dL) 115 H 105 H (75-99) mg/dL Total Protein (6.3-8.2) g/dL Albumin (3.5-5.0) g/dL Assessment and Plan Plan: Acute toxic encephalopathy #2 acute hypoxic respiratory failure secondary to bilateral pneumonia, improved on room air. #3 mental retardation #4 right hemidiaphragmatic elevation. Plan Judicious use of narcotics. Appreciate psychiatric reevaluation. Continue ongoing care continue abx encourage activity unable to obtain response from his long term stable for dc
[2016-05-24] MEDS: LEVOFLOXACIN 750 MG TAB PO SCH (19:53)
[2016-05-24] MEDS: QUEtiapine 50 MG TAB PO SCH (20:05)
[2016-05-24] MEDS: TERAZOSIN 5 MG CAP PO SCH (20:06)
--- NOTE | 2016-05-24 20:23 | P.PN ---
Subjective This 50-year-old male continues to be evaluated by the neurology service for worsening mental status. He was transferred from [facility] on May 14, where he was being treated for pneumonia and altered mental status. He has a history of mental delay and has a caregiver. He was initially admitted to an observation floor where he was pulling off his oxygen and his saturations became low. He was then brought up to the ICU on the . He became very agitated and confused and his mental status declined significantly. An initial CT of the brain was done, and showed no acute intracranial abnormalities and a CTA was also done that showed no significant abnormalities, although there was significant movement artifact. His mental status continued to decline. In the last 24 hours his mental status is slightly better, but after talking with his caregiver is not back to baseline. He has been afebrile with a normal white count at last check. He is being treated with antibiotics for pneumonia. At the time of my exam he is lying in bed and in no acute distress. An EEG was performed and showed mild encephalopathy and some rare sharp waves. on 05/21/2016 the patient is being seen in follow-up in intensive care unit. There has been improvement in his neurological function today. The patient was taken off this adequate and he was placed on clonazepam. This probably helped and I suspect that the patient's obtundation was probably a drug effect specially related to his sacral intake. The patient is doing much better. He is communicating. His verbal. His answering questions appropriately. He denies having any respiratory distress. Note that earlier an NG tube was inserted for enteral feeding and this will be ultimately removed and the patient will be resumed back on his oral diet. He remains on a combination of Zosyn and Levaquin being treated for a right lower lobe pneumonia. No chills. No fever. No hemodynamic instability. No other complaints otherwise. Chest x- ray findings are essentially stable with a elevated right hemidiaphragm. On 05/23/2016 the patient is alert and awake and he is following simple commands. NG tube was removed. The patient was provided oral diet. He'll be moved to a chair. No nausea. No vomiting. No emesis per nostril distress. No seizure activity. No focal neurological deficits. He seems to be slowly recovering. On 05/24/2016, the patient is much more interactive. He is fully conversing. He has obvious signs of mental retardation and developmental delay. Nevertheless, he shows no signs of any focal neurological deficits. No seizure activity. He tells me that he got a phone call from his sister which made him quite happy. He has no respiratory distress. He still on a broad-spectrum antibiotics. His chest x-ray shown significant elevation of the right hemidiaphragm probably a right hemidiaphragmatic paralysis. He is tolerating his diet. No other significant events overnight. He is afebrile. He is hemodynamically stable. He is on 2 L of oxygen and his pulse is around 90%. Objective - Vital Signs Vital signs: Vital Signs Temp 97.8 F 05/24/16 15:00 Pulse 88 05/24/16 16:56 Resp 20 05/24/16 15:00 BP 120/68 05/24/16 15:00 Pulse Ox 96 05/24/16 15:00 Intake & Output 05/24/16 05/24/16 05/25/16 06:59 18:59 06:59 Intake Total 780 Output Total 400 Balance 380 Weight 92 kg Intake: Oral 780 Output: Urine 400 Other: Voiding Method Toilet Toilet # Voids 2 1 - Exam Head exam was generally normal. There was no scleral icterus or corneal arcus. Mucous membranes were moist.Neck was supple and without jugular venous distension, thyromegaly, or carotid bruits. Carotids were easily palpable bilaterally. There was no adenopathy. Lung sounds are diminished on the right compared to the left along with some few bibasilar crackles.Cardiac exam revealed the PMI to be normally situated and sized. The rhythm was regular and no extrasystoles were noted during several minutes of auscultation. The first and second heart sounds were normal and physiologic splitting of the second heart sound was noted. There were no murmurs, rubs, clicks, or gallops.Abdominal exam revealed normal bowel sounds. The abdomen was soft, non- tender, and without masses, organomegaly, or appreciable enlargement of the abdominal aorta.Examination of the extremities revealed easily palpable radial, femoral and pedal pulses. There was no cyanosis, clubbing or edema.neurologically, the patient is moving all 4 extremities and communicating. - Labs CBC & Chem 7: 05/24/16 07:04 05/24/16 07:04 Labs: Abnormal Lab Results - Last 24 Hours (Table) 05/23/16 05/24/16 05/24/16 Range/Units 20:54 07:04 07:04 RBC 4.11 L (4.30-5.90) m/uL Hgb 12.0 L (13.0-17.5) gm/dL Hct 36.2 L (39.0-53.0) % Carbon Dioxide 32 H (22-30) mmol/L Glucose 118 H (74-99) mg/dL POC Glucose (mg/dL) 139 H (75-99) mg/dL Total Protein 6.0 L (6.3-8.2) g/dL Albumin 3.2 L (3.5-5.0) g/dL 05/24/16 05/24/16 Range/Units 07:26 12:03 RBC (4.30-5.90) m/uL Hgb (13.0-17.5) gm/dL Hct (39.0-53.0) % Carbon Dioxide (22-30) mmol/L Glucose (74-99) mg/dL POC Glucose (mg/dL) 115 H 105 H (75-99) mg/dL Total Protein (6.3-8.2) g/dL Albumin (3.5-5.0) g/dL Assessment and Plan Plan: Assessment 1 acute bilateral pneumonia with limited bibasilar pulmonary infiltrate and chronic elevation of the right hemidiaphragm 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 On , the patient is completing a course of antibiotics including a combination of Zosyn and Levaquin. Clinically improved. No signs of ongoing rest or checked infection. The patient's chest x-ray shows chronic elevation of right hemidiaphragm which is a old finding. 2 hypoxic respiratory failure, stable. The patient's oxidation is improved and when he to check him on room air. It's my feeling that the patient will need still home O2 at 2 L/m overnight knowing that he has significant right hemidiaphragmatic paralysis/elevation. 3 altered mental status, covered and the patient seems to be back to his baseline 4 developmental delay/mental retardation 5 previous history of right breast reconstruction surgery Plan Advance diet. Physical therapy. Present course of antibiotics for total of 7 days. Evaluate this patient for nocturnal O2. Check his room air pulse ox while awake and assess his daytime oxygen needs.
[2016-05-25] MEDS: PIPERACILLIN-TAZOBACTAM 3.375 GM in DEXTROSE/WATER 1 50ML.BAG IVPB SCH ×3 (03:25→20:09)
[2016-05-25] MEDS: clonazePAM 0.5 MG TAB PO SCH ×3 (08:06→22:41)
[2016-05-25] MEDS: FAMOTIDINE 20 MG TAB PO SCH ×2 (08:06→20:10)
[2016-05-25] MEDS: PROPRANOLOL 40 MG TAB PO SCH ×2 (08:06→20:09)
[2016-05-25] MEDS: CHOLECALCIFEROL 1,000 UNIT TAB PO SCH ×2 (08:07→20:09)
[2016-05-25] MEDS: GEMFIBROZIL 600 MG TAB PO SCH ×2 (08:08→16:53)
[2016-05-25] MEDS: IPRATROPIUM-ALBUTEROL 3 ML NEB INHALATION SCH ×4 (08:30→19:20)
[2016-05-25] MEDS: ENOXAPARIN 40 MG/0.4 ML SYRINGE SQ SCH (10:49)
[2016-05-25] MEDS: MULTIVITAMINS, THERA 1 EACH TAB PO SCH (12:33)
--- NOTE | 2016-05-25 13:04 | P.PN ---
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 He denies any current suicidal or homicidal ideation,denies any hallucination , no aggressive or combative behavior ,he is alert to person ,place but not to exact date ,alert to month and year.He report sleep problem but denies any manic or hypomanic features Patient is able to comprehend most of questions ,delayed reaction time ,speech is coherent ,thought process is linear ,concrete thinking due to his limited intellectual function ASSESSMENT :Patient is improving ,no evidence for psychosis ,I will not restarting him on 400 mg Seroquel , continue low dose of Seroquel to restore his sleep ,continue Klonopin 0.5 mg TID ,discharge to outpatient when medically cleared .Patient has outpatient provider
--- NOTE | 2016-05-25 16:36 | P.PN ---
Subjective This is a 50-year-old woman that is admitted to the hospital with a change in mental status. Patient is apparently transfer from [facility]. Patient was initially treated for pneumonia. It appears that after a significant investigation including MRI of the brain and EEG patient was likely noted to have change in mental status secondary to toxic encephalopathy. Patient was on Klonopin for anxiety and was suddenly titrated off it. There is some concern over excessive use of it. At baseline patient only is able to answer some questions appropriately. Today patient is seen in the ICU vitals are stable. Apparently patient had an incident where patient was agitated overnight. Patient was evaluated by neurology, psychiatry. Patient is stable denies having any additional complaints at this time. 05/23/16 No new overnight events Pt answers questions appropriately Denies chest pain, LISSETH, nausea, vomiting,diarrhea 05/24/16 doing well no new overnight events answers questions appropriately denies chest pain, n/v, abdominal pain. 05/25/16 doing well no new ovneright evnets Objective - Vital Signs Vital signs: Vital Signs Temp 96.9 F L 05/25/16 15:00 Pulse 80 05/25/16 15:55 Resp 20 05/25/16 15:00 BP 120/71 05/25/16 15:00 Pulse Ox 97 05/25/16 15:00 Intake & Output 05/24/16 05/25/16 05/25/16 18:59 06:59 18:59 Weight 92.2 kg Other: Voiding Method Toilet Toilet Toilet # Voids 1 2 - Exam Physical exam more arousable Neck is supple no JVD Lungs good air entry clear to auscultation no rhonchi or wheezing Heart S1-S2 heard regular rate and rhythm no murmurs appreciated Abdomen is soft nontender no organomegaly bowel sounds are intact Neurologically cranial nerves II-12 grossly intact no focal motor or sensory deficits noted Skin no abnormalities appreciated Psychiatric flat affect no agitation no hallucinations reported - Labs CBC & Chem 7: 05/24/16 07:04 05/24/16 07:04 Assessment and Plan Plan: Acute toxic encephalopathy #2 acute hypoxic respiratory failure secondary to bilateral pneumonia, improved on room air. #3 mental retardation #4 right hemidiaphragmatic elevation. Plan Judicious use of narcotics. Appreciate psychiatric reevaluation. Continue ongoing care continue abx encourage activity unable to obtain response from his [facility] stable for dc
[2016-05-25] MEDS: PSYLLIUM HUSK 100% 6 GM PACKET PO SCH (16:53)
[2016-05-25] MEDS: LEVOFLOXACIN 750 MG TAB PO SCH (20:09)
[2016-05-25] MEDS: QUEtiapine 50 MG TAB PO SCH (20:09)
[2016-05-25] MEDS: TERAZOSIN 5 MG CAP PO SCH (20:10)
[2016-05-25 22:41] VITALS: RESP 16
[2016-05-26] MEDS: PIPERACILLIN-TAZOBACTAM 3.375 GM in DEXTROSE/WATER 1 50ML.BAG IVPB SCH ×2 (04:20→11:50)
[2016-05-26] MEDS: ENOXAPARIN 40 MG/0.4 ML SYRINGE SQ SCH (07:27)
[2016-05-26] MEDS: PSYLLIUM HUSK 100% 6 GM PACKET PO SCH (07:27)
[2016-05-26] MEDS: CHOLECALCIFEROL 1,000 UNIT TAB PO SCH (07:27)
[2016-05-26] MEDS: PROPRANOLOL 40 MG TAB PO SCH (07:27)
[2016-05-26] MEDS: clonazePAM 0.5 MG TAB PO SCH ×2 (07:27→17:30)
[2016-05-26] MEDS: FAMOTIDINE 20 MG TAB PO SCH (07:28)
[2016-05-26] MEDS: GEMFIBROZIL 600 MG TAB PO SCH ×2 (07:28→17:30)
--- NOTE | 2016-05-26 07:31 | XR ---
EXAMINATION TYPE: XR chest 1V portable DATE OF EXAM: 05/26/2016 7:22 AM COMPARISON: 05/23/2016 HISTORY: Shortness of breath TECHNIQUE: Single frontal view of the chest is obtained. FINDINGS: Persistent elevated right hemidiaphragm with subsegmental perihilar lower lobe consolidati on. Left lung clear. Heart size stable. No pneumothorax. IMPRESSION: 1. Stable right hemidiaphragm elevation and basilar infiltrate follow to resolution to exclude underl emy neoplasm.
[2016-05-26 08:01] LABS: Basophils % (A) 1 %; CH 29.1; CHCM 32.3; Eosinophils # (A) 0.2 k/uL (0-0.7); Eosinophils % (A) 4 %; HCT 38.9 % (39.0-53.0); HDW 2.68; HGB 12.6 gm/dL (13.0-17.5); Luc # (Auto) 0.15; Luc % (Auto) 3; Lymphocytes # (A) 1.2 k/uL (1.0-4.8); Lymphocytes % (A) 25 %; MCH 29.3 pg (25.0-35.0); MCHC 32.5 g/dL (31.0-37.0); MCV 90.2 fL (80.0-100.0); Monocytes # (A) 0.2 k/uL (0-1.0); Monocytes % (A) 5 %; Neutrophils % (A) 63 %; RBC 4.31 m/uL (4.30-5.90); RDW 14.1 % (11.5-15.5); WBC 4.8 k/uL (3.8-10.6); WBC (Perox) 5.31
[2016-05-26] MEDS: IPRATROPIUM-ALBUTEROL 3 ML NEB INHALATION SCH ×3 (08:07→15:54)
[2016-05-26 08:14] LABS: ALT 40 U/L (21-72); AST 27 U/L (17-59); Alkaline Phosphatase 71 U/L (38-126); Anion Gap 11 mmol/L; Blood Urea Nitrogen 6 mg/dL (9-20); Calcium 9.3 mg/dL (8.4-10.2); Carbon Dioxide 29 mmol/L (22-30); Chloride 101 mmol/L (98-107); Glucose 108 mg/dL (74-99); Non-African American GFR(MDRD) >60 (>60 ml/min/1.73 sqM); Sodium 141 mmol/L (137-145); Total Bilirubin 0.5 mg/dL (0.2-1.3); Total Protein 6.8 g/dL (6.3-8.2)
[2016-05-26 08:38] VITALS: BP 109/68; TEMP 97.5
[2016-05-26] MEDS: IPRATROPIUM-ALBUTEROL 3 ML NEB INHALATION PRN (09:19)
[2016-05-26 09:28] VITALS: PULSE 78
[2016-05-26] MEDS: MULTIVITAMINS, THERA 1 EACH TAB PO SCH (11:50)
[2016-05-26] MEDS ORDERED: ALBUTEROL INHALER 60 PUFF/8 GM INHALER INHALATION PRN (15:31)
--- NOTE | 2016-05-26 15:43 | P.PN ---
Subjective Principal diagnosis: Acute bilateral pneumonia and chronic elevation of right hemidiaphragm secondary to paralysis. This 50-year-old male continues to be evaluated by the neurology service for worsening mental status. He was transferred from [facility] on May 14, where he was being treated for pneumonia and altered mental status. He has a history of mental delay and has a caregiver. He was initially admitted to an observation floor where he was pulling off his oxygen and his saturations became low. He was then brought up to the ICU on the . He became very agitated and confused and his mental status declined significantly. An initial CT of the brain was done, and showed no acute intracranial abnormalities and a CTA was also done that showed no significant abnormalities, although there was significant movement artifact. His mental status continued to decline. In the last 24 hours his mental status is slightly better, but after talking with his caregiver is not back to baseline. He has been afebrile with a normal white count at last check. He is being treated with antibiotics for pneumonia. At the time of my exam he is lying in bed and in no acute distress. An EEG was performed and showed mild encephalopathy and some rare sharp waves. on 05/21/2016 the patient is being seen in follow-up in intensive care unit. There has been improvement in his neurological function today. The patient was taken off this adequate and he was placed on clonazepam. This probably helped and I suspect that the patient's obtundation was probably a drug effect specially related to his sacral intake. The patient is doing much better. He is communicating. His verbal. His answering questions appropriately. He denies having any respiratory distress. Note that earlier an NG tube was inserted for enteral feeding and this will be ultimately removed and the patient will be resumed back on his oral diet. He remains on a combination of Zosyn and Levaquin being treated for a right lower lobe pneumonia. No chills. No fever. No hemodynamic instability. No other complaints otherwise. Chest x- ray findings are essentially stable with a elevated right hemidiaphragm. On 05/23/2016 the patient is alert and awake and he is following simple commands. NG tube was removed. The patient was provided oral diet. He'll be moved to a chair. No nausea. No vomiting. No emesis per nostril distress. No seizure activity. No focal neurological deficits. He seems to be slowly recovering. On 05/24/2016, the patient is much more interactive. He is fully conversing. He has obvious signs of mental retardation and developmental delay. Nevertheless, he shows no signs of any focal neurological deficits. No seizure activity. He tells me that he got a phone call from his sister which made him quite happy. He has no respiratory distress. He still on a broad-spectrum antibiotics. His chest x-ray shown significant elevation of the right hemidiaphragm probably a right hemidiaphragmatic paralysis. He is tolerating his diet. No other significant events overnight. He is afebrile. He is hemodynamically stable. He is on 2 L of oxygen and his pulse is around 90%. Reevaluated today on 05/26/2016, patient is doing well, feeling much better, breathing a lot easier. Chest x-ray continues to show elevated right hemidiaphragm, and some basilar infiltrate or atelectasis especially at the right base. Left lung is clear. Objective - Vital Signs Vital signs: Vital Signs Temp 97.5 F L 05/26/16 07:00 Pulse 78 05/26/16 09:28 Resp 16 05/26/16 07:00 BP 109/68 05/26/16 07:00 Pulse Ox 93 L 05/26/16 09:01 Intake & Output 05/25/16 05/26/16 05/26/16 18:59 06:59 18:59 Intake Total 722 50 Balance 722 50 Weight 92.2 kg 92 kg Intake: Intake, IV Titration 50 Amount Piperacillin-Tazobactam 3 50 .375 gm In Dextrose/Water 1 50ml.bag @ 12.5 mls/hr IVPB Q8H [facility] Rx#: [id number] Oral 722 Other: Voiding Method Toilet Toilet Toilet # Voids 2 1 3 - Exam Head exam was generally normal. There was no scleral icterus or corneal arcus. Mucous membranes were moist.Neck was supple and without jugular venous distension, thyromegaly, or carotid bruits. Carotids were easily palpable bilaterally. There was no adenopathy. Lung sounds are diminished on the right compared to the left along with some few bibasilar crackles.Cardiac exam revealed the PMI to be normally situated and sized. The rhythm was regular and no extrasystoles were noted during several minutes of auscultation. The first and second heart sounds were normal and physiologic splitting of the second heart sound was noted. There were no murmurs, rubs, clicks, or gallops.Abdominal exam revealed normal bowel sounds. The abdomen was soft, non- tender, and without masses, organomegaly, or appreciable enlargement of the abdominal aorta.Examination of the extremities revealed easily palpable radial, femoral and pedal pulses. There was no cyanosis, clubbing or edema.neurologically, the patient is moving all 4 extremities and communicating. - Labs CBC & Chem 7: 05/26/16 07:28 05/26/16 07:28 Labs: Abnormal Lab Results - Last 24 Hours (Table) 05/26/16 05/26/16 Range/Units 07:28 07:28 Hgb 12.6 L (13.0-17.5) gm/dL Hct 38.9 L (39.0-53.0) % BUN 6 L (9-20) mg/dL Glucose 108 H (74-99) mg/dL Assessment and Plan Plan: 1 acute bilateral pneumonia with limited bibasilar pulmonary infiltrate and chronic elevation of the right hemidiaphragm 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 On , the patient is completing a course of antibiotics including a combination of Zosyn and Levaquin. Clinically improved. No signs of ongoing rest or checked infection. The patient's chest x-ray shows chronic elevation of right hemidiaphragm which is a old finding. 2 hypoxic respiratory failure, stable. The patient's oxidation is improved and when he to check him on room air. It's my feeling that the patient will need still home O2 at 2 L/m overnight knowing that he has significant right hemidiaphragmatic paralysis/elevation. 3 altered mental status, covered and the patient seems to be back to his baseline 4 developmental delay/mental retardation 5 previous history of right breast reconstruction surgery Recommendation: Continue present treatment plan, consider discharge planning in the next 24 hours. Time with Patient: Less than 30
--- NOTE | 2016-05-26 16:25 | P.DS ---
Providers Date of admission: 05/14/16 16:34 Attending physician: Caridad Jc Consults: 05/15/16 01:10 Consult Physician Stat Consulting Provider: Jose Raul Hoang Consult Reason/Comments: Abnormal ABGs Do you want consulting provider notified?: Yes 05/17/16 11:17 Consult Physician Stat Consulting Provider: Shanae Jacques Consult Reason/Comments: altered mental status Do you want consulting provider notified?: Yes 05/18/16 13:48 Consult Physician Stat Consulting Provider: Karley Garvin Consult Reason/Comments: Altered Mental status Hx of Bipolar Schizophrenia Do you want consulting provider notified?: Yes Primary care physician: [facility] Course: This is a 50-year-old woman that is admitted to the hospital with a change in mental status. Patient is apparently transfer from [facility]. Patient was initially treated for pneumonia. It appears that after a significant investigation including MRI of the brain and EEG patient was likely noted to have change in mental status secondary to toxic encephalopathy. Patient was on Klonopin for anxiety and was suddenly titrated off it. There is some concern over excessive use of it. At baseline patient only is able to answer some questions appropriately. Today patient is seen in the ICU vitals are stable. Apparently patient had an incident where patient was agitated overnight. Patient was evaluated by neurology, psychiatry. Patient is stable denies having any additional complaints at this time. 05/23/16 No new overnight events Pt answers questions appropriately Denies chest pain, LISSETH, nausea, vomiting,diarrhea 05/24/16 doing well no new overnight events answers questions appropriately denies chest pain, n/v, abdominal pain. 05/25/16 doing well no new ovneright evnets 05/26/16 No new overnight events - Exam Physical exam more arousable Neck is supple no JVD Lungs good air entry clear to auscultation no rhonchi or wheezing Heart S1-S2 heard regular rate and rhythm no murmurs appreciated Abdomen is soft nontender no organomegaly bowel sounds are intact Neurologically cranial nerves II-12 grossly intact no focal motor or sensory deficits noted Skin no abnormalities appreciated Psychiatric flat affect no agitation no hallucinations reported - Labs CBC & Chem 7: 05/24/16 07:04 05/24/16 07:04 Assessment and Plan Plan: Acute toxic encephalopathy #2 acute hypoxic respiratory failure secondary to bilateral pneumonia, improved on room air. #3 mental retardation #4 right hemidiaphragmatic elevation. .#5 chronic nocturnal o2 use. abx for 7 days Follow up appointments given on dc paperwork Plan - Discharge Summary New Discharge Prescriptions: Ipratropium-Albuterol Nebulize [Duoneb 0.5 mg-3 mg/3 ml Soln] 3 ml INHALATION RT -QID #120 ampul.neb Levofloxacin [Levaquin] 750 mg PO DAILY #6 tab QUEtiapine [SEROquel] 50 mg PO HS #30 tab Discharge Medication List Cetirizine HCl [Zyrtec] 10 mg PO DAILY 05/14/16 [History] Cholecalciferol [Vitamin D3] 2,000 unit PO BID 05/14/16 [History] Gemfibrozil [Lopid] 600 mg PO BID 05/14/16 [History] Multivitamins, Thera [Multivitamin] 1 tab PO DAILY 05/14/16 [History] Propranolol [Inderal] 40 mg PO BID 05/14/16 [History] Ranitidine HCl [Zantac] 150 mg PO BID 05/14/16 [History] Terazosin [Hytrin] 5 mg PO HS 05/14/16 [History] Ipratropium-Albuterol Nebulize [Duoneb 0.5 mg-3 mg/3 ml Soln] 3 ml INHALATION RT -QID #120 ampul.neb 05/26/16 [Rx] Levofloxacin [Levaquin] 750 mg PO DAILY #6 tab 05/26/16 [Rx] Psyllium Husk 100% [Metamucil Packet] 6 gm PO DAILY packet 05/26/16 [Rx] QUEtiapine [SEROquel] 50 mg PO HS #30 tab 05/26/16 [Rx] Sodium Chloride 0.65% Nasal [Deep Sea] 2 spray NASAL QID PRN #0 spray 05/26/16 [ Rx] clonazePAM [KlonoPIN] 0.5 mg PO TID@0900,1600,2000 #0 05/26/16 [Rx] Follow up Appointment(s)/Referral(s): Dr. GINA MELENDEZ. [Other] - 1 Week Ramirez Kinsey DO [Primary Care Provider] - 3 Days Ameena Solano MD [STAFF PHYSICIAN] - 2 Weeks Ambulatory/Diagnostic Orders: Complete Blood Count w/diff [LAB.AMB] Time Frame: 3 Days, Location: Determined By Patient Activity/Diet/Wound Care/Special Instructions: 2lnc O2 at night r/t diaphragmatic paralysis on the right per pulmonary 93% O2 Sat on RA after ambulation
--- NOTE | 2016-05-27 10:47 | CDI ---
In responding to this query, please exercise your independent professional judgment. The [facility] Coding Staff and Clinical Documentation Specialists appreciate your assistance in clarifying documentation, maintaining compliance with coding guidelines, accurately documenting patients condition and capturing severity of illness. The fact that a question is asked does not imply that any particular answer is desired or expected. Communication forms are a method of clarifying documentation and are not made part of the Legal Health Record. Thank you in advance for your clarification. Last Revision, January 2015 Yovana Walsh [address] [address] Documentation Clarification Form Date: 05/27/2016 10:32:00 AM From: Natividad Dalton CCS, CCDS Admit Date: 05/14/2016 4:34:00 PM Patient Name: Carlos Peña Visit Number: [id number] Discharge Date: 05/26/2016 Dr. Emeka Zimmerman: Sepsis is documented in the attending progress note: 05/21. Also documented by the cloth picker in the progress notes. History/Risk Factors: Noncompliance with medical treatment, Hypertension, Developmental delay. Clinical Indicators: 50 yo male admitted with Acute Exacerbation of COPD, Bibasilar Pneumonia, possibly gram negative and acute hypoxic hypercarbic respiratory failure. VS: T 98.3 - 99.2 - 101.5; BP 112/61 LAB: WBC: (5.1), Lactic Acid (0.7) Treatment: Albuterol INH, O2, IV Lasix, IV Levaquin, IV Zosyn Consults: Pulmonary, Neurology, Psychiatry In your professional opinion, can you please clarify if these findings signify one of the following conditions, whether the condition is POA, and cause, if known? SIRS, without underlying infectious process Sepsis Severe Sepsis Septic Shock Unable to determine Other, please specify o Identify the (suspected) organism o Link or clarify if there is associated (due to/with): Organ failure Shock Please document in your progress notes and discharge summary in order to capture severity of illness and risk of mortality. Include clinical findings that support your diagnosis. FYI: Press F11 to launch patient chart. Place X here if this finding has no clinical significance, is not applicable or if you are not able to provide any additional documentation. Thank You. RA
== END 2016-05-26 18:26 | disposition home or self-care (01) | DRG 871 ==
LOC: EC 14:32 → 6SEL 16:34 → 6ICU 05-15 18:28 → 5MS5E 05-23 14:14
PROVIDERS: ADMIT Hospitalist; ATTEND Hospitalist
DX: A41.9 Sepsis, unspecified organism (principal); G92 Toxic encephalopathy; J15.6 Pneumonia due to other Gram-negative bacteria; J96.01 Acute respiratory failure with hypoxia; J96.02 Acute respiratory failure with hypercapnia; E87.2 Acidosis; E87.0 Hyperosmolality and hypernatremia; J44.0 Chronic obstructive pulmonary disease with (acute) lower respiratory infection; E87.1 Hypo-osmolality and hyponatremia; F13.239 Sedative, hypnotic or anxiolytic dependence with withdrawal, unspecified; J44.1 Chronic obstructive pulmonary disease with (acute) exacerbation; D69.6 Thrombocytopenia, unspecified; F25.0 Schizoaffective disorder, bipolar type; F41.9 Anxiety disorder, unspecified; F79 Unspecified intellectual disabilities; J98.6 Disorders of diaphragm; I10 Essential (primary) hypertension; R26.9 Unspecified abnormalities of gait and mobility; R45.1 Restlessness and agitation; Z87.891 Personal history of nicotine dependence; Z91.19 Patient's noncompliance with other medical treatment and regimen; Z79.899 Other long term (current) drug therapy
CPT/HCPCS: 36600; 70450; 70496; 70498; 70551; 71010; 71020; 71275; 80048; 80053; 81001; 82805; 83605; 83735; 84100; 85025; 85027; 87040; 87086; 94640; 94660; 94760; 95816; 99285

== ENCOUNTER 2019-08-20 14:57 | Emergency (ER) | payer OTHER ==
[2019-08-20 15:14] VITALS: TEMP 98.7
[2019-08-20] MEDS ORDERED: Acetaminophen-Codeine 300-30mg TAB PO STA (15:23)
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
[2019-08-20] MEDS ORDERED: MORPHINE SULFATE 4 MG/ML SYRINGE IV STA (16:03)
--- NOTE | 2019-08-20 16:32 | CT ---
EXAMINATION TYPE: CT lumbar spine wo con DATE OF EXAM: 08/20/2019 4:20 PM COMPARISON: None HISTORY: lumbar compression fx CT DLP: 1594.6 mGycm Automated exposure control for dose reduction was used. TECHNIQUE Unenhanced CT of the lumbar spine was performed. Bone and soft tissue window settings are submitted as well as coronal and sagittal reconstructions. As seen on the lumbar spine x-rays of the same date there is a mild compression deformity of L2 with anterior superior vertebral body height lo ss of less than 5%. There is a comminution buckling of the anterior superior cortex. No extension int o the posterior elements is seen. No retropulsion. There is a very mild compression deformity of T12 with vertebral body height loss of less than 10%. N o retropulsion. Vacuum disc phenomenon at T12-L1. Minimal retrolisthesis of L5 on S1. Sacroiliac join ts are overall symmetric in the visualized portions. Visualized portions of the medial lower ribs are grossly intact. Transverse processes of the lumbar spine appear intact. Sacroiliac joint sclerosis i s mild and likely degenerative. Evaluation of the spinal canal is limited on CT. Possible questionabl e small disc herniation at L1-L2. Motion artifact slightly limits the exam especially of evaluation of the unenhanced viscera. Nonobstr ucting appearing punctate right renal calculus is seen. Atherosclerosis of the abdominal aorta noted. Mild multilevel degenerative change of the spine. IMPRESSION: 1. Mild compression deformity of the L2 vertebral body with vertebral body height loss of less than 5 %. Anterior cortex of the superior endplate is mildly comminuted. No extension into the posterior edis ments. This is likely acute. MRI could confirm bone marrow edema and acuity. 2. Minimal vertebral body height loss of T12. No acute appearing fracture line. Possible chronic comp ression deformity. 3. Mild retrolisthesis of L5 on S1, likely on a degenerative basis. 4. Evaluation of the spinal canal is limited on CT. There is a questionable disc herniation at L1-L2.
--- NOTE | 2019-08-20 17:23 | P.PN ---
Progress Note - Text Progress Note Date: 08/20/19 I was contacted by the ER regarding an L2 compression fracture in this patient. My spine partner, Dr. Sykes, reviewed the imaging and recommended he be fit for an LSO brace and that if the brace could not be delivered this afternoon, that he could be discharged from the ER with a script for a brace if the ER determined he was stable. I had no part in the decision making or disposition for this patient. The recommendation for a brace was made by Dr. Sykes and the safety for discharge home/disposition was deferred to the ER and trauma service.
[2019-08-20] MEDS ORDERED: ACET/COD 300 MG/30 MG STARTER PACK 6 TAB BTL PO STA (18:13)
[2019-08-20 18:28] VITALS: BP 146/67; PULSE 88; RESP 16
== END 2019-08-20 18:28 | disposition home or self-care (01) ==
LOC: EEVIPCON 14:57 → EC 14:57
DX: S32.029A Unspecified fracture of second lumbar vertebra, initial encounter for closed fracture (principal); I10 Essential (primary) hypertension; Z79.899 Other long term (current) drug therapy; Z87.891 Personal history of nicotine dependence; V43.62XA Car passenger injured in collision with other type car in traffic accident, initial encounter; Y92.410 Unspecified street and highway as the place of occurrence of the external cause
CPT/HCPCS: 72100; 72131; 99285; 96374; J2270